=== PATIENT | male | born 1985 | race Caucasian/White ===

== ENCOUNTER 2019-07-01 11:58 | Emergency (ER) | payer BC, MEDICAID, SELFPAY ==
[2019-07-01 12:23] VITALS: BP 135/73; PULSE 95; RESP 18; TEMP 36.9; O2SAT 96
--- NOTE | 2019-07-01 13:17 | ED.SKABFB ---
HPI - Skin/Abscess/Foreign Bdy General Chief complaint: Skin/Abscess/Foreign Body Stated complaint: Open wound on L Arm thats infected Source: patient Mode of arrival: ambulatory Limitations: no limitations History of Present Illness HPI narrative: This 33-year-old male has a long history of IV drug use. He developed drainage from his left forearm a month ago associated with tenderness and redness. The drainage stopped, but recurred 2 weeks ago. He was encouraged to be seen today because it continues to drain. He has pain only when palpated or contused. Ror the last couple of weeks he has also had swelling of his left hand. No history of injecting into hand blood vessels. He has history of recurrent skin abscesses associated his IV drug use. He has been opioid free for the last week or so resulting in familiar shivering and myalgias of withdrawal. He started a methadone treatment today. He denies fever. He has DM- insulin dependent ;his blood sugars have been running between 140 and 160. He checks twice a day; takes insulin 4 times a day Related Data Home Medications Medication Instructions Recorded Confirmed gabapentin 600 mg PO TID 02/13/19 07/01/19 insulin aspart U-100 [Novolog 0 unit SUBCUT TID 02/13/19 07/01/19 Flexpen U-100 Insulin] insulin glargine [Lantus Solostar 30 unit SUBCUT 02/13/19 07/01/19 U-100 Insulin] lamotrigine 100 mg PO TID 02/13/19 07/01/19 trazodone 100 mg PO HS 02/13/19 07/01/19 zolpidem 10 mg PO HS 02/13/19 07/01/19 clonazepam 2 mg PO TID 02/24/19 07/01/19 methadone See Rx Instructions .ROUTE .COMPLEX 07/01/19 Allergies Allergy/AdvReac Type Severity Reaction Status Date / Time No Known Allergies Allergy Unverified 01/05/13 19:19 Review of Systems Constitutional: Constitutional: Reports no additional constitutional complaints ENT: Denies nasal congestion and Denies sore throat Cardiovascular: Cardiovascular: Denies chest pain Respiratory: Respiratory: Denies cough and Denies dyspnea Gastrointestinal: Gastrointestinal: Denies diarrhea, Denies nausea and Denies vomiting PMF Past Medical History Medical History (Updated 07/01/19 @ 20:14 by Adi Babcock MD) Diabetes Drug abuse Opioid use disorder Surgical History Surgical History (Updated 02/24/19 @ 17:30 by Jared Villarreal MD) History of back surgery Family History Family History (Updated 02/24/19 @ 17:30 by Jared Villarreal MD) Father Diabetes mellitus Social History Social History (Updated 02/13/19 @ 16:06 by Adi Woodall MD) Smoking status: Never smoker Substance use: current Substance use type: opiates Exam Const: General: no acute distress Orientation/consciousness: patient oriented x3 Skin: Other: Left forearm is slightly more swollen throughout compared to the right. At the junction of the upper and middle 3rd there is a 2 -3 cm eschar the center of which has a small draining abscess. The discharge is milky white. There is an approximate 7 cm area surrounding this is tender iinduration. There is no bogginess or red streaks going up the arm. The upper 2/3 of the volar forearm skin is thick and indurated. There are no epitrochlear or auxillary lymph nodes. The left hand and fingers are edematous. There is no redness or tenderness. Neuro: General: patient oriented x3 Other: Light touch sensation to the left hand is intact Extrem: Left upper extremity: wrist (full ROM ) normal ROM and hand (full finger extension, full flexion is limited by hand swelling. ) no tenderness Course Vital Signs Vital signs: Vital Signs Temperature 36.9 C 07/01/19 12:23 Pulse Rate 95 07/01/19 12:23 Respiratory Rate 18 07/01/19 12:23 Blood Pressure 135/73 07/01/19 12:23 Pulse Oximetry 96 07/01/19 12:23 Temperature 36.9 C 07/01/19 12:23 Pulse Rate 95 07/01/19 12:23 Respiratory Rate 18 07/01/19 12:23 Blood Pressure 135/73 07/01/19 12:23 Pulse
== END 2019-07-01 13:40 | disposition home or self-care (01) ==
PROVIDERS: Emergency Provider Family Medicine
DX: L03.114 Cellulitis of left upper limb (principal); I89.0 Lymphedema, not elsewhere classified
CPT/HCPCS: 87070; 87077; 87186; 87205; 99283

== ENCOUNTER 2019-09-09 14:13 | Emergency (ER) | payer BC, MEDICAID, SELFPAY ==
--- NOTE | 2019-09-09 14:42 | ED.SKABFB ---
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 Patient states that he has had no fever, shortness of breath, vomiting, or weakness. He states he is recently enrolled in the methadone clinic and had a negative COVID test in the last 3 or 4 days.. States that he was having a sore throat at the time but that has since resolved. MD complaint: abscess/boil Onset (ago): day(s) Location: LUE and RUE Quality: burning and sharp Pain Consistency: constant Exacerbating factors: palpation Context: IVDA Related Data Home Medications Medication Instructions Recorded Confirmed gabapentin 600 mg PO TID 02/13/19 09/09/19 insulin aspart U-100 [Novolog 0 unit SUBCUT TID 02/13/19 09/09/19 Flexpen U-100 Insulin] insulin glargine [Lantus Solostar 30 unit SUBCUT HS 02/13/19 09/09/19 U-100 Insulin] lamotrigine 100 mg PO TID 02/13/19 09/09/19 trazodone 100 mg PO HS 02/13/19 09/09/19 zolpidem 10 mg PO HS 02/13/19 09/09/19 methadone See Rx Instructions .ROUTE .COMPLEX 07/01/19 09/09/19 Allergies Allergy/AdvReac Type Severity Reaction Status Date / Time No Known Allergies Allergy Unverified 09/09/19 14:42 Review of Systems Constitutional: Constitutional: Reports chills and Reports fever(s) ENT: Denies dysphagia, Denies nasal congestion and Denies sore throat Cardiovascular: Cardiovascular: Denies chest pain and Denies radiating jaw, neck or arm pain Respiratory: Respiratory: Denies cough, Denies dyspnea and Denies wheezing Gastrointestinal: Gastrointestinal: Denies abdominal pain, Denies nausea and Denies vomiting Genitourinary: Genitourinary: Denies dysuria and Denies urinary frequency Musculoskeletal: Musculoskeletal: Denies arthralgias and Denies joint swelling Integumentary/Breasts: Skin/Breast: Denies pruritus, Denies erythema and Denies rash Neurologic: Denies vertigo, Denies dizziness and Denies syncope Hematologic/Lymphatic: Hematologic/Lymphatic: Denies easy bleeding and Denies easy bruising Allergic/Immunologic: Allergic/Immunologic: Denies lip swelling and Denies wheezing PMFSH Past Medical History Medical History Diabetes Drug abuse Opioid use disorder Surgical History Surgical History History of back surgery Family History Family History (Updated 02/24/19 @ 17:30 by Jared Villarreal MD) Father Diabetes mellitus Social History Social History Smoking status: Never smoker Substance use: current Substance use type: opiates Gender identity (if verbalized by the patient): Male Exam Const: General: alert Orientation/consciousness: patient oriented x3 Limitations: no limitations Other: Mild acute distress Eyes: Conjunctivae: conjunctivae normal Pupils: Equal, round and reactive pupils present EOM: EOMs intact bilaterally Resp: Effort & Inspection: normal respiratory effort and not labored Auscultation: clear to auscultation bilaterally, no rales, no rhonchi and no wheezes Cardio: Rate: regular rate Rhythm: regular rhythm Heart sounds: no murmurs Skin: General skin exam: normal color, no jaundice and no pallor Rashes: no rashes Other: patient has multiple healing lesions over the forearms left greater than right. There is a erythematous and tender area of swelling near the right lateral epicondyle of the elbow which is nonfluctuant and only mildly indurated. There is some mild warmth without erythema of the lef
[2019-09-09 14:48] VITALS: BP 144/84; PULSE 63; RESP 12; TEMP 37.3; O2SAT 98
== END 2019-09-09 15:12 | disposition home or self-care (01) ==
PROVIDERS: Emergency Provider Emergency Medicine
DX: L02.414 Cutaneous abscess of left upper limb (principal); L02.413 Cutaneous abscess of right upper limb
CPT/HCPCS: 99283

== ENCOUNTER 2020-01-10 13:45 | Emergency (ER) | payer BC, MEDICAID, SELFPAY ==
[2020-01-10 14:10] VITALS: BP 150/68; PULSE 88; RESP 20; TEMP 36.7; O2SAT 95
--- NOTE | 2020-01-10 14:30 | ED.GENADULT ---
HPI - General Adult General Chief complaint: Extremity Injury, Upper Stated complaint: pain in both arms Source: patient Mode of arrival: ambulatory Limitations: no limitations History of Present Illness HPI narrative: Keanu is a 34M with a PMH significant for IV drug use and recurrent cellulitis. Over the last few days he has had increasing swelling, warmth, redness, tenderness and weaping from his injection sites and arm wounds. He has several episodes of cellulitis that have presented this way in the past. He denies any fevers, chills, nausea, vomiting, CP or SOB. Related Data Home Medications Medication Instructions Recorded Confirmed gabapentin 600 mg PO TID 02/13/19 09/09/19 insulin aspart U-100 [Novolog 0 unit SUBCUT TID 02/13/19 09/09/19 Flexpen U-100 Insulin] insulin glargine [Lantus Solostar 30 unit SUBCUT HS 02/13/19 09/09/19 U-100 Insulin] lamotrigine 100 mg PO TID 02/13/19 09/09/19 trazodone 100 mg PO HS 02/13/19 09/09/19 zolpidem 10 mg PO HS 02/13/19 09/09/19 methadone See Rx Instructions .ROUTE .COMPLEX 07/01/19 09/09/19 Allergies Allergy/AdvReac Type Severity Reaction Status Date / Time No Known Allergies Allergy Unverified 09/09/19 14:42 Review of Systems Constitutional: Constitutional: Denies chills, Denies fever(s) and Denies weakness Eyes: Eyes: Reports no additional eye complaints ENT: Reports system reviewed and no additional complaints, except as documented Cardiovascular: Cardiovascular: Reports no additional cardiovascular complaints Respiratory: Respiratory: Reports no additional respiratory complaints Gastrointestinal: Gastrointestinal: Reports no additional gastrointestinal complaints Genitourinary: Genitourinary: Reports no additional male genitourinary complaints Musculoskeletal: Musculoskeletal: Reports no additional musculoskeletal complaints Integumentary/Breasts: Skin/Breast: Reports as per HPI Neurologic: Reports system reviewed and no additional complaints, except as documented Psychiatric: Psychiatric: Reports no additional psychiatric complaints Endocrine: Endocrine: Reports no additional endocrine complaints Hematologic/Lymphatic: Hematologic/Lymphatic: Reports no additional hematologic/lymphatic complaints Allergic/Immunologic: Allergic/Immunologic: Reports no additional allergic/immunologic complaints [facility] Past Medical History Medical History Diabetes Drug abuse Opioid use disorder Surgical History Surgical History History of back surgery Family History Family History Father Diabetes mellitus Social History Social History Smoking status: Never smoker Substance use: current Substance use type: opiates Gender identity (if verbalized by the patient): Male Exam Const: General: no acute distress and alert Orientation/consciousness: patient oriented x3 Limitations: No altered mental status HENMT: Head: normal to inspection Eyes: Pupils: Equal, round and reactive pupils present Neck: Neck: normal visual inspection Resp: Effort & Inspection: normal respiratory effort Auscultation: clear to auscultation bilaterally Cardio: Rate: regular rate Rhythm: regular rhythm Heart sounds: no murmurs GI: Inspection: non-distended GI Palp: Yes Soft to palpation, No Tenderness to palpation present (GI) and No Guarding due to palpation present (GI) Skin: Other: Forearms were covered with many scarred over lesions bilaterally. Several had overlying redness and induration and were TTP and warm. Some had drainage. Peripheral pulses and sensation intact. No splinter hemorrhages or osler nodes. Neuro: General: patient oriented x3 and moves all extremities Extrem: General: normal to inspection Psych: Mental Status: menta
[2020-01-10] MEDS: CEPHALEXIN 500 MG CAPSULE (14:46)
[2020-01-10 14:57] VITALS: PULSE 84; RESP 20; O2SAT 96
== END 2020-01-10 14:58 | disposition home or self-care (01) ==
PROVIDERS: Emergency Provider Family Medicine
DX: L03.90 Cellulitis, unspecified (principal)
CPT/HCPCS: 99283; A9270

== ENCOUNTER 2020-03-04 16:16 | Emergency (ER) | payer BC, MEDICAID, SELFPAY ==
--- NOTE | 2020-03-04 16:39 | ED.WOUNDLAC ---
HPI - Wound/Laceration General Chief Complaint: Wound/Laceration Stated Complaint: wound infections Source: patient Mode of arrival: ambulatory History of Present Illness HPI narrative: this is a 34-year-old gentleman heroin abuser injects in his lower extremities history of diabetes and hypertension presents today with skin lesions currently there is no drainage but is located bilateral lateral aspect of his thighs with some erythema warmth and tenderness the area extends about 3cm in diameter and both lower extremities. The patient otherwise has no fever chills no shortness of breath no abdominal pain no chest pain no nausea vomiting no diarrhea constipation. Onset (ago): day(s) Location: other ( lower extremities) Extremity Location: Right: thigh ( skin wounds) Place: home Patient tetanus UTD: Yes Context: other ( heroin user) Associated symptoms: pain Related Data Home Medications Medication Instructions Recorded Confirmed gabapentin 600 mg PO TID 02/13/19 09/09/19 insulin aspart U-100 [Novolog 0 unit SUBCUT TID 02/13/19 09/09/19 Flexpen U-100 Insulin] insulin glargine [Lantus Solostar 30 unit SUBCUT HS 02/13/19 09/09/19 U-100 Insulin] lamotrigine 100 mg PO TID 02/13/19 09/09/19 trazodone 100 mg PO HS 02/13/19 09/09/19 zolpidem 10 mg PO HS 02/13/19 09/09/19 methadone See Rx Instructions .ROUTE .COMPLEX 07/01/19 09/09/19 Allergies Allergy/AdvReac Type Severity Reaction Status Date / Time No Known Allergies Allergy Unverified 03/04/20 16:46 Review of Systems Review of Systems: All systems reviewed & are unremarkable except as noted in HPI and below [facility] Past Medical History Medical History (Updated 03/04/20 @ 16:45 by Aung Olmos MD) Diabetes Drug abuse Opioid use disorder Surgical History Surgical History History of back surgery Family History Family History Father Diabetes mellitus Social History Social History Smoking status: Never smoker Substance use: current Substance use type: opiates Gender identity (if verbalized by the patient): Male Exam Const: General: no acute distress HENMT: Head: normal to inspection Eyes: Conjunctivae: conjunctivae normal Pupils: Equal, round and reactive pupils present EOM: EOMs intact bilaterally Neck: Neck: normal visual inspection, no lymphadenopathy and no meningeal signs Chest: Chest palpation & inspection: normal inspection of the chest Resp: Effort & Inspection: normal respiratory effort Auscultation: clear to auscultation bilaterally Cardio: Rate: regular rate Rhythm: regular rhythm GI: GI Palp: Yes Soft to palpation Skin: Other: Skin lesions with erythema bilateral lower extremities both lesions about 3cm in diameter warm and tender to touch with no drainage Neuro: General: patient oriented x3, moves all extremities, no meningeal signs and no focal motor deficits Extrem: General: normal to inspection and no pedal edema Psych: Appearance: grossly normal Mental Status: mental status grossly normal Affect: normal affect Course Course Emergency Course: patient given a dose of IM ceftriaxone and advised patient that we will be sending antibiotics and antibacterial ointment to his pharmacy, and to establish with primary care physician. Critical Care Time Critical Care Time Critical Care Time: No Discharge Plan Discharge Clinical Impression: Cellulitis Qualifiers: Site of cellulitis: extremity Site of cellulitis of extremity: lower extremity Laterality: unspecified laterality Qualified Code(s): L03.119 - Cellulitis of unspecified part of limb Patient Disposition: Home, Self-Care Condition: Stable Instructions: Antibiotic Form, Cellulitis (ED) Additional Instructions: take medicine as prescribed and follow-up with primary care physi
[2020-03-04 16:40] VITALS: BP 180/110; PULSE 88; RESP 20; TEMP 36.1; O2SAT 96
[2020-03-04] MEDS: cefTRIAXone 1 GM VIAL IM (17:00)
[2020-03-04] MEDS: LIDOCAINE HCL 1% LOCAL INJ 20 ML VIAL (17:02)
[2020-03-04 17:19] VITALS: BP 132/62; PULSE 84; RESP 20; O2SAT 96
== END 2020-03-04 17:20 | disposition home or self-care (01) ==
PROVIDERS: Emergency Provider Emergency Medicine
DX: L03.119 Cellulitis of unspecified part of limb (principal)
CPT/HCPCS: 96372; 99283; J0696

== ENCOUNTER 2020-03-16 16:13 | Emergency (ER) | payer BC, MEDICAID, SELFPAY ==
[2020-03-16 16:29] VITALS: BP 131/88; PULSE 96; RESP 20; TEMP 36.3; O2SAT 96
--- NOTE | 2020-03-16 16:42 | ED.WOUNDLAC ---
HPI - Wound/Laceration General Chief Complaint: Wound/Laceration Stated Complaint: infections in legs and arms Time Seen by Provider: 03/16/20 16:40 Source: patient Mode of arrival: ambulatory Limitations: no limitations History of Present Illness HPI narrative: Patient comes in having a sore area on his right thigh. He has been shooting heroin in this area. This area has been sore for some weeks. He has not had any fever or chills. The area appears to have some low grade infection, but does not need to be drained. Onset (ago): week(s) Extremity Location: Right: thigh Associated symptoms: other (mild pain) Treatments prior to arrival: NSAIDS Related Data Home Medications Medication Instructions Recorded Confirmed gabapentin 600 mg PO TID 02/13/19 03/04/20 insulin aspart U-100 [Novolog 0 unit SUBCUT TID 02/13/19 03/04/20 Flexpen U-100 Insulin] insulin glargine [Lantus Solostar 60 unit SUBCUT HS 02/13/19 03/04/20 U-100 Insulin] lamotrigine 100 mg PO TID 02/13/19 03/04/20 trazodone 100 mg PO HS 02/13/19 03/04/20 methadone See Rx Instructions .ROUTE .COMPLEX 07/01/19 03/04/20 alprazolam [Xanax] 2 mg PO TID 03/04/20 03/04/20 paroxetine HCl 20 mg PO BID 03/04/20 03/04/20 Allergies Allergy/AdvReac Type Severity Reaction Status Date / Time No Known Allergies Allergy Unverified 03/04/20 16:46 Review of Systems Constitutional: Constitutional: Reports no additional constitutional complaints Eyes: Eyes: Reports no additional eye complaints ENT: Reports system reviewed and no additional complaints, except as documented Cardiovascular: Cardiovascular: Reports no additional cardiovascular complaints Respiratory: Respiratory: Reports no additional respiratory complaints Gastrointestinal: Gastrointestinal: Reports no additional gastrointestinal complaints Genitourinary: Genitourinary: Reports no additional male genitourinary complaints Musculoskeletal: Musculoskeletal: Reports no additional musculoskeletal complaints Integumentary/Breasts: Skin/Breast: Reports system reviewed and no additional complaints, except as docu Neurologic: Reports system reviewed and no additional complaints, except as documented Psychiatric: Psychiatric: Reports no additional psychiatric complaints Endocrine: Endocrine: Reports no additional endocrine complaints Hematologic/Lymphatic: Hematologic/Lymphatic: Reports no additional hematologic/lymphatic complaints Allergic/Immunologic: Allergic/Immunologic: Reports no additional allergic/immunologic complaints [facility] Past Medical History Medical History Diabetes Drug abuse Opioid use disorder Surgical History Surgical History History of back surgery Family History Family History Father Diabetes mellitus Social History Social History Smoking status: Never smoker Substance use: current Substance use type: opiates Gender identity (if verbalized by the patient): Female Exam Const: General: no acute distress and alert Orientation/consciousness: patient oriented x3 HENMT: Head: normal to inspection Ears: external ears normal and TM's normal bilaterally Face and sinus: normal facial exam Mouth: Yes Normal oral and palatal mucosa present and Yes moist mucous membranes Throat: posterior oropharynx normal Eyes: Conjunctivae: conjunctivae normal Pupils: Equal, round and reactive pupils present Neck: Neck: normal visual inspection and no lymphadenopathy Chest: Chest palpation & inspection: normal inspection of the chest Resp: Effort & Inspection: normal respiratory effort Auscultation: clear to auscultation bilaterally Cardio: Rate: regular rate Rhythm: regular rhythm GI: GI Palp: Yes Soft to palpation Auscultation: normal bowel sounds Back/Spine/Pelvis: B
[2020-03-16 16:50] VITALS: PULSE 90; RESP 20; O2SAT 97
== END 2020-03-16 17:00 | disposition home or self-care (01) ==
PROVIDERS: Emergency Provider Emergency Medicine
DX: L03.90 Cellulitis, unspecified (principal); F19.90 Other psychoactive substance use, unspecified, uncomplicated
CPT/HCPCS: 99283

== ENCOUNTER 2020-06-01 16:19 | Emergency (ER) | payer BC, MEDICAID, SELFPAY ==
[2020-06-01 16:39] VITALS: BP 139/70; PULSE 64; RESP 18; TEMP 36.6; O2SAT 99
--- NOTE | 2020-06-01 16:42 | ED.SKABFB ---
HPI - Skin/Abscess/Foreign Bdy General Chief complaint: Wound/Laceration Stated complaint: swelling in arms and legs from IV drug use Time Seen by Provider: 06/01/20 16:21 Source: patient Mode of arrival: ambulatory Limitations: no limitations History of Present Illness HPI narrative: 34-year-old man who has history of IV drug use comes in today complaining of swelling in his arms and legs. States he has multiple abscesses that he has no areas right now that are particularly problematic other than some ulcerations on his left lateral thigh. Has no wound drainage, fever, nausea, vomiting, dysuria, abdominal pain, difficulty breathing or difficulty swallowing. He has been in a methadone program for several months. MD complaint: abscess/boil Onset (ago): week(s) Location: LUE, RUE and LLE Severity: moderate Quality: sharp Pain Consistency: constant Relieving factors: none Exacerbating factors: palpation and movement Associated symptoms: denies other symptoms Related Data Home Medications Medication Instructions Recorded Confirmed gabapentin 600 mg PO TID 02/13/19 06/01/20 insulin aspart U-100 [Novolog 0 unit SUBCUT TID 02/13/19 06/01/20 Flexpen U-100 Insulin] insulin glargine [Lantus Solostar 60 unit SUBCUT HS 02/13/19 06/01/20 U-100 Insulin] trazodone 100 mg PO HS 02/13/19 06/01/20 methadone See Rx Instructions .ROUTE .COMPLEX 07/01/19 06/01/20 alprazolam [Xanax] 2 mg PO TID 03/04/20 06/01/20 paroxetine HCl 20 mg PO BID 03/04/20 06/01/20 Allergies Allergy/AdvReac Type Severity Reaction Status Date / Time No Known Allergies Allergy Unverified 03/04/20 16:46 Review of Systems Review of Systems: All systems reviewed & are unremarkable except as noted in HPI and below Constitutional: Constitutional: Denies chills, Denies fever(s) and Denies weakness Eyes: Eyes: Denies change in vision and Denies photophobia ENT: Reports nasal congestion ( Chronic -uses Sudafed) and Denies sore throat Cardiovascular: Cardiovascular: Denies chest pain and Denies radiating jaw, neck or arm pain Respiratory: Respiratory: Denies cough and Denies dyspnea Gastrointestinal: Gastrointestinal: Denies abdominal pain, Reports constipation, Denies nausea and Denies vomiting Genitourinary: Genitourinary: Denies dysuria and Denies urinary frequency Comments: complains of urinary hesitation Musculoskeletal: Musculoskeletal: Denies arthralgias and Denies joint swelling Integumentary/Breasts: Skin/Breast: Denies pruritus, Denies erythema and Denies rash Neurologic: Denies vertigo, Denies dizziness and Denies syncope Hematologic/Lymphatic: Hematologic/Lymphatic: Denies easy bleeding and Denies easy bruising Allergic/Immunologic: Allergic/Immunologic: Denies lip swelling and Denies throat swelling PMFSH Past Medical History Medical History (Updated 06/01/20 @ 16:54 by Adi Woodall MD) Diabetes Drug abuse Opioid use disorder Surgical History Surgical History History of back surgery Family History Family History Father Diabetes mellitus Social History Social History Smoking status: Never smoker Substance use: current Substance use type: opiates Gender identity (if verbalized by the patient): Female Exam Const: General: no acute distress, alert and ill appearing chronically Nutritional Appearance: obese Orientation/consciousness: patient oriented x3 HENMT: Head: normal to inspection Ears: external ears normal and TM's normal bilaterally General nose exam: Normal nares present Face and sinus: normal facial exam Mouth: Yes moist mucous membranes Throat: posterior oropharynx normal Eyes: Conjunctivae: conjunctivae normal Pupils: Equal, round and reactive pupils present EOM: EOMs intact bilaterally Neck: Neck: normal visual inspection and
== END 2020-06-01 16:58 | disposition home or self-care (01) ==
PROVIDERS: Emergency Provider Emergency Medicine
DX: F19.90 Other psychoactive substance use, unspecified, uncomplicated (principal); T14.8XXA Other injury of unspecified body region, initial encounter
CPT/HCPCS: 99283

== ENCOUNTER 2020-06-09 16:37 | Emergency (ER) | payer BC, MEDICAID, SELFPAY ==
[2020-06-09 16:45] VITALS: BP 133/69; PULSE 60; RESP 16; TEMP 37.3; O2SAT 97
--- NOTE | 2020-06-09 17:09 | ED.GENADULT ---
HPI - General Adult General Chief complaint: Wound/Laceration Stated complaint: abcsess, swollen arms and legs Source: patient Mode of arrival: ambulatory Limitations: no limitations History of Present Illness HPI narrative: Keanu is 34M with a PMH of IV drug use, opioid use disorder, diabetes and recurrent cellulitis that prestned to the ED with worsening pain, swelling, redness around some of his injection sites. He has been treated many time for this in our emergency department. He was treated 8 days ago and was originally getting better but it started to get worse a few days ago. He has been treated with bactrim alone, clindamycin, and Bactrim and keflex at the same time. He believes the combination has worked the best. He denies fevers, chills, N/V, chest pain and trouble breathing. Related Data Home Medications Medication Instructions Recorded Confirmed insulin aspart U-100 [Novolog 1 unit SUBCUT TID 02/13/19 06/09/20 Flexpen U-100 Insulin] insulin glargine [Lantus Solostar 60 unit SUBCUT HS 02/13/19 06/09/20 U-100 Insulin] trazodone 100 mg PO HS 02/13/19 06/09/20 methadone See Rx Instructions .ROUTE .COMPLEX 07/01/19 06/09/20 paroxetine HCl 20 mg PO BID 03/04/20 06/09/20 lamotrigine 100 mg PO DAILY 06/09/20 06/09/20 Allergies Allergy/AdvReac Type Severity Reaction Status Date / Time No Known Allergies Allergy Unverified 03/04/20 16:46 Review of Systems Constitutional: Constitutional: Reports no additional constitutional complaints Eyes: Eyes: Reports no additional eye complaints ENT: Reports system reviewed and no additional complaints, except as documented Cardiovascular: Cardiovascular: Reports no additional cardiovascular complaints Respiratory: Respiratory: Reports no additional respiratory complaints Gastrointestinal: Gastrointestinal: Reports no additional gastrointestinal complaints Genitourinary: Genitourinary: Reports no additional male genitourinary complaints Musculoskeletal: Musculoskeletal: Reports no additional musculoskeletal complaints Integumentary/Breasts: Skin/Breast: Reports as per HPI Neurologic: Reports system reviewed and no additional complaints, except as documented Psychiatric: Psychiatric: Reports no additional psychiatric complaints Endocrine: Endocrine: Reports no additional endocrine complaints Hematologic/Lymphatic: Hematologic/Lymphatic: Reports no additional hematologic/lymphatic complaints Allergic/Immunologic: Allergic/Immunologic: Reports no additional allergic/immunologic complaints [facility] Past Medical History Medical History Diabetes Drug abuse Opioid use disorder Surgical History Surgical History History of back surgery Family History Family History Father Diabetes mellitus Social History Social History Smoking status: Never smoker Substance use: current Substance use type: opiates Gender identity (if verbalized by the patient): Female Exam Const: General: no acute distress and alert Orientation/consciousness: patient oriented x3 Limitations: No altered mental status HENMT: Head: normal to inspection Other: atraumatic Eyes: Conjunctivae: conjunctivae normal Pupils: Equal, round and reactive pupils present Neck: Neck: normal visual inspection Chest: Chest palpation & inspection: normal inspection of the chest and abnormal inspection of the chest Resp: Effort & Inspection: normal respiratory effort, not labored and not tachypneic Cardio: Rate: regular rate Rhythm: regular rhythm Heart sounds: no murmurs GI: Inspection: non-distended GI Palp: Yes Soft to palpation, No Tenderness to palpation present (GI) and No Guarding due to palpation present (GI) Skin: Other: Countless scars on the extremitie
[2020-06-09] MEDS: CEPHALEXIN 500 MG CAPSULE PO (17:18)
[2020-06-09 17:27] VITALS: RESP 17
== END 2020-06-09 17:30 | disposition home or self-care (01) ==
PROVIDERS: Emergency Provider Family Medicine
DX: L03.90 Cellulitis, unspecified (principal); F19.90 Other psychoactive substance use, unspecified, uncomplicated
CPT/HCPCS: 99283; A9270

== ENCOUNTER 2020-06-12 11:45 | Outpatient (CLI) | payer BC, MEDICAID, SELFPAY | END 2020-06-12 11:46 | disposition home or self-care (01) | LOC: CHSCOVIDVC 11:46 | DX: Z23 Encounter for immunization (principal) | CPT/HCPCS: 0011A; 91301 ==

== ENCOUNTER 2020-07-10 11:21 | Outpatient (CLI) | payer BC, MEDICAID, SELFPAY | END 2020-07-10 11:22 | disposition home or self-care (01) | LOC: CHSCOVIDVC 11:21 | DX: Z23 Encounter for immunization (principal) | CPT/HCPCS: 0012A; 91301 ==

== ENCOUNTER 2020-08-27 14:24 | Emergency (ER) | payer BC, MEDICAID, SELFPAY ==
[2020-08-27 15:15] VITALS: BP 127/84; PULSE 77; RESP 14; TEMP 37.1; O2SAT 100
[2020-08-27 15:28] VITALS: BP 127/84; PULSE 77; RESP 14; TEMP 37.1; O2SAT 100
--- NOTE | 2020-08-27 15:38 | ED.SKABFB ---
HPI - Skin/Abscess/Foreign Bdy General Source: patient and family Mode of arrival: ambulatory Limitations: no limitations History of Present Illness HPI narrative: Patient comes in with history of right arm swelling. This has gone on for several days. He states he uses IV drugs and complains of right hand soreness, where he has used IV narcotics. I see no actual phlebitis, cannot feel a cord. He does appear to have a mild cellulitis on his left hand. This has been ongoing with swelling to the arm for about 3 days he says. The cellulitis evidently just developed, as he states this has been present for 3 days. No fever, no chill, he denies other symptoms as well. Warm water used on these sore areas in hand has not decreased the pain or swelling. Discomfort has been moderately severe, ongoing for 3 days, not relieved by ibuprofen at home. MD complaint: discoloration and other (cellulitis on left hand size of silver dollar area. ) Onset (ago): day(s) Tetanus up to date: yes Location: L hand Severity: moderate Quality: aching Pain Consistency: constant Relieving factors: none Exacerbating factors: movement Context: other (recent IV drug use at hand site of inflamation) Associated symptoms: denies other symptoms Treatments prior to arrival: NSAID Related Data Home Medications Medication Instructions Recorded Confirmed insulin aspart U-100 [Novolog 1 unit SUBCUT TID 02/13/19 08/27/20 Flexpen U-100 Insulin] insulin glargine [Lantus Solostar 60 unit SUBCUT HS 02/13/19 08/27/20 U-100 Insulin] trazodone 100 mg PO HS 02/13/19 08/27/20 lamotrigine 100 mg PO DAILY 06/09/20 08/27/20 alprazolam 2 mg PO PRN 08/27/20 08/27/20 Allergies Allergy/AdvReac Type Severity Reaction Status Date / Time No Known Allergies Allergy Unverified 03/04/20 16:46 Review of Systems Constitutional: Constitutional: Reports no additional constitutional complaints Eyes: Eyes: Reports no additional eye complaints ENT: Reports system reviewed and no additional complaints, except as documented Cardiovascular: Cardiovascular: Reports no additional cardiovascular complaints Respiratory: Respiratory: Reports no additional respiratory complaints Gastrointestinal: Gastrointestinal: Reports no additional gastrointestinal complaints Genitourinary: Genitourinary: Reports no additional male genitourinary complaints Musculoskeletal: Comments: complaints of hand swelling on rght hand and forearm Integumentary/Breasts: Skin/Breast: Reports system reviewed and no additional complaints, except as docu Neurologic: Reports system reviewed and no additional complaints, except as documented Psychiatric: Psychiatric: Reports no additional psychiatric complaints Endocrine: Endocrine: Reports no additional endocrine complaints Hematologic/Lymphatic: Hematologic/Lymphatic: Reports no additional hematologic/lymphatic complaints Allergic/Immunologic: Allergic/Immunologic: Reports no additional allergic/immunologic complaints [facility] Past Medical History Medical History Diabetes Drug abuse Opioid use disorder Surgical History Surgical History History of back surgery Family History Family History Father Diabetes mellitus Social History Social History Smoking status: Never smoker Substance use: current Substance use type: opiates Gender identity (if verbalized by the patient): Female Exam Const: General: no acute distress and alert Orientation/consciousness: patient oriented x3 HENMT: Head: normal to inspection Ears: external ears normal and TM's normal bilaterally General nose exam: Normal nares present Mouth: Yes Normal oral and palatal mucosa present Throat: posterior oropharynx normal Eyes: Conjunctivae: conjunctivae no
[2020-08-27] MEDS: cefTRIAXone 1 GM VIAL IM (15:50)
[2020-08-27 15:56] VITALS: RESP 14
== END 2020-08-27 15:58 | disposition home or self-care (01) ==
PROVIDERS: Emergency Provider Emergency Medicine
DX: L03.113 Cellulitis of right upper limb (principal); I82.621 Acute embolism and thrombosis of deep veins of right upper extremity; F19.10 Other psychoactive substance abuse, uncomplicated
CPT/HCPCS: 96372; 99283; J0696

== ENCOUNTER 2020-09-30 19:35 | Emergency (ER) | payer BC, MEDICAID, SELFPAY ==
[2020-09-30 19:51] VITALS: BP 138/97; PULSE 74; RESP 20; TEMP 36.7; O2SAT 99
--- NOTE | 2020-09-30 20:19 | ED.SKABFB ---
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 He states when he gets this way, he usually gets antibiotics and things get better. thats all he wants tonight is a prescription for antibiotics, and refuses to get any other blood work at this time. Please see hospital course for remainder of discussion related MD complaint: other (swelling) Onset (ago): year(s) Location: [facility] [place] [place] [place] Severity: moderate Relieving factors: none Exacerbating factors: none Associated symptoms: denies other symptoms Treatments prior to arrival: none Related Data Home Medications Medication Instructions Recorded Confirmed insulin aspart U-100 [Novolog 1 unit SUBCUT TID 02/13/19 09/30/20 Flexpen U-100 Insulin] insulin glargine [Lantus Solostar 30 unit SUBCUT HS 02/13/19 09/30/20 U-100 Insulin] lamotrigine 100 mg PO DAILY 06/09/20 09/30/20 alprazolam 2 mg PO PRN 08/27/20 09/30/20 fenofibrate 160 mg PO DAILY 09/30/20 09/30/20 zolpidem [Ambien] 10 mg PO HS 09/30/20 09/30/20 Allergies Allergy/AdvReac Type Severity Reaction Status Date / Time No Known Allergies Allergy Unverified 03/04/20 16:46 Review of Systems Constitutional: Constitutional: Reports no additional constitutional complaints and Reports fatigue Comments: i feel like a heroin addict Eyes: Eyes: Reports no additional eye complaints ENT: Reports system reviewed and no additional complaints, except as documented Cardiovascular: Cardiovascular: Reports no additional cardiovascular complaints Respiratory: Respiratory: Reports no additional respiratory complaints Gastrointestinal: Gastrointestinal: Reports no additional gastrointestinal complaints Genitourinary: Genitourinary: Reports no additional male genitourinary complaints Musculoskeletal: Musculoskeletal: Reports joint swelling and Reports muscle cramps Neurologic: Reports system reviewed and no additional complaints, except as documented Psychiatric: Psychiatric: Reports no additional psychiatric complaints Allergic/Immunologic: Allergic/Immunologic: Reports no additional allergic/immunologic complaints [facility] Past Medical History Medical History (Updated 09/30/20 @ 20:30 by Laura Shrestha MD) Diabetes Drug abuse Opioid use disorder Surgical History Surgical History History of back surgery Family History Family History Father Diabetes mellitus Social History Social History Smoking status: Never smoker Substance use: current Substance use type: opiates Gender identity (if verbalized by the patient): Male Exam Const: General: no acute distress, alert and ill appearing Orientation/consciousness: patient oriented x3 Other: very pale, pale lips, generalized ansarca HENMT: Teeth and gingiva: abnormal dentition and abnormal tooth and associated gingiva Eyes: Pupils: Equal, round and reactive pupils present Other: very pale conj Resp: Effort & Inspection: normal respiratory effort Auscultation: clear to auscultation bilaterally Cardio: Rate: regular rate Rhythm: regular rhythm GI: Inspection: non-distended GI Palp: Yes Soft to palpation and No Tenderness to palpation present (GI) Auscultation: normal bowel sounds Skin: Other: wounds all over, chronic appearance, ansarca widespread Neuro: General: moves all extremities Extrem: General: edema (arms and legs) bilateral Psych: Appearance: grossly normal Mental Status: mental status grossly normal Affect: normal affect Other: fully comprehends his decisions
--- NOTE | 2020-09-30 20:36 | PC.NURSE ---
global technical writer with , while reviewing the benefits of having further test, her concern for heart & kidney failure due to infection & drug abuse. Patient did not want test, stated would follow up with primary for test. Opted to leave MD WILFREDO did give follow up information & sent prescription to [facility].
== END 2020-09-30 20:35 | disposition left against medical advice (07) ==
PROVIDERS: Emergency Provider Emergency Medicine
DX: L02.419 Cutaneous abscess of limb, unspecified (principal); F19.90 Other psychoactive substance use, unspecified, uncomplicated
CPT/HCPCS: 99283

== ENCOUNTER 2020-11-01 17:14 | Emergency (ER) | payer BC, MEDICAID, SELFPAY | END 2020-11-01 17:29 | disposition left against medical advice (07) | PROVIDERS: Emergency Provider Emergency Medicine | DX: Z53.8 Procedure and treatment not carried out for other reasons (principal) | CPT/HCPCS: 99199 ==

== ENCOUNTER 2020-11-03 13:28 | Emergency (ER) | payer BC, MEDICAID, SELFPAY ==
[2020-11-03 13:56] VITALS: BP 158/76; PULSE 87; RESP 20; TEMP 36.8; O2SAT 98
--- NOTE | 2020-11-03 14:08 | ED.GENADULT ---
HPI - General Adult General Chief complaint: Skin/Abscess/Foreign Body Stated complaint: Bloated legs and arms from IV drug use Source: patient Mode of arrival: ambulatory Limitations: no limitations History of Present Illness HPI narrative: Keanu is a 35M with a PMH of IV opioid use and recurrent abscess that presented to the ED with worsening abscesses on his left forearm and lateral thigh. He is well known to this ER and has been treated for the same thing many times. He denies fevers, chills, N/V, SOB, and CP. He denied any labs. He states that no one can find his veins so there is no point. Related Data Home Medications Medication Instructions Recorded Confirmed insulin aspart U-100 [Novolog 1 unit SUBCUT TID 02/13/19 11/03/20 Flexpen U-100 Insulin] insulin glargine [Lantus Solostar 30 unit SUBCUT HS 02/13/19 11/03/20 U-100 Insulin] lamotrigine 100 mg PO DAILY 06/09/20 11/03/20 alprazolam 2 mg PO PRN 08/27/20 11/03/20 fenofibrate 160 mg PO DAILY 09/30/20 11/03/20 zolpidem [Ambien] 10 mg PO HS 09/30/20 11/03/20 paroxetine HCl 20 mg PO DAILY 11/03/20 11/03/20 Allergies Allergy/AdvReac Type Severity Reaction Status Date / Time No Known Allergies Allergy Unverified 11/03/20 14:01 Review of Systems Constitutional: Constitutional: Reports no additional constitutional complaints Eyes: Eyes: Reports no additional eye complaints ENT: Reports system reviewed and no additional complaints, except as documented Cardiovascular: Cardiovascular: Reports no additional cardiovascular complaints Respiratory: Respiratory: Reports no additional respiratory complaints Gastrointestinal: Gastrointestinal: Reports no additional gastrointestinal complaints Genitourinary: Genitourinary: Reports no additional male genitourinary complaints Musculoskeletal: Musculoskeletal: Reports no additional musculoskeletal complaints Integumentary/Breasts: Skin/Breast: Reports as per HPI Neurologic: Reports system reviewed and no additional complaints, except as documented Psychiatric: Psychiatric: Reports anxiety and Reports depression Endocrine: Endocrine: Reports no additional endocrine complaints Hematologic/Lymphatic: Hematologic/Lymphatic: Reports no additional hematologic/lymphatic complaints Allergic/Immunologic: Allergic/Immunologic: Reports no additional allergic/immunologic complaints [facility] Past Medical History Medical History Diabetes Drug abuse Opioid use disorder Surgical History Surgical History History of back surgery Family History Family History Father Diabetes mellitus Social History Social History Smoking status: Never smoker Substance use: current Substance use type: opiates Gender identity (if verbalized by the patient): Male Exam Const: General: no acute distress and alert Orientation/consciousness: patient oriented x3 Limitations: No altered mental status HENMT: Head: normal to inspection Mouth: Yes Normal oral and palatal mucosa present Eyes: Conjunctivae: conjunctivae normal Pupils: Equal, round and reactive pupils present Neck: Neck: normal visual inspection Chest: Chest palpation & inspection: normal inspection of the chest Resp: Effort & Inspection: normal respiratory effort, not labored, not tachypneic and no use of accessory muscles Auscultation: clear to auscultation bilaterally Cardio: Rate: regular rate Rhythm: regular rhythm Heart sounds: no murmurs GI: Auscultation: normal bowel sounds Skin: Other: There were several non-healing wounds from dime to quarter sized on the posterior side of his forearm with eschar, surrounding erythema and purulent drainage. There were also several similar wounds on the outside of his left thigh Neuro:
[2020-11-03] MEDS: CEPHALEXIN 500 MG CAPSULE PO (14:10)
== END 2020-11-03 14:36 | disposition left against medical advice (07) ==
PROVIDERS: Emergency Provider Family Medicine; PCP Physician Assistant
DX: L02.91 Cutaneous abscess, unspecified (principal)
CPT/HCPCS: 99283; A9270

== ENCOUNTER 2021-07-11 11:43 | Emergency (ER) | payer BC, MEDICAID, SELFPAY ==
--- NOTE | ~2021-07-11 | CT_ITS ---
EXAMINATION: CT brain wo con DATE: 07/11/2021 13:56 INDICATION: Lethargy, weakness. Blurred vision, sensitivity to light, dizziness for 2 weeks TECHNIQUE: Computed tomography (CT) of the head was performed without intravenous contrast. The mA wa s adjusted according to patient size. Iterative reconstruction technique was employed. Exam dose: 60 5.33 mGy-cm total exam DLP. COMPARISON: 12/25/2010 CT head FINDINGS: There is greater than expected cerebral cortical atrophy for age, particularly in the front al regions. No intracranial mass lesion or hemorrhage or cerebrovascular accident is evident. No midline shift or mass effect. No subdural or epidural hematoma. No fracture or bone destruction of the cranial vault. The mastoid air cells and included paranasal si nuses appear normal. IMPRESSION: Greater than expected cerebral volume loss for age No acute intracranial finding Reviewed, dictated and finalized at [facility] Reviewed, dictated and finalized at [facility].
[2021-07-11 11:55] VITALS: BP 151/101; PULSE 103; RESP 18; TEMP 36.6; O2SAT 99
--- NOTE | 2021-07-11 12:11 | ED.GENADULT ---
HPI - General Adult General Chief complaint: Weakness Stated complaint: confused, back and abd pain, weak, no appetite History of Present Illness HPI narrative: Keanu is a 35M with a PMH of opoid use disorder, diabetes, mood disorder, and hypertension that presented to the ED with concerns of not feeling well. He started detoxing from opioids and alprazolam cold turkey a couple weeks ago. Since then he has had chills, sweats, felt confused ached and had diffuse pain despite no injuries/falls. He has also not been taking his meds for his diabetes. He denies CP, SOB, syncope, and diarrhea. Related Data Home Medications Medication Instructions Recorded Confirmed insulin aspart U-100 100 unit/mL 1 unit subcut TID 02/13/19 07/11/21 (3 mL) subcutaneous pen (Novolog Flexpen U-100 Insulin aspart) insulin glargine 100 unit/mL (3 30 unit subcut HS 02/13/19 07/11/21 mL) subcutaneous pen (Lantus Solostar U-100 Insulin) alprazolam 2 mg tablet 2 mg PO PRN 08/27/20 07/11/21 Allergies Allergy/AdvReac Type Severity Reaction Status Date / Time No Known Allergies Allergy Verified 07/11/21 12:09 Review of Systems Constitutional: Constitutional: Reports chills, Reports fatigue and Reports weakness Eyes: Eyes: Reports no additional eye complaints ENT: Reports system reviewed and no additional complaints, except as documented Cardiovascular: Cardiovascular: Reports no additional cardiovascular complaints Respiratory: Respiratory: Reports no additional respiratory complaints Gastrointestinal: Gastrointestinal: Reports no additional gastrointestinal complaints Genitourinary: Genitourinary: Reports no additional male genitourinary complaints Musculoskeletal: Musculoskeletal: Reports no additional musculoskeletal complaints Integumentary/Breasts: Skin/Breast: Reports system reviewed and no additional complaints, except as docu Neurologic: Reports as per HPI and Reports confusion Psychiatric: Psychiatric: Reports anxiety Hematologic/Lymphatic: Hematologic/Lymphatic: Reports no additional hematologic/lymphatic complaints Allergic/Immunologic: Allergic/Immunologic: Reports no additional allergic/immunologic complaints [facility] Past Medical History Medical History (Updated 07/11/21 @ 14:44 by Guido Alvarado DO) Diabetes Drug abuse Opioid use disorder Surgical History Surgical History History of back surgery Family History Family History Father Diabetes mellitus Social History Social History Smoking status: Never smoker Substance use: current Substance use type: opiates Gender identity (if verbalized by the patient): Male Exam Const: General: healthy appearing Other: Mild distress HENMT: Other: normocephalic, atrauamtic Eyes: Conjunctivae: conjunctivae normal Pupils: Equal, round and reactive pupils present EOM: EOMs intact bilaterally Neck: Other: normal to inspection Chest: Chest palpation & inspection: normal inspection of the chest Resp: Effort & Inspection: normal respiratory effort Auscultation: clear to auscultation bilaterally Cardio: Rate: regular rate Rhythm: regular rhythm Heart sounds: no murmurs GI: Other: normal inspection, no TTP : Other: No CVA tenderness Skin: General skin exam: normal color Rashes: no rashes Neuro: General: patient oriented x3, moves all extremities and no meningeal signs Speech: normal speech Other: No confusion apparent on exam Extrem: Other: No deformity Psych: Other: Very anxious Course Course Emergency Course: Ordered labs and a dose of alprazolam as well as fluids. Labs were largely unremarkable. EXAMINATION: CT brain wo con DATE: 07/11/2021 13:56 INDICATION: Lethargy, weakness. Blurred vision, sensitivity to light, dizziness
[2021-07-11 12:17] LABS: Glucose Point of Care 156 mg/dl (65-105)
[2021-07-11 12:40] VITALS: BP 156/89; PULSE 94; RESP 16; O2SAT 98
[2021-07-11] MEDS: ALPRAZolam (*CRX) 0.5 MG TABLET PO (12:40)
[2021-07-11 12:51] LABS: Base Excess ABG -1.8 mmol/L (0-2); HCO3 ABG 21.9 mmol/L (23-29); Oxygen Content ABG 20.1 %vol (16.0-22.0); Oxygen Saturation ABG 92.8 % (95-97); Oxyhemoglobin 90.7 % (94-100); PCO2 ABG 34.8 mmHg (35-45); PO2 ABG 64.3 mmHg (80-90); Total Hemoglobin 15.8 g/dL (12.0-18.0); pH ABG 7.42 (7.35-7.45)
[2021-07-11 12:52] LABS: Device ROOM AIR; Modified Allen's Test Pass; Site Drawn LEFT RADIAL
[2021-07-11 12:53] LABS: Basophils Absolute Auto 0.01 K/mm3 (0.00-0.10); Basophils Percent Auto 0.1 % (0.0-1.0); Eosinophils Absolute Auto 0.01 K/mm3 (0.02-0.50); Eosinophils Percent Auto 0.1 % (1.0-6.0); Hemoglobin 14.6 g/dL (14.0-18.0); Immature Granulocyte Absolute 0.05 K/mm3 (0.00-0.00); Immature Granulocyte Percent A 0.5 % (0.0-0.0); Immature Platelet Fraction Pct 1.5 % (1.0-7.0); Lymphocytes Percent Auto 17.3 % (18.0-42.0); Mean Corpuscular HGB Conc 33.2 g/dL (32.0-36.0); Mean Corpuscular Hemoglobin 27.4 pg (27.0-31.0); Mean Corpuscular Volume 82.7 fL (78.0-102.0); Monocytes Absolute Auto 0.44 K/mm3 (0.10-0.90); Monocytes Percent Auto 4.2 % (2.0-11.0); Neutrophils Absolute Auto 8.1 K/mm3 (1.7-7.2); Neutrophils Percent Auto 77.8 % (50.0-70.0); Platelet Count Result 259 K/mm3 (150-420); Red Blood Count 5.32 M/mm3 (4.70-6.10); Red Cell Distribution Width 13.3 % (11.6-14.4); White Blood Count 10.4 K/mm3 (4.8-10.8)
[2021-07-11 13:10] VITALS: BP 159/90; PULSE 90; RESP 16; O2SAT 99
[2021-07-11 13:15] LABS: Alanine Aminotransferase 18 U/L (16-63); Albumin Level 4.5 g/dL (3.4-5.0); Alkaline Phosphatase 143 U/L (46-116); Ammonia 32 umol/L (11-32); Anion Gap 17 mmol/L (8-16); Aspartate Amino Transferase 15 U/L (15-37); Bilirubin,Total 0.6 mg/dL (0.00-1.00); Blood Urea Nitrogen 17 mg/dL (7-18); Calcium 9.4 mg/dL (8.5-10.1); Carbon Dioxide 22 mmol/L (21-32); Chloride 95 mmol/L (98-108); Estimated CRCL calculation 239 ml/min; Estimated Glomerular Filt Rate > 60; Glucose 153 mg/dL (70-99); Lipase 32 U/L (73-393); Magnesium 2.2 mg/dL (1.8-2.4); NT Pro B Type Natriuretic Pept 35 pg/mL (0-125); Osmolality Calculated 282 mOsm/kg (285-295); Phosphorus 2.8 mg/dL (2.6-4.7); Potassium 3.7 mmol/L (3.5-5.1); Sodium 134 mmol/L (136-145); Total Protein 8.7 g/dL (6.4-8.2)
[2021-07-11 13:19] LABS: Ethanol < 3 mg/dL (0-6)
[2021-07-11 13:20] LABS: Thyroid Stimulating Hormone 0.61 uIU/mL (0.36-3.74); Troponin I 5.3 ng/L (0.00-60.4)
[2021-07-11 14:45] VITALS: BP 140/84; PULSE 81; RESP 16; TEMP 36.2; O2SAT 100
== END 2021-07-11 14:50 | disposition home or self-care (01) ==
PROVIDERS: Emergency Provider Family Medicine
DX: F11.23 Opioid dependence with withdrawal (principal); E11.9 Type 2 diabetes mellitus without complications
CPT/HCPCS: 36415; 36600; 70450; 80053; 80307; 82140; 82805; 82948; 83605; 83690; 83735; 83880; 84100; 84443; 84484; 85025; 85055; 99284; A9270

== ENCOUNTER 2021-07-14 20:08 | Emergency (ER) | payer OTHER, MEDICAID, SELFPAY ==
[2021-07-14 20:20] VITALS: PULSE 84; RESP 20; TEMP 36.8; O2SAT 97
[2021-07-14 21:19] LABS: Glucose Point of Care 229 mg/dl (65-105)
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
[2021-07-14 21:42] VITALS: BP 140/100; PULSE 94; RESP 20; TEMP 36.2; O2SAT 98
== END 2021-07-14 21:49 | disposition home or self-care (01) ==
PROVIDERS: Emergency Provider Emergency Medicine
DX: F11.90 Opioid use, unspecified, uncomplicated (principal); E11.9 Type 2 diabetes mellitus without complications
CPT/HCPCS: 82948; 99282

== ENCOUNTER 2021-08-13 17:05 | Emergency (ER) | payer BC, MEDICAID, SELFPAY ==
[2021-08-13 17:20] VITALS: BP 134/79; PULSE 68; RESP 20; TEMP 36.4; O2SAT 96
--- NOTE | 2021-08-13 17:42 | ED.SKABFB ---
HPI - Skin/Abscess/Foreign Bdy General Chief complaint: Skin/Abscess/Foreign Body Stated complaint: feet/leg swelling Time Seen by Provider: 08/13/21 17:19 Source: patient Mode of arrival: ambulatory Limitations: no limitations History of Present Illness HPI narrative: this is a 36-year-old gentleman diabetic currently on insulin and is a drug user and is having lesions on his right lower extremity and arms that there is some mild weeping he has some peripheral edema with no fever chills no shortness of breath there is some warmth and tenderness to the skin lesions with palpation. complaint: abscess/boil Onset (ago): day(s) Tetanus up to date: yes Location: [facility] Severity: moderate Related Data Home Medications Medication Instructions Recorded Confirmed insulin aspart U-100 100 unit/mL 1 unit subcut TID 02/13/19 08/13/21 (3 mL) subcutaneous pen (Novolog Flexpen U-100 Insulin aspart) insulin glargine 100 unit/mL (3 30 unit subcut HS 02/13/19 08/13/21 mL) subcutaneous pen (Lantus Solostar U-100 Insulin) alprazolam 2 mg tablet 2 mg PO PRN 08/27/20 08/13/21 lamotrigine 100 mg tablet 1 tablet PO DAILY 07/14/21 08/13/21 (Lamictal) paroxetine HCl 20 mg tablet 20 tablet PO DAILY 07/14/21 08/13/21 Allergies Allergy/AdvReac Type Severity Reaction Status Date / Time No Known Allergies Allergy Verified 07/11/21 12:09 Review of Systems Review of Systems: All systems reviewed & are unremarkable except as noted in HPI and below PMFSH Past Medical History Medical History (Updated 08/13/21 @ 17:46 by Aung Olmos MD) Diabetes Drug abuse Opioid use disorder Surgical History Surgical History History of back surgery Family History Family History Father Diabetes mellitus Social History Social History Smoking status: Never smoker Substance use: current Substance use type: opiates Gender identity (if verbalized by the patient): Male Exam Const: General: healthy appearing, no acute distress and alert Nutritional Appearance: well nourished Limitations: no limitations HENMT: Head: normal to inspection Face and sinus: normal facial exam Mouth: Yes Normal oral and palatal mucosa present Eyes: Conjunctivae: conjunctivae normal Pupils: Equal, round and reactive pupils present EOM: EOMs intact bilaterally Neck: Neck: normal visual inspection and no meningeal signs Chest: Chest palpation & inspection: normal inspection of the chest Resp: Effort & Inspection: normal respiratory effort Auscultation: clear to auscultation bilaterally Cardio: Rate: regular rate Rhythm: regular rhythm GI: GI Palp: Yes Soft to palpation Auscultation: normal bowel sounds Skin: Other: Has skin lesions right lower extremity some weeping secondary to swelling with warmth and tenderness. Neuro: General: patient oriented x3, moves all extremities, no meningeal signs and no focal motor deficits Extrem: General: normal to inspection, no clubbing, cyanosis or edema and edema Course Course Emergency Course: Patient afebrile has skin lesions secondary to IV drug use and will give a dose of ceftriaxone NSAID medication to his pharmacy. Critical Care Time Critical Care Time Critical Care Time: No Discharge Plan Discharge Clinical Impression: Cellulitis Qualifiers: Site of cellulitis: extremity Site of cellulitis of extremity: lower extremity Laterality: unspecified laterality Qualified Code(s): L03.119 - Cellulitis of unspecified part of limb Abscess of skin or subcutaneous tissue Qualifiers: Site of cutaneous abscess: extremity Site of cutaneous abscess of extremity: lower extremity Laterality: unspecified laterality Qualified Code(s): L02.419 - Cutaneous abscess of limb, unspecified Patient Disposition: Home, Self-Care Co
[2021-08-13] MEDS: cefTRIAXone 1 GM, LIDOCAINE HCL 1% LOCAL INJ 2.1 ML IM (17:50)
--- NOTE | 2021-08-13 18:05 | PC.NURSE ---
PT STATES GOING HOME TO TAKE A SHOWER. SENT HOME DRESSING SUPPLIES TO FOR WEEPING AREAS.
[2021-08-13 18:08] VITALS: BP 134/79; PULSE 68; RESP 20; TEMP 37.1; O2SAT 97
== END 2021-08-13 18:10 | disposition home or self-care (01) ==
PROVIDERS: Emergency Provider Emergency Medicine
DX: L03.115 Cellulitis of right lower limb (principal); L02.415 Cutaneous abscess of right lower limb
CPT/HCPCS: 96372; 99283; J0696

== ENCOUNTER 2021-09-18 13:17 | Emergency (ER) | payer OTHER, SELFPAY ==
[2021-09-18 13:25] VITALS: BP 146/99; PULSE 89; RESP 16; TEMP 36.6; O2SAT 96
[2021-09-18 14:05] LABS: Glucose Point of Care 139 mg/dl (65-105)
--- NOTE | 2021-09-18 14:05 | ED.GENADULT ---
HPI - General Adult General Chief complaint: Extremity Injury, Lower Stated complaint: swelling and pain in both legs History of Present Illness HPI narrative: The patient is a 36-year-old male with a history of intravenous drug abuse for the last several years, uses heroin mixed with fentanyl. He tries to find a vein, and has been advanced. He reports 2 intramuscular injections in the thighs. He has no recent history of injections in the lower extremities below the knees but has had a broken needle in his foot previous to that required removal. He has no broken needles in the legs. Last use was 2 days ago, 09/16/2021, and prior to that was 4 days ago 09/14/2021. He now presents with a 10 day history of swelling in the lower extremities associated with worsening cellulitis. He does have several wounds of the lower extremities but denies shooting up in those areas recently. He had previously been on diuretics, Lasix, but has been out of that medication for some time. His IV access is quite poor. Past medical history is notable for insulin-dependent diabetes, bipolar affective disorder, depression, and back pain. He has hepatitis-C. Intravenous drug abuse. Related Data Home Medications Medication Instructions Recorded Confirmed insulin aspart U-100 100 unit/mL 1 unit subcut TID 02/13/19 09/18/21 (3 mL) subcutaneous pen (Novolog Flexpen U-100 Insulin aspart) insulin glargine 100 unit/mL (3 30 unit subcut HS 02/13/19 09/18/21 mL) subcutaneous pen (Lantus Solostar U-100 Insulin) lamotrigine 100 mg tablet 1 tablet PO DAILY 07/14/21 09/18/21 (Lamictal) paroxetine HCl 20 mg tablet 20 tablet PO DAILY 07/14/21 09/18/21 Allergies Allergy/AdvReac Type Severity Reaction Status Date / Time No Known Allergies Allergy Verified 09/18/21 13:40 Review of Systems Review of Systems: All systems reviewed & are unremarkable except as noted in HPI and below Constitutional: Constitutional: Reports no additional constitutional complaints, Denies anorexia, Denies body ache(s), Denies chills, Denies excessive sweating, Denies fatigue, Denies fever(s), Denies frequent falls, Denies headache(s), Denies malaise and Denies poor appetite Eyes: Eyes: Reports no additional eye complaints, Denies blurry vision, Denies change in vision, Denies irritation, Denies itchy eyes and Denies photophobia ENT: Reports system reviewed and no additional complaints, except as documented, Reports Normal hearing present, Denies change in voice, Denies dysphagia, Denies vertigo, Denies dizziness, Denies ear discharge, Denies headache(s), Denies hearing loss, Denies hoarseness, Denies nasal congestion, Denies neck pain, Denies sinus pressure, Denies sore throat and Denies throat swelling Cardiovascular: Cardiovascular: Reports no additional cardiovascular complaints, Denies chest pain, Denies syncope, Denies rapid heart rate, Denies irregular heart rhythm, Reports leg edema (equal and symmetric bilaterally), Denies dyspnea and Denies slow heart rate Respiratory: Respiratory: Reports no additional respiratory complaints, Denies cough, Denies dyspnea, Denies stridor and Denies wheezing Gastrointestinal: Gastrointestinal: Reports no additional gastrointestinal complaints, Denies abdominal pain, Denies melena, Denies hematochezia, Denies dysphagia, Denies diarrhea, Denies nausea and Denies vomiting Genitourinary: Genitourinary: Denies hematuria, Denies oliguria, Denies dysuria, Denies flank pain, Denies urinary frequency and Denies urinary urgency Musculoskeletal: Musculoskeletal: Reports no additional musculoskeletal complaints, Denies abnormal gait, Denies back pain, Denies myalgias, Denies arthralgias, Denies joint swelling, Denies limited range of motion, Denies muscle cramps, Denies muscle weakness, Denies neck pain and Denies numbness Integumentary/Breasts: Skin/Breast: Reports system reviewed and no additional complaints, except as docu, Denies breast pain,
[2021-09-18] MEDS: SULFAMETHOXAZOLE/TRIMETHOPRIM 800/160 MG DS TABLET 1 TAB PO (14:15)
[2021-09-18] MEDS: FUROSEMIDE 40 MG TABLET 80 MG (14:15)
[2021-09-18] MEDS: ceFAZolin SODIUM 1 GM VIAL 2 GM IM (14:25)
[2021-09-18 15:06] VITALS: BP 135/82; PULSE 79; RESP 18; TEMP 36.4; O2SAT 96
== END 2021-09-18 15:09 | disposition home or self-care (01) ==
PROVIDERS: Emergency Provider Emergency Medicine; PCP Family Medicine
DX: L03.116 Cellulitis of left lower limb (principal); L03.115 Cellulitis of right lower limb; R60.9 Edema, unspecified
CPT/HCPCS: 82948; 96372; 99283; A9270; J0690

== ENCOUNTER 2021-10-05 20:26 | Emergency (ER) | payer OTHER, SELFPAY ==
[2021-10-05] VITALS (18 sets, daily range): BP systolic 133–166; BP diastolic 69–109; PULSE 57–82; RESP 14–32; TEMP 36.7; O2SAT 95–100
--- NOTE | ~2021-10-05 | XR_ITS ---
EXAMINATION: XR chest 1V portable Exam Date/Time: 10/05/2021 20:50 CDT HISTORY: weakness, light-headedness Comparison: 08/17/2017. RESULT: Lines, tubes, and devices: Stimulator leads terminate over the midthoracic spine. Lungs and pleura: Clear. Cardiomediastinal silhouette: Stable. Other: No acute osseous or upper abdominal finding. IMPRESSION: No acute cardiopulmonary process. Reviewed, dictated and finalized at location K.
--- NOTE | 2021-10-05 21:03 | ECG_ITS ---
Measurements Intervals [place] Rate: 67 P: 46 ME: 158 QRS: 17 QRSD: 100 T: 35 QT: 371 QTc: 394 Interpretive Statements SINUS RHYTHM WITH SINUS ARRHYTHMIA BASELINE ARTIFACT ST DEVIATION AND MODERATE T-WAVE ABNORMALITY, CONSIDER LATERAL ISCHEMIA ABNORMAL ECG NO PREVIOUS ECG AVAILABLE FOR COMPARISON Electronically Signed On 10-06-2021 14:58:33 CDT by Joon Lopez M.D.
[2021-10-05 21:08] LABS: Basophils Absolute Auto 0.01 K/mm3 (0.00-0.10); Basophils Percent Auto 0.1 % (0.0-1.0); Hematocrit 44.4 % (40.0-54.0); Hemoglobin 14.6 g/dL (14.0-18.0); Immature Granulocyte Absolute 0.04 K/mm3 (0.00-0.00); Immature Granulocyte Percent A 0.3 % (0.0-0.0); Lymphocytes Absolute Auto 2.48 K/mm3 (1.10-4.50); Lymphocytes Percent Auto 19.7 % (18.0-42.0); Mean Corpuscular HGB Conc 32.9 g/dL (32.0-36.0); Mean Corpuscular Hemoglobin 27.2 pg (27.0-31.0); Mean Corpuscular Volume 82.8 fL (78.0-102.0); Mean Platelet Volume 8.7 fl (8.7-11.0); Monocytes Absolute Auto 0.83 K/mm3 (0.10-0.90); Monocytes Percent Auto 6.6 % (2.0-11.0); Neutrophils Absolute Auto 9.2 K/mm3 (1.7-7.2); Neutrophils Percent Auto 73.3 % (50.0-70.0); Platelet Count Result 386 K/mm3 (150-420); Red Blood Count 5.36 M/mm3 (4.70-6.10); Red Cell Distribution Width 15.2 % (11.6-14.4); White Blood Count 12.6 K/mm3 (4.8-10.8)
--- NOTE | 2021-10-05 21:32 | PC.NURSE ---
Told pts mother that giving psych update about misuse, mother was vehemently against it. stated they didn't want him to know
[2021-10-05 21:35] LABS: Alanine Aminotransferase 14 U/L (16-63); Albumin Level 4.5 g/dL (3.4-5.0); Alkaline Phosphatase 146 U/L (46-116); Anion Gap 12 mmol/L (8-16); Aspartate Amino Transferase 11 U/L (15-37); Bilirubin,Total 0.6 mg/dL (0.00-1.00); Blood Urea Nitrogen 17 mg/dL (7-18); Calcium 9.6 mg/dL (8.5-10.1); Carbon Dioxide 22 mmol/L (21-32); Chloride 99 mmol/L (98-108); Estimated Glomerular Filt Rate > 60; Glucose 203 mg/dL (70-99); Osmolality Calculated 283 mOsm/kg (285-295); Potassium 3.2 mmol/L (3.5-5.1); Sodium 133 mmol/L (136-145); Total Protein 8.9 g/dL (6.4-8.2); Troponin I 6.4 ng/L (0.00-60.4)
[2021-10-05 21:38] LABS: Acetaminophen < 2 ug/mL (10-30); Ethanol < 3 mg/dL (0-6); Thyroid Stimulating Hormone 1.09 uIU/mL (0.36-3.74)
--- NOTE | 2021-10-05 21:51 | PC.NURSE ---
unable to get iv access due to pts scaring. ERP advises push PO fluid
[2021-10-05 21:52] LABS: Lactic Acid Reflex 1.9 mmol/L (0.4-2.0)
--- NOTE | 2021-10-05 22:16 | ED.GENADULT ---
HPI - General Adult General Chief complaint: Unspecified Stated complaint: wh Time Seen by Provider: 10/05/21 20:30 Source: patient, family and RN notes reviewed Mode of arrival: wheelchair Limitations: no limitations History of Present Illness complaint: pt out of Xanax, experiencing withdrawal sxs. Onset (ago): day(s) (1) Severity: moderate Severity scale (1-10): 3 Quality: other (pain-free) Relieving factors: none Exacerbating factors: none Associated symptoms: diaphoresis, nausea/vomiting and weakness Treatments prior to arrival: none Related Data Home Medications Medication Instructions Recorded Confirmed lamotrigine 100 mg tablet 1 tablet PO DAILY 07/14/21 10/05/21 (Lamictal) alprazolam 2 mg tablet 2 mg PO TID PRN anxiety 09/20/21 10/05/21 insulin glargine 100 unit/mL (3 30 unit subcut QHS 09/20/21 10/05/21 mL) subcutaneous pen (Basaglar KwikPen U-100 Insulin) insulin lispro 100 unit/mL 1 sliding scale dose subcut 09/20/21 10/05/21 subcutaneous pen USEASDIRECTD paroxetine HCl 40 mg tablet (Paxil) 40 mg PO DAILY 09/20/21 10/05/21 Allergies Allergy/AdvReac Type Severity Reaction Status Date / Time No Known Allergies Allergy Verified 10/05/21 20:46 Review of Systems Review of Systems: All systems reviewed & are unremarkable except as noted in HPI and below Constitutional: Constitutional: Reports no additional constitutional complaints, Reports chills, Reports excessive sweating, Reports lethargy and Reports poor appetite Eyes: Eyes: Reports no additional eye complaints ENT: Reports system reviewed and no additional complaints, except as documented Cardiovascular: Cardiovascular: Reports no additional cardiovascular complaints Respiratory: Respiratory: Reports no additional respiratory complaints Gastrointestinal: Gastrointestinal: Reports no additional gastrointestinal complaints Musculoskeletal: Musculoskeletal: Reports no additional musculoskeletal complaints Integumentary/Breasts: Skin/Breast: Reports system reviewed and no additional complaints, except as docu Neurologic: Reports system reviewed and no additional complaints, except as documented Psychiatric: Psychiatric: Reports no additional psychiatric complaints Endocrine: Endocrine: Reports no additional endocrine complaints Hematologic/Lymphatic: Hematologic/Lymphatic: Reports no additional hematologic/lymphatic complaints Allergic/Immunologic: Allergic/Immunologic: Reports no additional allergic/immunologic complaints PMFSH Past Medical History Medical History Diabetes Drug abuse Opioid use disorder Surgical History Surgical History History of back surgery Family History Family History Father Diabetes mellitus Social History Social History Smoking status: Current every day smoker Substance use: current Substance use type: opiates Gender identity (if verbalized by the patient): Male Exam Const: General: healthy appearing, no acute distress, diaphoretic, intoxicated appearing and poor hygiene Nutritional Appearance: well nourished Orientation/consciousness: patient oriented x3 Limitations: no limitations HENMT: Head: normal to inspection Ears: external ears normal, TM's normal bilaterally and EAC's normal General nose exam: Normal external nose present and Normal nares present Face and sinus: normal facial exam and sinuses nontender Mouth: Yes Normal oral and palatal mucosa present and Yes moist mucous membranes Teeth and gingiva: dentition normal Throat: posterior oropharynx normal Eyes: Conjunctivae: conjunctivae normal Pupils: Equal, round and reactive pupils present EOM: EOMs intact bilaterally Neck: Neck: normal visual inspection, no lymphadenopathy and no meningeal si
[2021-10-05] MEDS: LORazepam (*CRX) 1 MG TABLET PO (22:23)
[2021-10-05] MEDS: cefTRIAXone 1 GM, LIDOCAINE HCL 1% LOCAL INJ 2.1 ML IM (22:23)
[2021-10-05] MEDS: POTASSIUM CHLORIDE 20 MEQ TABLET 40 MEQ PO (22:23)
== END 2021-10-05 22:49 | disposition home or self-care (01) ==
PROVIDERS: Emergency Provider Emergency Medicine; PCP Family Medicine
DX: F13.20 Sedative, hypnotic or anxiolytic dependence, uncomplicated (principal); E87.6 Hypokalemia; L98.499 Non-pressure chronic ulcer of skin of other sites with unspecified severity
CPT/HCPCS: 36415; 71045; 80053; 80307; 83605; 84443; 84484; 85025; 93005; 96372; 99284; A9270; J0696

== ENCOUNTER 2021-11-13 17:07 | Emergency (ER) | payer OTHER, SELFPAY ==
[2021-11-13 17:21] LABS: Glucose Point of Care 116 mg/dl (65-105)
[2021-11-13 17:28] VITALS: BP 113/86; PULSE 103; RESP 22; O2SAT 100
--- NOTE | 2021-11-13 17:49 | ED.GENADULT ---
HPI - General Adult General Chief complaint: Overdose Stated complaint: withdrawals Source: patient Mode of arrival: ambulatory Limitations: no limitations History of Present Illness HPI narrative: Patient is a 36-year-old opiate addict currently using fentanyl. Was in the clinic 2 days ago and got Suboxone. last tookfentanyl 24 hours ago and then took his Suboxone about 3 or 4 hours ago. Then he went into withdrawal with pain all over and shakiness and nausea. He stated he did not wait long enough after taking the fentanyl to take the Suboxone. Patient is requesting methadone. And Ativan. Related Data Home Medications Medication Instructions Recorded Confirmed lamotrigine 100 mg tablet 1 tablet PO DAILY 07/14/21 10/05/21 (Lamictal) alprazolam 2 mg tablet 2 mg PO TID PRN anxiety 09/20/21 10/05/21 insulin glargine 100 unit/mL (3 30 unit subcut QHS 09/20/21 10/05/21 mL) subcutaneous pen (Basaglar KwikPen U-100 Insulin) insulin lispro 100 unit/mL 1 sliding scale dose subcut 09/20/21 10/05/21 subcutaneous pen USEASDIRECTD paroxetine HCl 40 mg tablet (Paxil) 40 mg PO DAILY 09/20/21 10/05/21 Allergies Allergy/AdvReac Type Severity Reaction Status Date / Time No Known Allergies Allergy Verified 10/24/21 15:26 Review of Systems Review of Systems: ROS unobtainable: Yes unobtainable due to endotracheal tube Constitutional: Constitutional: Reports no additional constitutional complaints Eyes: Eyes: Reports no additional eye complaints ENT: Reports system reviewed and no additional complaints, except as documented Cardiovascular: Cardiovascular: Reports no additional cardiovascular complaints Respiratory: Respiratory: Reports no additional respiratory complaints Gastrointestinal: Gastrointestinal: Reports no additional gastrointestinal complaints Genitourinary: Genitourinary: Reports no additional male genitourinary complaints Musculoskeletal: Musculoskeletal: Reports no additional musculoskeletal complaints Integumentary/Breasts: Skin/Breast: Reports system reviewed and no additional complaints, except as docu Neurologic: Reports system reviewed and no additional complaints, except as documented Psychiatric: Psychiatric: Reports anxiety PMFSH Past Medical History Medical History (Updated 11/13/21 @ 18:34 by Samuel De Los Santos MD) Diabetes Drug abuse Opioid use disorder Surgical History Surgical History History of back surgery Family History Family History Father Diabetes mellitus Social History Social History Smoking status: Current every day smoker Substance use: current Substance use type: opiates Gender identity (if verbalized by the patient): Male Exam Const: Other: White male well-nourished Course Vital Signs Vital signs: Vital Signs Pulse Rate 103 H 11/13/21 17:28 Respiratory Rate 22 H 11/13/21 17:28 Blood Pressure 113/86 11/13/21 17:28 Pulse Oximetry 100 11/13/21 17:28 Oxygen Delivery Room Air 11/13/21 17:28 Pulse Rate 103 H 11/13/21 17:28 Respiratory Rate 22 H 11/13/21 17:28 Blood Pressure 113/86 11/13/21 17:28 Pulse Oximetry 100 11/13/21 17:28 Oxygen Delivery Room Air 11/13/21 17:28 Medical Decision Making Vital Signs Vital Signs: Vital Signs Pulse Rate 103 H 11/13/21 17:28 Respiratory Rate 22 H 11/13/21 17:28 Blood Pressure 113/86 11/13/21 17:28 Pulse Oximetry 100 11/13/21 17:28 Oxygen Delivery Room Air 11/13/21 17:28 Pulse Rate 103 H 11/13/21 17:28 Respiratory Rate 22 H 11/13/21 17:28 Blood Pressure 113/86 11/13/21 17:28 Pulse Oximetry 100 11/13/21 17:28 Oxygen Delivery Room Air 11/13/21 17:28 Lab Data Labs: Lab Results 11/13/21 Range/Units 17:18 POC Capillary Glucose 116 H (65-105)
[2021-11-13] MEDS: cloNIDine HCL 0.1 MG TABLET PO (18:31)
[2021-11-13] MEDS: LORazepam (*CRX) 1 MG TABLET PO (18:31)
[2021-11-13 18:45] VITALS: BP 157/100; PULSE 95; RESP 20; TEMP 36.7; O2SAT 99
== END 2021-11-13 18:48 | disposition home or self-care (01) ==
PROVIDERS: Emergency Provider Emergency Medicine; PCP Family Medicine
DX: F11.23 Opioid dependence with withdrawal (principal)
CPT/HCPCS: 82948; 99283; A9270

== ENCOUNTER 2023-09-17 13:51 | Outpatient (RCR) | payer OTHER, SELFPAY ==
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
--- NOTE | 2023-09-17 14:49 | OPREHPOC ---
Outpatient Therapy Plan of Care This is a Multidisciplinary Plan of Care that may contain components documented by all disciplines (PT, OT, and ST.) PT Problem 1 PT Problem #1 Knowledge Deficit PT Goal 1 Goal Pt. will be independent with a HEP addressing strength and mobility. PT Problem 2 PT Problem #2 Pain PT Goal 1 Goal Pt. will report pain levels at 5/10 at worst with prolonged standing activities. Target Visit 12 PT Problem 3 PT Problem #3 Impaired Strength PT Goal 1 Goal Pt. will present with 4+/5 gross left l.e. strength Pt. will present with good upper and lower abdominal strength in order to improve postural awareness and stability in standing. Target Visit 12 PT Problem 4 PT Problem #4 Impaired Gait PT Goal 1 Goal Pt. will be able to ambulate with equal right and left stance time with 100% accuracy for 6 minute duration over a distance of 800' or greater. Target Visit 12 PT Problem 5 PT Problem #5 Impaired Functional Mobil PT Goal 1 Goal Pt. will be able to stand for duration of 30 minutes without rest due to pain in order to attain improved ability to complete at home tasks. Target Visit 12
--- NOTE | 2023-09-19 07:12 | PCPTNOTE ---
Cancelled session today. Cannot make it. Scheduled for Sunday.
--- NOTE | 2023-11-02 08:37 | PCPTNOTE ---
Patient cancelled session. Waiting to reschedule until he talks to his doctor.
== END 2023-12-16 23:59 | disposition home or self-care (01) ==
LOC: CHSPT 13:51
DX: M54.50 Low back pain, unspecified (principal)
CPT/HCPCS: 97110; 97161

== ENCOUNTER 2024-01-09 12:22 | Outpatient (CLI) | payer OTHER, SELFPAY ==
--- NOTE | ~2024-01-09 | XR_ITS ---
EXAMINATION: XR shoulder RT min 2V DATE: 01/09/2024 12:37 INDICATION: Right shoulder pain and limited range of motion TECHNIQUE: AP internally and externally rotated, AP oblique externally rotated and transscapular Y vi ews of the right shoulder were obtained. COMPARISON: None FINDINGS: Normal alignment. No fracture. Glenohumeral joint is normal. Acromioclavicular joint is normal. Smal l sclerotic bone island at the apex of the humeral head. Soft tissues are unremarkable. Visualized po rtion of the right lung are clear. Spinal stimulator lead with distal tip projecting over the central canal at the level of T6-T7. IMPRESSION: Negative right shoulder radiographs. Reviewed, dictated and finalized at location A. GN/ANIMATION INSTRUCTOR
== END 2024-01-09 12:23 | disposition home or self-care (01) ==
LOC: CHSIMG 12:25
PROVIDERS: PCP Nurse Practitioner Family; Visit Provider Nurse Practitioner Family
DX: M25.511 Pain in right shoulder (principal)
CPT/HCPCS: 73030

== ENCOUNTER 2024-02-03 19:15 | Emergency (ER) | payer OTHER, SELFPAY ==
[2024-02-03 19:18] VITALS: BP 132/85; PULSE 103; RESP 20; TEMP 36.9; O2SAT 97
--- NOTE | 2024-02-03 19:19 | PC.NURSE ---
Bs of 81 upon arrival
--- NOTE | 2024-02-03 19:27 | PC.NURSE ---
Pt ambulated to bathroom with standby assist
--- NOTE | 2024-02-03 19:32 | ED_ITS ---
HPI - Recheck/Abnormal Lab/Rx General Chief Complaint: Recheck/Abnormal Lab/Rx Stated Complaint: low blood sugar Time Seen by Provider: 02/03/24 19:31 Source: patient Mode of arrival: ambulatory Limitations: no limitations History of Present Illness HPI narrative: Patient is a 38-year-old male with significant past medical history presents today with hypoglycemia. Patient had low blood sugars he checks blood sugar Homar went down to 20. He felt really out of it and confused and the family was worried and brought to the emergency department. They gave him some candy bars and subsequently sugar home and by the time he got to the emergency department his sugars 81. Went to the emergency department we also gave him some juice and some more food to kidney new bring up the sugar and will do a recheck of that lab go home. complaint: other ( Hypoglycemia) Initial visit (ago): hour(s) Initial visit for: other ( hypoglycemia) Symptoms since prior visit: no new symptoms Context: called for abnormal lab result Associated symptoms: malaise Treatments prior to arrival: other ( candy bar and juice) Related Data Home Medications ?Medication ?Instructions ?Recorded ?Confirmed ?Last Taken ?Type lamotrigine 100 mg tablet 1 tablet PO DAILY 07/14/21 10/05/21 Unknown History (Lamictal) alprazolam 2 mg tablet 2 mg PO TID PRN anxiety 09/20/21 10/05/21 Unknown History insulin glargine 100 unit/mL (3 30 unit subcut QHS 09/20/21 10/05/21 Unknown History mL) subcutaneous pen (Basaglar KwikPen U-100 Insulin) insulin lispro 100 unit/mL 1 sliding scale dose subcut 09/20/21 10/05/21 Unknown History subcutaneous pen USEASDIRECTD paroxetine HCl 40 mg tablet (Paxil) 40 mg PO DAILY 09/20/21 10/05/21 Unknown History Allergies Allergy/AdvReac Type Severity Reaction Status Date / Time No Known Allergies Allergy Verified 10/24/21 15:26 Review of Systems Review of Systems: All systems reviewed & are unremarkable except as noted in HPI and below Constitutional: Constitutional: Reports as per HPI Eyes: Eyes: Reports no additional eye complaints ENT: Reports system reviewed and no additional complaints, except as documented Cardiovascular: Cardiovascular: Reports no additional cardiovascular complaints Respiratory: Respiratory: Reports no additional respiratory complaints Gastrointestinal: Gastrointestinal: Reports no additional gastrointestinal complaints Genitourinary: Genitourinary: Reports no additional male genitourinary complaints Musculoskeletal: Musculoskeletal: Reports no additional musculoskeletal complaints Integumentary/Breasts: Skin/Breast: Reports system reviewed and no additional complaints, except as docu Neurologic: Reports as per HPI, Reports confusion and Reports dizziness Psychiatric: Psychiatric: Reports no additional psychiatric complaints Endocrine: Endocrine: Reports no additional endocrine complaints Hematologic/Lymphatic: Hematologic/Lymphatic: Reports no additional hematologic/lymphatic complaints Allergic/Immunologic: Allergic/Immunologic: Reports no additional allergic/immunologic complaints [facility] Past Medical History Medical History (Updated 02/03/24 @ 20:02 by Rich Samuel MD) Opioid use disorder Drug abuse Diabetes Surgical History Surgical History History of back surgery Family History Family History Father Diabetes mellitus Social History Social History Smoking status: Current every day smoker Substance use: current Substance use type: opiates Gender identity (if verbalized by the patient): Male Exam Const: General: healthy appearing Nutritional Appearance: well nourished Orientation/consciousness: patient oriented x3 HENMT: Head: normal to inspection Ears: external ears normal Face/Nose/Sinus: Normal external nose present Face and sinus: normal facial exam Mouth: Yes Normal oral and palatal mucosa present Teeth and gingiva: dentition normal Eyes: Conjunctivae: conjunctivae normal Pupils: Equal, round and reactive pupils present EOM: EOMs intact bilaterally Neck: Neck: normal visual inspection Chest: Chest palpation & inspection: normal inspection of the chest Resp: Effort & Inspection: normal respiratory effort Auscultation: clear to auscultation bilaterally Cardio: Rate: regular rate Rhythm: regular rhythm GI: GI Palp: Yes Soft to palpation Auscultation: normal bowel sounds Back/Spine/Pelvis: Back: no CVA tenderness Skin: General skin exam: normal color Rashes: no rashes Wounds: no wounds Neuro: General: patient oriented x3 Cranial nerves: Yes Nystagmus not present Speech: normal speech Extrem: General: normal to inspection Psych: Mental Status: mental status grossly normal Affect: normal affect Attitude: cooperative Course Vital Signs Vital signs: Vital Signs Temperature 98.4 F 02/03/24 19:18 Pulse Rate 103 H 02/03/24 19:18 Respiratory Rate 20 02/03/24 19:18 Blood Pressure 132/85 02/03/24 19:18 Pulse Oximetry 97 02/03/24 19:18 Oxygen Delivery Room Air 02/03/24 19:18 Temperature 98.4 F 02/03/24 19:18 Pulse Rate 103 H 02/03/24 19:18 Respiratory Rate 20 02/03/24 19:18 Blood Pressure 132/85 02/03/24 19:18 Pulse Oximetry 97 02/03/24 19:18 Oxygen Delivery Room Air 02/03/24 19:18 MDM - Recheck/Abnormal Lab/Rx MDM Narrative Medical decision making narrative: patient hyperglycemia because he took too much of his lispro and then in that being a smaller meal waiting to be a larger male night. This would in him into a hypoglycemic state. His sugars dropped times 20. He was already given a bunch of candy bars and juices the way here and was feeling better on the way here and recheck was 80 when he got here. Will still give him some more fluid and some juice and some food to bring this up a little bit higher stays in a good spot and do a recheck after the rechecking go home. Differential Diagnosis Differential diagnosis: Likely other ( Hyperglycemia) Medical Records Attestation: I reviewed the patient's medical records. Lab Data Attestation: I reviewed the patient's lab results. Discharge Plan Discharge Clinical Impression: Hypoglycemia Patient Disposition: Home, Self-Care Condition: Stable Instructions: Hypoglycemia in Adolescents with Diabetes (ED) Patient Language: Luxembourger Prescriptions: No Action alprazolam 1 mg tablet 1 mg PO BID Qty: 6 0RF clonidine HCl 0.1 mg tablet 0.1 mg PO Q12H PRN (Reason: withdrawal symptoms) Qty: 14 0RF lamotrigine [Lamictal] 100 mg tablet 1 tablet PO DAILY paroxetine HCl [Paxil] 40 mg tablet 40 mg PO DAILY alprazolam 2 mg tablet 2 mg PO TID PRN (Reason: anxiety) insulin lispro 100 unit/mL insulin pen 1 sliding scale dose subcut USEASDIRECTD insulin glargine [Basaglar KwikPen U-100 Insulin] 100 unit/mL (3 mL) insulin pen 30 unit subcut QHS furosemide [Lasix] 40 mg tablet 40 mg PO BID 30 Days Qty: 60 0RF doxycycline monohydrate 100 mg capsule 100 mg PO BID Qty: 20 0RF Follow-up/Referrals: UNKNOWN,DOCTOR [Primary Care Provider] - Time of Disposition: 19:38
[2024-02-03 20:03] LABS: Glucose Point of Care 107 mg/dl (65-105)
[2024-02-03 20:07] VITALS: BP 124/84; PULSE 81; RESP 18; O2SAT 99
== END 2024-02-03 20:07 | disposition home or self-care (01) ==
PROVIDERS: Emergency Provider Family Medicine
DX: E11.649 Type 2 diabetes mellitus with hypoglycemia without coma (principal); Z79.4 Long term (current) use of insulin; F17.200 Nicotine dependence, unspecified, uncomplicated
CPT/HCPCS: 82948; 99282

== ENCOUNTER 2024-03-20 12:30 | Emergency (ER) | payer OTHER, SELFPAY ==
--- NOTE | ~2024-03-20 | XR_ITS ---
XR ankle LT min 3V 03/20/2024 12:55 INDICATION: Left ankle pain PROCEDURE: 4 views left ankle COMPARISON: 03/20/2024 FINDINGS: Fracture, dislocation or subluxation is not identified. Ankle mortise intact. The soft tiss ues appear within normal limits. No foreign bodies are identified. IMPRESSION: 1: NO ACUTE BONE OR JOINT ABNORMALITY IDENTIFIED. Reviewed, dictated and finalized at location B. TRUCTION STONEMASON
--- NOTE | ~2024-03-20 | XR_ITS ---
EXAMINATION: XR foot LT min 3V DATE: 03/20/2024 12:55 INDICATION: Left foot and ankle injury. TECHNIQUE: 4 views of left foot were obtained. COMPARISON: None. FINDINGS: Alignment is normal. No fracture. There is mild osteoarthritis of first metatarsophalangeal joint. There is an enthesophyte of posterior aspect of calcaneal tuberosity. IMPRESSION: 1. No fracture. Reviewed, dictated and finalized at location A. GEMENT SUPERVISOR IMPRESSION: 1. No fracture.
[2024-03-20 12:30] VITALS: BP 148/85; PULSE 110; RESP 17; TEMP 36.9; O2SAT 98
--- OUTSIDE RECORDS SUMMARY | 2024-03-20 12:33 | XMS_ITS | Encounter Summary ---
Author Organization [facility] Address [address] [place] [address] Care Team Providers Care Manager Land Name Role Phone Austin Bae NP Primary Care Provider + Yulisa Estrada RN Unavailable Margie vailable Trina Aguirre RN Unavailable Unavailab Trina Veras RN Unavailable Unavailab le Aretha, Physician Primary Care Provider [phone] Austin Bea PLATEN PRESS OPERATOR APPRENTICE Primary Care Provider + No, Physician Primary Care Provider [phone] Josseline Giraldo Unavailable Unavailable Larry Headley MD Primary Care Provider [phone] Tere Conklin Primary Care Provider [phone] Parish Mcfarland MD Unavailable Encounter Details Date Type Department Care Team (Late st Contact Info) Description 08/19/2018 Telephone [facility] [address] [place] [address] Trina Aguirre RN Social History Tobacco Use Types Packs/Day Years Used Date Smoking Tobacco: Every Day Cigarettes Smokeless Tobacco: Never Alcohol Use Standard Drinks/Week Comments No 0 (1 standard drink = 0.6 oz pur e alcohol) Sex and Gender Information Value Date Recorded Sex Assigned at Not on file Legal 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[employer] Gender Identity Not on file Sexual Orientation Not on file documented as of this encounter Plan of Treatment Not on file documented as of this encounter Visit Diagnoses Not on filedocumented in this encounter Additional Health Concerns Infection Onset Date Last Indicated Resolved Time COVID: Suspected 04/08/2023 04/08/2023 04/08/2023 8:23 PM SOFTWARE [employer] Influenza, adult 04/08/2023 04/08/2023 04/15/2023 3:05 AM SOFTWARE [employer] documented as of this encounter Care Teams Manager Land Relationship Specialty Start Date End Date Austin Bae NP [address] [place] [address] [address] [place] [address] PCP - General 06/06/17 10/14/18 No, Physician PCP - General 10/15/18 10/15/18 Austin Bae NP [address] [place] [address] [address] [place] [address] PCP - General 10/16/18 10/16/18 No, Physician PCP - General 10/17/18 06/13/21 Larry Headley MD [address] [place] [address] [address] [place] [address] PCP - General Endocrinology 06/14/21 12/07/21 Tere Conklin PA [address] [place] [id number] PCP - General Emergency Medicine 12/08/21 Yulisa Estrada, SANAZ Registered Nurse 12/10/17 Trina Aguirre, RN Registered Nurse 07/01/18 Trina Aguirre, RN Registered Nurse 09/17/18 Josseline Giraldo Casting Associate Addiction Medicine 02/03/20 Parish Mcfarland MD [address] [place] [address] [address] [place] [address] Consulting Physician Pulmonary Disease 04/11/23 documented as of this encounter
--- OUTSIDE RECORDS SUMMARY | 2024-03-20 12:33 | XMS_ITS | Clinical Summary ---
Author Organization [facility] Address [address] [place] [address] Phone Care Team Providers Care Sales Engineer Account Manager Name Role Phone Unavailable Unavailable Unavailable Reason for Visit and Chief Complaint PAIN MANAGEMENT NEW CONSULT Plan of Treatment No Plan of Treatment Recorded Assessments Includes: Assessments from this encounter No Assessments Recorded Medical Equipment - Implanted Devices Includes: Current Devices No Medical Equipment Recorded Medications Includes: Medications discussed during this encounter and other current Medications Current Medications (continue as prescribed) lamoTRIgine 100 MG Oral Tablet 04/24/2019 Provider: Diagnosis: Last Documented On 0 3:17PM By Louise SANDOVAL ; [facility] clonazePAM 2 MG Oral Tablet 04/24/2019 Provider: Diagnosis: Last Documented On 0 3:17PM By Louise SANDOVAL ; [facility] traZODone HCl 100 MG Oral Tablet 04/24/2019 Provider : Diagnosis: Last Documented On 0 3:17PM By Louise SANDOVAL ; [facility] Gabapentin 600 MG Oral Tablet 04/24/2019 Provider: Diagnosis: Last Documented On 0 3:54PM By Louise SANDOVAL ; [facility] Narcan 4 MG/0.1ML Nasal Liquid 04/24/2019 Provider: TIANNA SMITH Diagnosis: as directed Last Documented On 0 4:26PM By TIANNA SMITH ; [facility] Gabapentin 100 MG Oral Capsule 04/24/2019 Provider: TIANNA SMITH Diagnosis: Spinal stenosis, lumbar region with neurogenic claudication 2 po TIDto be taken with cur rent dose Last Documented On 0 4:26PM By TIANNA SMITH ; [facility] Medications Administered Includes: Administered Medications from this encounter No Administered Medications Recorded Results Includes: Results discussed during this encounter No Results Recorded For Specified Dates History of Present Illness Includes: History of Present Illness from this encounter No History of Present Illness Recorded Social History No Social History Recorded - Smoking Status Unknown Medical History Includes: Medical History addressed during this encounter No Medical History Recorded Family History Includes: Family History addressed during this encounter No Family History Recorded Review of Systems Includes: Review of Systems from this encounter No Review of Systems Recorded Mental Status Includes: Mental Status from this encounter No Mental Status Recorded Functional Status Includes: Functional Status from this encounter No Functional Status Recorded Physical Exam Includes: Physical Exam from this encounter No Physical Exam Recorded Allergies Includes: Active Allergies No Known Allergies Insurance Includes: Active Insurance Policies Plan Name Member ID Group # Subscriber Relationship Effect aviva Dates 1 - [place] [employer] [facility] [id number] HIEN Chavez 2 - MEDICAID [facility] [id number] HIEN Chavez Clinical Notes Includes: Clinical Notes from this encounter No Clinical Notes Recorded
--- OUTSIDE RECORDS SUMMARY | 2024-03-20 12:33 | XMS_ITS | Data Portability ---
Author Organization [facility] Address [address] [place] [address] Assessment Encounter Date Assessment Date Assessment LastModified by Organization Details LastModified Time 12/20/2023 12/20/2023 Mr. Castillo is 38-year-old male presents to [facility]. 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 Diagnosed with drug-induced schizophrenia. Complains of chronic constipation, bilateral shoulder pain (worse on the right, radiating down the arm), and memory issues. 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 States his diabetes is managed, with a recent A1c of 7. Additionally, he reports erectile dysfunction (ED) for 3 years, sleep disturbances, and requests referrals to neurology, gastroenterolo gy, urology, and pulmonology. Not available 01/12/2024 16:51:40 Plan of Treatment Reminders Order Date Submit Date Provider Last Modified By Organization Details Last Modified Time Details Appointments None recorded. Lab CMP, serum or plasma 2017 018 [facility], [address] [facility], [facility] [address], [address], 8 16:32:23 CBC 2017 018 [facility], [address] [facility], [facility] 2, [place], [address], 8 16:32:24 lipid panel, serum 2017 018 [facility], [address] [facility], [place], [address], 8 16:32:24 TSH, ultra-sen sitive, serum 2017 018 [facility], [address] [facility], [facility] 2, [place], [address], 8 16:32:23 HbA1c (hemoglob in A1c), blood 2017 018 [facility], [address] [place] [address], [facility] 2, [place], [address], 8 16:32:23 lipid panel, serum 2023 024 [facility], [address] [place] [address], [facility] 2, [place], [address], 4 07:16:24 CBC w/ auto diff 2023 024 [facility], [address] [place] [address], [facility] 2, [place], [address], 4 07:16:27 CMP, serum or plasma 2023 024 [facility], [address] [place] [address] 2, [place], [address], 4 07:16:26 Referral pain managemen t referral - L5-S1 mild to moderate disc protrusio n. Patient has been seen by multiple pain managemen t doctors would like to see about pain pump. 2017 018 [email or web address] Mert Garcia, [address], [address], [place], [address], 9 16:13:27 physical therapist referral 2017 018 [facility] Not available 8 14:20:[address] referral 2023 024 matthew Jerome MD, [address], [place], [address], 5 10:41:46 urologist referral 2023 024 matthew [facility], 2 [facility], [address], [place], [address], 5 11:35:09 pulmonolo gist referral - sleep study 2023 024 matthew Huffman MD, 1 [facility], Third Floor, [place], [address], 5 11:37:12 Procedures None recorded. Surgeries None recorded. Imaging MRI, lumbar spine, w/o contrast - Chronic low back pain, for several years. 2017 018 [facility], [address] [place] [address], [place], [address], 8 19:07:40 XR, shoulder, 2 or more view 2023 024 [facility]), [address] [place], [address], 5 14:16:51 Medication Orders ranitidin e 300 mg tablet 2017 018 [facility], [address] [place] [address], [address], 4 14:15:38 lisinopri l 10 mg tablet 2017 018 [facility] [address] [place] [address], [address], 4 14:14:26 losartan 50 mg tablet 2023 024 [facility], [address], [place], [id number], 4 12:31:53 famotidin e 20 mg tablet 2023 024 [facility] [address], [id number], 4 11:20:37 Patient TargetsNo targets recorded. Patient Instructions Encounter Date Encounter Id Patient Instructions Last Modified By Organization Details Last Modified Time 04/27/[id number] pulmonary function test* [facility] Not available 04/27/2017 16:57:49 Apply heat for 20-30 minutes several times a day. NSAIDs reduce pain and inflammation and promote healing. You should take these with food to avoid upset stomach. Avoid sitting if possible, unless it feels better than standing. Alternate lying down with short walks. Increase your walking distance as you are able to without making your symptoms worse. Do not do anything that makes your symptoms worse. Call your doctor now or seek immediate medical care if: You have new or worse symptoms in your legs or buttocks. Symptoms may include: Numbness or tingling. Weakness. Pain. You lose bladder or bowel control. Avoid laying flat until 2 hours after meals. Elevate head of bed, including entire chest. Reduce size of meals and amount of fat, acid, spices, caffeine and sweets. Avoid tobacco and alcohol use. Lose weight if indicated. Avoid stooping, bending after meals and tight fitting clothing. Maintain a healthy weight. Avoid smoking. Participate in regular aerobic exercise (at least 30 minutes 4 days a week) Take medications as prescribed. Follow the DASH diet. Restrict sodium (less than 2000mg per day) Try to manage stress. Restrict alcohol consumption Not available 04/27/2017 16:31:13 Complete MRI, PF T when possible. Sign records release so we can get EKG report. f/u 1 month. Not available 04/27/2017 16:31:50 10/03/2017 [id number] When You Want to Lose Weight: Care Instructions Not available 10/03/2017 14:14:56 herniated disc: care instructions Not available 10/03/2017 12:11:48 learning about polypharmacy Not available 10/03/2017 14:14:56 Apply heat for 20-30 minutes several times a day. NSAIDs reduce pain and inflammation and promote healing. You should take these with food to avoid upset stomach. Avoid sitting if possible, unless it feels better than standing. Alternate lying down with short walks. Increase your walking distance as you are able to without making your symptoms worse. Do not do anything that makes your symptoms worse. Call your doctor now or seek immediate medical care if: You have new or worse symptoms in your legs or buttocks. Symptoms may include: Numbness or tingling. Weakness. Pain. You lose bladder or bowel control. Not available 10/03/2017 14:14:34 We discussed at length the heavy medications that patient is on. He understands he is at a high risk for overdose/overseda tion and potentially . This is one of the reasons he is looking to receive a pain pump and to get off of some of his narcotics. We discussed at length that his weight is going to contribute to his low back pain. Patient would like to start exercising, we discussed water aerobics and other low impact exercise may be best to prevent worsening of his back pain. Also, diet is a major component in losing some weight. Not available 10/03/2017 14:14:10 10/09/2017 [id number] Maintain a healthy weight. Avoid smoking. Participate in regular aerobic exercise (at least 30 minutes 4 days a week) Take medications as prescribed. Follow the DASH diet. Restrict sodium (less than 2000mg per day) Try to manage stress. Restrict alcohol consumption Follow a well balanced diet using the USDA food guide pyramid. Start an exercise regimen that includes aerobic exercise for at least 30 minutes, 4 times a week. Do not severly restrict your diet. Healthy weight loss is 1-2 pounds per week. Not available 10/09/2017 15:48:15 f/u 2 months. Not available 15:48:23 12/20/2023 [id number] Quitting Tobacco : Care Instructions Not available 12/20/2023 14:54:02 A healthy lifestyle: care instructions Not available 12/20/2023 14:54:02 - limit/avoid consumption of processed foods. choose a diet rich in fruits, and vegetables, low fat, low carbs. - Eat less salt (sodium) - exercise for at least 30 minutes a day on most days of the week - Limit the amount of caffeine and alcohol you drink - work on obtaining and maintaining a healthy weight Not available 01/12/2024 16:41:17 - Always present to ER or Urgent Care with any progression of/alarming symptoms, significant changes in symptoms or any concerning or urgent matters Not available 12/20/2023 14:28:38 Reason for Referral Pain Management Referral for Displacement of lumbar intervertebral disc without myelopathy L5-S1 mild to moderate disc protrusion. Patient has been seen by multiple pain management doctors would like to see about pain pump. Referring Physician: Austin Bae [facility], Encounter Date: 10/03/2017 Physical Therapist Referral for Displacement of lumbar intervertebral disc without myelopathy Referring Physician: Austin Bae [facility], Encounter Date: 10/03/2017 Fan Balancer Referral for S leep pattern disturbance sleep study Referring Physician: Brigida Alexandre [facility], Encounter Date: 12/20/2023 Neurologist Referral for Mem ory impairment Referring Physician: Brigida Alexandre [facility], Encounter Date: 12/20/2023 Urologist Referral for Erect ile dysfunction Referring Physician: Brigida Alexandre [facility], Encounter Date: 12/20/2023 Results Created Date Observation Date Name Description Value Unit Range Abnormal Flag Note LastModifiedBy Organization Detail LastModifiedTime 01/17/2001/18/2024 LIPID PANEL cholesterol, total 220 mg/dL 100-19 9 above high normal Not Available [facility] ([facility]) [address] [place], [address], 01/18/2024 07:16:24 01/17/2001/18/2024 LIPID PANEL triglyceride s 336 mg/dL 0-149 above high normal Not Available [facility] ([facility]) [address] [facility], [place], [address], 01/18/2024 07:16:24 12/05/20 24 01/18/2024 LIPID PANEL HDL cholesterol 41 mg/dL >39 Not Available [facility] ([facility]) [address] [facility] [place], [address], 01/18/2024 07:16:24 01/17/20 24 01/18/2024 LIPID PANEL VLDL cholesterol zully 59 mg/dL 5-40 above high normal Not Available [facility] ([facility]) [address] [place], [address], 01/18/2024 07:16:24 01/17/20 24 01/18/2024 LIPID PANEL LDL chol calc ([facility]) 120 mg/dL 0-99 above high normal Not Available [facility] ([facility]) [address] [place], [address], 01/18/2024 07:16:24 01/17/20 24 01/18/2024 COMP. METAB OLIC PANEL (14) glucose 47 mg/dL 70-99 below low normal Not Available [facility] ([facility]) [address] [place], [address], 01/18/2024 07:16:25 01/17/20 24 01/18/2024 COMP. METAB OLIC PANEL (14) BUN 13 mg/dL 6-20 Not Available [facility] ([facility]) [address] [place], [address], 01/18/2024 07:16:25 01/17/20 24 01/18/2024 COMP. METAB OLIC PANEL (14) creatinine 0.81 mg/dL 0.76-1 .27 Not Available [facility] ([facility]) [address] [place], [address], 01/18/2024 07:16:25 01/17/20 24 01/18/2024 COMP. METAB OLIC PANEL (14) eGFR 116 mL/mi n/1.7 3 >59 Not Available [facility] ([facility]) [address] [place], [address], 01/18/2024 07:16:25 01/17/20 24 01/18/2024 COMP. METAB OLIC PANEL (14) BUN/creatini ne ratio 16 9-20 Not Available [facility] ([facility]) [address] [facility], [place], [address], 01/18/2024 07:16:25 01/17/20 24 01/18/2024 COMP. METAB OLIC PANEL (14) sodium 140 mmol/ L 134-14 4 Not Available [facility] ([facility]) [address] [place], [address], 01/18/2024 07:16:25 01/17/20 24 01/18/2024 COMP. METAB OLIC PANEL (14) potassium 4.3 mmol/ L 3.5-5. 2 Not Available [facility] ([facility]) [address] [place], [address], 01/18/2024 07:16:25 01/17/20 24 01/18/2024 COMP. METAB OLIC PANEL (14) chloride 103 mmol/ L 96-106 Not Available [facility] ([facility]) [address] [place], [address], 01/18/2024 07:16:25 01/17/20 24 01/18/2024 COMP. METAB OLIC PANEL (14) carbon dioxide, total 22 mmol/ L 20-29 Not Available [facility] ([facility]) [address] [place], [address], 01/18/2024 07:16:25 01/17/20 24 01/18/2024 COMP. METAB OLIC PANEL (14) calcium 9.6 mg/dL 8.7-10 .2 Not Available [facility] ([facility]) [address] [place], [address], 01/18/2024 07:16:25 01/17/20 24 01/18/2024 COMP. METAB OLIC PANEL (14) protein, total 7.9 g/dL 6.0-8. 5 Not Available [facility] ([facility]) [address] [facility] [place], [address], 01/18/2024 07:16:25 01/17/20 24 01/18/2024 COMP. METAB OLIC PANEL (14) albumin 4.7 g/dL 4.1-5. 1 Not Available [facility] ([facility]) [address] [facility] [place], [address], 01/18/2024 07:16:25 01/17/20 24 01/18/2024 COMP. METAB OLIC PANEL (14) globulin, total 3.2 g/dL 1.5-4. 5 Not Available [facility] ([facility]) [address] [facility] [place], [address], 01/18/2024 07:16:25 01/17/20 24 01/18/2024 COMP. METAB OLIC PANEL (14) bilirubin, total 0.3 mg/dL 0.0-1. 2 Not Available [facility] ([facility]) [address] [facility] [place], [address], 01/18/2024 07:16:25 01/17/20 24 01/18/2024 COMP. METAB OLIC PANEL (14) alkaline phosphatase 187 IU/L 44-121 above high normal Not Available [facility] ([facility]) [address] [facility] [place], [address], 01/18/2024 07:16:25 01/17/20 24 01/18/2024 COMP. METAB OLIC PANEL (14) AST (SGOT) 24 IU/L 0-40 Not Available [facility] ([facility]) [address] [facility], [address], 01/18/2024 07:16:25 01/17/20 24 01/18/2024 COMP. METAB OLIC PANEL (14) ALT (SGPT) 31 IU/L 0-44 Not Available [facility] ([facility]) [address] [facility], [place], [address], 01/18/2024 07:16:25 01/17/20 24 01/18/2024 CBC WITH DIFFE RENTI AL/PL ATELE T WBC 7.2 x10e3 /uL 3.4-10 .8 Not Available [facility] ([facility]) [address] [facility], [place], [address], 01/18/2024 07:16:27 01/17/20 24 01/18/2024 CBC WITH DIFFE RENTI AL/PL ATELE T RBC 5.29 x10e6 /uL 4.14-5 .80 Not Available [facility] ([facility]) [address] [facility], [place], [address], 01/18/2024 07:16:27 01/17/20 24 01/18/2024 CBC WITH DIFFE RENTI AL/PL ATELE T hemoglobin 14.9 g/dL 13.0-1 7.7 Not Available [facility] ([facility]) [address] [place], [address], 01/18/2024 07:16:27 01/17/20 24 01/18/2024 CBC WITH DIFFE RENTI AL/PL ATELE T hematocrit 46.5 % 37.5-5 1.0 Not Available [facility] ([facility]) [address] [place], [address], 01/18/2024 07:16:27 01/17/20 24 01/18/2024 CBC WITH DIFFE RENTI AL/PL ATELE T MCV 88 fL 79-97 Not Available [facility] ([facility]) [address] [place], [address], 01/18/2024 07:16:27 01/17/20 24 01/18/2024 CBC WITH DIFFE RENTI AL/PL ATELE T MCH 28.2 pg 26.6-3 3.0 Not Available [facility] ([facility]) [address] [facility], [place], [address], 01/18/2024 07:16:27 01/17/20 24 01/18/2024 CBC WITH DIFFE RENTI AL/PL ATELE T MCHC 32.0 g/dL 31.5-3 5.7 Not Available [facility] ([facility]) [address] [facility], [place], [address], 01/18/2024 07:16:27 01/17/20 24 01/18/2024 CBC WITH DIFFE RENTI AL/PL ATELE T RDW 13.8 % 11.6-1 5.4 Not Available [facility] ([facility]) [address] [facility], [place], [address], 01/18/2024 07:16:27 01/17/20 24 01/18/2024 CBC WITH DIFFE RENTI AL/PL ATELE T platelets 258 x10e3 /uL 150-45 0 Not Available [facility] ([facility]) [address] [facility], [place], [address], 01/18/2024 07:16:27 01/17/20 24 01/18/2024 CBC WITH DIFFE RENTI AL/PL ATELE T neutrophils 69 % notest ab. Not Available [facility] ([facility]) [address] [facility], [place], [address], 01/18/2024 07:16:27 01/17/20 24 01/18/2024 CBC WITH DIFFE RENTI AL/PL ATELE T lymphs 25 % notest ab. Not Available [facility] ([facility]) [address] [place], [address], 01/18/2024 07:16:27 01/17/20 24 01/18/2024 CBC WITH DIFFE RENTI AL/PL ATELE T monocytes 5 % notest ab. Not Available [facility] ([facility]) [address] [facility], [place], [address], 01/18/2024 07:16:27 01/17/20 24 01/18/2024 CBC WITH DIFFE RENTI AL/PL ATELE T eos 1 % notest ab. Not Available [facility] ([facility]) [address] [facility], [place], [address], 01/18/2024 07:16:27 01/17/20 24 01/18/2024 CBC WITH DIFFE RENTI AL/PL ATELE T basos 0 % notest ab. Not Available [facility] ([facility]) [address] [facility], [place], [address], 01/18/2024 07:16:27 01/17/20 24 01/18/2024 CBC WITH DIFFE RENTI AL/PL ATELE T neutrophils (absolute) 4.9 x10e3 /uL 1.4-7. 0 Not Available [facility] ([facility]) [address] [facility], [place], [address], 01/18/2024 07:16:27 01/17/20 24 01/18/2024 CBC WITH DIFFE RENTI AL/PL ATELE T lymphs (absolute) 1.8 x10e3 /uL 0.7-3. 1 Not Available [facility] ([facility]) [address] [facility], [place], [address], 01/18/2024 07:16:27 01/17/20 24 01/18/2024 CBC WITH DIFFE RENTI AL/PL ATELE T monocytes(ab solute) 0.4 x10e3 /uL 0.1-0. 9 Not Available [facility] ([facility]) [address] [facility], [place], [address], 01/18/2024 07:16:27 01/17/20 24 01/18/2024 CBC WITH DIFFE RENTI AL/PL ATELE T eos (absolute) 0.1 x10e3 /uL 0.0-0. 4 Not Available [facility] ([facility]) [address] [facility], [place], [address], 01/18/2024 07:16:27 01/17/20 24 01/18/2024 CBC WITH DIFFE RENTI AL/PL ATELE T baso (absolute) 0.0 x10e3 /uL 0.0-0. 2 Not Available [facility] ([facility]) [address] [facility], [place], [address], 01/18/2024 07:16:27 01/17/20 24 01/18/2024 CBC WITH DIFFE RENTI AL/PL ATELE T immature granulocytes 0 % notest ab. Not Available [facility] ([facility]) [address] [facility], [place], [address], 01/18/2024 07:16:27 01/17/20 24 01/18/2024 CBC WITH DIFFE RENTI AL/PL ATELE T immature grans (abs) 0.0 x10e3 /uL 0.0-0. 1 Not Available [facility] ([facility]) [address] [facility], [place], [address], 01/18/2024 07:16:27 06/16/19 18 06/15/2017 MRI, lumba r spine , w/o contr ast No observ ation record ed. [facility] [address] [facility] , [place], [address], 06/21/2017 13:57:00 Result Notes None recorded. Problems Name Problem SNOMED Code Status Onset Date Resolution Date Notes Provider Name and Address Organization Details Recorded Time Acid reflux 334444419 Active 2017 BRIGIDA ALEXANDRE NP Attn: Live joel,[address] [facility], [place], [address] [place] [address] SI 4 14:26:14 Depressive disorder 06170984 Active 2017 BRIGIDA ALEXANDRE NP Attn: Live joel,[address] [facility], [place], [address], [place] - [facility] 4 14:26:11 Headache 03544927 Active 2017 Shaneka Tariq [place] null, [place] - [facility] 8 16:00:41 Bipolar disorder 80899822 Active 2017 BRIGIDA ALEXANDRE NP Attn: Live joel,[address] [facility], [place], [address], [place] [facility] 4 14:26:06 At increased risk of polypharmac y 550025248 Active 2017 AUSTIN BAE NP Attn: Live g,[address] [facility], [place], [address], [place] [facility] 8 14:12:50 Essential hypertensio n 68214727 Active 2017 BRIGIDA ALEXANDRE NP Attn: Mahadeleuterio joel,[address] [facility], [place], [address], [place] [facility] 4 14:26:04 Obesity 655052277 Active 2023 BRIGIDA ALEXANDRE NP Attn: Live marycruz,[address] [facility], [place], [address], [place] [facility] 4 16:39:57 Pain of right shoulder joint 8302984971287 9100 Active 2023 BRIGIDA ALEXANDRE NP Attn: Live g,[address] [facility], [place], [address], [place] [facility] 4 16:39:36 Type 2 diabetes mellitus 94721076 Active 2023 BRIGIDA ALEXANDRE NP Attn: Live g,[address] [facility], [place], [address], [place] [facility] 4 14:35:13 Smoker 44055856 Active 2023 BRIGIDA ALEXANDRE NP Attn: Live g,[address] [facility], [place], [address], [place] [facility] 4 14:35:15 Chronic low back pain 791726862 Active 2023 BRIGIDA ALEXANDRE NP Attn: Live marycruz,[address] [facility], [place], [place], [address] [place] [address] 2, [place] - [facility] 4 16:39:36 Uncontrolle d type 2 diabetes mellitus 882106863 Active 2023 BRIGIDA ALEXANDRE NP Attn: Mahadeleuterio joel,[address] [facility], [place], [address], [place] - [facility] 4 16:39:50 Sleep pattern disturbance 29232803 Active 2023 BRIGIDA ALEXANDRE NP Attn: Mahadeleuterio joel,[address] [place], [place], [address] [place] [address] 2, [place] - [facility] 4 16:39:36 Gastroesoph ageal reflux disease without esophagitis 825880658 Active 2023 BRIGIDA ALEXANDRE NP Attn: Live marycruz,[address] [facility], [place], [address], [place] - [facility] 4 16:39:36 Intravenous drug user 298264422 Active 2023 BRIGIDA ALEXANDRE NP Attn: Mahadeleuterio joel,[address] [facility], [place], [address], [place] - [facility] 4 16:44:45 Memory impairment 591357498 Active 2023 BRIGIDA ALEXANDRE NP Attn: Live marycruz,[address] [facility], [place], [address], [place] - [facility] 4 16:48:03 Erectile dysfunction 566557310 Active 2023 BRIGIDA ALEXANDRE NP Attn: Live marycruz,[address] [facility], [place], [address], [place] - [facility] 4 16:49:30 Problem Notes None recorded. Procedures Surgical History Date Name Laterality Status Provider Name and Address Organization Details Recorded Time Back Surgery completed Shaneka Tariq MA [facility] 04/27/2017 15:58:09 Foot single axis ankle/foot completed Liegh Quezada LPN [place] - [facility] 12/20/2023 14:20:46 Imaging Results Imaging Date Name Status LastModified by Organiz ation Details LastModified Time 06/15/2017 MRI, lumbar spine, w/o contrast [address] [place], [address], 06/21/2017 13:57:00 Procedure Notes None recorded. Medical Equipment None Reported. Allergies No known drug allergies Medications Name Sig Start Date Stop Date Status Note LastModified by Organization Details LastModified Time losartan 50 mg tablet TAKE ONE TABLET BY MOUTH DAILY NEEDS TO RESCEDUL E [facility]POINT[facility] 2024 active Not Available Not Available Not Avai lable cyclobenza karrie 10 mg tablet 12/19 completed Not Available Not Available Not Available atorvastat in 40 mg tablet active Not Available Not Available Not Available gabapentin 600 mg tablet 1 PO TID 12/19 completed Not Available Not Available Not Available clindamyci n HCl 300 mg capsule 12/19 completed Not Available Not Available Not Available trazodone 50 mg tablet 1-2 PO QHS 12/19 completed Not Available Not Available Not Available azithromyc in 250 mg tablet 04/27 completed Not Available Not Available Not Available Lidocaine Viscous 2 % mucosal solution 04/27 completed Not Available Not Available Not Available tizanidine 4 mg tablet active Not Available Not Available Not Available ranitidine 300 mg tablet Take 1 tablet every day by oral route. 12/19 completed 1 PO Qd Not Available Not Available Not Available ondansetro n HCl 8 mg tablet take 1 tablet by oral route every 8 hours for 2 days active Not Available Not Available No t Available meloxicam 15 mg tablet 12/19 completed states dos not help Not Available Not Available Not Available sucralfate 1 gram tablet 04/27 completed Not Available Not Available Not Available metronidaz ole 250 mg tablet 12/19 completed Not Available Not Available Not Available clonazepam 1 mg tablet 12/19 completed Not Available Not Available Not Available clindamyci n HCl 150 mg capsule 3 q 6 hrs active Not Available Not Available No t Available acetaminop hen 300 mg-codeine 30 mg tablet 12/19 completed Not Available Not Available Not Available sulfametho xazole 800 mg-trimeth oprim 160 mg tablet 12/19 completed Not Available Not Available Not Available hydrocodon e 10 mg-acetami nophen 325 mg tablet 1 PO TID 12/19 completed Not Available Not Available Not Available baclofen 20 mg tablet 12/19 completed Not Available Not Available Not Available famotidine 20 mg tablet Take 1 tablet twice a day by oral route for 30 days. 2023 active Not Available Not Available Not Avai lable gabapentin 800 mg tablet Take 1 tablet 3 times a day by oral route for 30 days. active Not Available Not Available No t Available hydrocodon e 7.5 mg-acetami nophen 325 mg tablet 12/19 completed Not Available Not Available Not Available cephalexin 500 mg capsule 12/19 completed Not Available Not Available Not Available paroxetine 30 mg tablet active Not Available Not Available Not Available paroxetine 20 mg tablet take 1 tablet by oral route every day active Not Available Not Available No t Available oseltamivi r 75 mg capsule 12/19 completed Not Available Not Available Not Available lisinopril 10 mg tablet Take 1 tablet every day by oral route. 12/19 completed Not Available Not Available Not Available losartan 25 mg tablet 12/19 completed Not Available Not Available Not Available docusate sodium 100 mg capsule active Not Available Not Available N ot Available gabapentin 300 mg capsule TAKE ONE CAPSULE BY MOUTH EVERY MORNING AND EVERY AFTERNOO N AND TAKE THREE CAPSULES AT BEDTIME 12/19 completed Not Available Not Available Not Available folic acid 1 mg tablet 1 PO QD 12/[address] Escamilla Not Available Not Available Not Available alprazolam 2 mg tablet take 1 tablet by oral route 3 times every day active Not Available Not Available No t Available ergocalcif dann (vitamin D2) 1,250 mcg (50,000 unit) capsule 1 PO once a WK 12/19 completed Not Available Not Available Not Available diazepam 10 mg tablet 1 PO TID as needed 12/19 completed Not Available Not Available Not Available levofloxac in 500 mg tablet 12/19 completed Not Available Not Available Not Available oxycodone- acetaminop hen 7.5 mg-325 mg tablet 12/19 completed Not Available Not Available Not Available levofloxac in 750 mg tablet 12/19 completed Not Available Not Available Not Available zolpidem 10 mg tablet take 1 tablet by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
--- OUTSIDE RECORDS SUMMARY | 2024-03-20 12:33 | XMS_ITS | Encounter Summary ---
Author Organization [facility] Healthcare Address [address] [place] [address] Care Team Providers Care Med Surg Rn Name Role Phone Austin Bae NP Primary Care Provider + Yulisa Estrada RN Unavailable Margie vailable Trina Aguirre RN Unavailable Unavailab Trina Veras RN Unavailable Unavailab le Aretha, Physician Primary Care Provider [phone] Austin Bae PUBLIC SCHOOL TEACHER Primary Care Provider + No, Physician Primary Care Provider [phone] Josseline Giraldo Unavailable Unavailable Larry Headley MD Primary Care Provider [phone] Tere Conklin Primary Care Provider [phone] Parish Mcfarland MD Unavailable Encounter Details Date Type Department Care Team (Late st Contact Info) Description 08/19/2018 Telephone [facility] [address] [place] [address] Trina Aguirre RN Social History Tobacco Use Types Packs/Day Years Used Date Smoking Tobacco: Every Day Cigarettes Smokeless Tobacco: Never Alcohol Use Standard Drinks/Week Comments No 0 (1 standard drink = 0.6 oz pur e alcohol) Sex and Gender Information Value Date Recorded Sex Assigned at Not on file 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 Gender Identity Not on file Sexual Orientation Not on file documented as of this encounter Plan of Treatment Not on file documented as of this encounter Visit Diagnoses Not on filedocumented in this encounter Additional Health Concerns Infection Onset Date Last Indicated Resolved Time COVID: Suspected 04/08/2023 04/08/2023 04/08/2023 8:23 PM 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 OPERATOR Influenza, adult 04/08/2023 04/08/2023 04/15/2023 3:05 AM 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 OPERATOR documented as of this encounter Care Teams Med Surg Rn Relationship Specialty Start Date End Date Austin Bae NP [address] [place] [address] [address] [place] [address] PCP - General 06/06/17 10/14/18 No, Physician PCP - General 10/15/18 10/15/18 Austin Bae NP [address] [place] [address] [address] [place] [address] PCP - General 10/16/18 10/16/18 No, Physician PCP - General 10/17/18 06/13/21 Larry Headley MD [address] [place] [address] [address] [place] [address] PCP - General Endocrinology 06/14/21 12/07/21 Tere Conklin PA [address] [place] [address] PCP - General Emergency Medicine 12/08/21 Yulisa Estrada, SANAZ Registered Nurse 12/10/17 Trina Aguirre, RN Registered Nurse 07/01/18 Trina Aguirre, RN Registered Nurse 09/17/18 Josseline Giraldo Logging Shovel Operator Addiction Medicine 02/03/20 Parish Mcfarland MD [address] [place] [address] [address] [place] [address] Consulting Physician Pulmonary Disease 04/11/23 documented as of this encounter
--- OUTSIDE RECORDS SUMMARY | 2024-03-20 12:33 | XMS_ITS | Continuity of Care Document ---
Author Organization [facility] Address [address] [place] [address] Phone Care Team Providers Care Salvage Supervisor Name Role Phone Adi Pierson MD Unavailable Unavailable Allergies, Adverse Reactions, Alerts Substance Reaction Status Criticality No Known Allergies Active No Inform ation Medications Medication Instructions Dosage Effective Dates (start - stop) Status Comments Dilaudid 4 mg tablet take 1 tablet by or al route every 4 - 6 hours as needed 4 MG - Active omeprazole 20 mg capsule,delayed release take 1 capsule by oral route every day 30 minutes to 1 hour before a meal 20 MG - Active Advance Directives Directive Yes / No Effective Date File Name No Information Encounters Encounter Description Practice Location Reason(s) For Visit Diagnoses Date Provider Providers Copied on Encounter [facility], [address], [place], [place], [id number] , tel: [phone] [facility] No Information 6 Dangelo Joshi. [address] [place] [address], [facility] [address] , [place], [place], [id number] , . tel: [phone] Referring Provider: Adi Pierson, [address] [place] [address] [address] , [place], [address] . tel:[phone] [employer] [facility] [employer] [facility], [address], [place], [place], [id number] , tel: [phone] [facility] Nausea and vomitingHepatitis C 5 Matthew Sanchez. [address], [facility] [address], [place], [address], . tel: [phone] Referring Provider: Daniel Castro, [address], [place], [address]. tel:[phone] Family History Family Member Type Diagnosis Age At Onset No Information Payers Payer name Insurance type Covered constitution party ID Authoriza titabitha(s) BCBS INACTIVE OUT OF STATE [id number] [place] [facility] [id number] Social History Type Description Quantity Date Captured Comments Sex Male Smoking Status No Information Chief Complaint And Reason For Visit No Information Reason For Referral Reason For Referral No Information History Of Present Illness Encounter Date Complaint History Of Prese nt Illness No Information Functional Status Date Functional Assessmen t No Information Instructions Date Instruction Additional Infor mation No Information Assessments Type Assessment Date No Information Patient Care Teams Name Effective Dates (start - stop) Status Members No Information
--- OUTSIDE RECORDS SUMMARY | 2024-03-20 12:33 | XMS_ITS | Clinical Summary ---
Author Organization [facility] Address [address] [place] [address] Phone Care Team Providers Care Form Setter Metal Road Forms Name Role Phone Unavailable Unavailable Unavailable Reason for Visit and Chief Complaint PAIN MANAGEMENT FOLLOW UP Plan of Treatment No Plan of Treatment Recorded Assessments Includes: Assessments from this encounter No Assessments Recorded Medical Equipment - Implanted Devices Includes: Current Devices No Medical Equipment Recorded Medications Includes: Medications discussed during this encounter and other current Medications Current Medications (continue as prescribed) lamoTRIgine 100 MG Oral Tablet 04/24/2019 Provider: Diagnosis: Last Documented On 0 3:17PM By Louise SANDOVAL ; [facility] clonazePAM 2 MG Oral Tablet 04/24/2019 Provider: Diagnosis: Last Documented On 0 3:17PM By Louise SANDOVAL ; [facility] traZODone HCl 100 MG Oral Tablet 04/24/2019 Provider : Diagnosis: Last Documented On 0 3:17PM By Louise SANDOVAL ; [facility] Gabapentin 600 MG Oral Tablet 04/24/2019 Provider: Diagnosis: Last Documented On 0 3:54PM By Louise SANDOVAL ; [facility] Narcan 4 MG/0.1ML Nasal Liquid 04/24/2019 Provider: TIANNA SMITH Diagnosis: as directed Last Documented On 0 4:26PM By TIANNA SMITH ; [facility] Gabapentin 100 MG Oral Capsule 04/24/2019 Provider: TIANNA SMITH Diagnosis: Spinal stenosis, lumbar region with neurogenic claudication 2 po TIDto be taken with cur rent dose Last Documented On 0 4:26PM By TIANNA SMITH ; [facility] Medications Administered Includes: Administered Medications [...] Subscriber Relationship Effect aviva Dates 1 - [employer] [facility] [id number] HIEN Chavez 2 - MEDICAID [facility] [id number] HIEN Chavez Clinical Notes Includes: Clinical Notes from this encounter No Clinical Notes Recorded
--- OUTSIDE RECORDS SUMMARY | 2024-03-20 12:33 | XMS_ITS | Continuity of Care Document ---
Author Organization [facility] Address [address] [place] [address] Phone Care Team Providers Care Electric Golf Cart Repairer Name Role Phone Gerardo Allred MD Unavailable Unavailable Allergies, Adverse Reactions, Alerts Substance Reaction Status Criticality No Known Allergies Active No Inform ation Medications Medication Instructions Dosage Effective Dates (start - stop) Status Comments lisinopril-hydroc hlorothiazide 20 mg-25 mg tablet take 1 tablet by oral route every day 1.00 tablet - Active Percocet 10 mg-325 mg tablet take 1 tablet by oral route 3 times every day as needed 1 tablet - Active avoid drivin g or operate machines Procedures Procedure Date OFFICE/OUTPATIENT VISIT, EST Advance Directives Directive Yes / No Effective Date File Name No Information Encounters Encounter Description Practice Location Reason(s) For Visit Diagnoses Date Provider Providers Copied on Encounter OFFICE/OUTPA TIENT VISIT, EST [facility], [address] [place], [place], [id number], tel:[phone] [facility] back pain (chief complaint) foot pain (chief complaint) Dietary surveillance and counselingHypertens ion, UnspecifiedLumbagoP ain in joint involving lower leg 2 Chalino Carrillo. [address] [place], [place], [address] , [place]. tel:[phone] Referring Provider: Gerardo Allred [address] [place], [place], [id number]. tel:[phone] Family History Family Member Type Diagnosis Age At Onset Father Problem (finding) Diabetes mellitus Mother Problem (finding) Alive and well Payers Payer name Insurance type Covered libertarian ID Farheen [place](s) No Information Social History Type Description Quantity Date Captured Comments Alcohol Use Details No Caffeine Use Details Unknown Tobacco Use Status No Information Smoking Status Current every day smoker Non-Smoking Tobacco Use Details Smokeless: No Details Available Smokeless: No Details Available Sex Male Vital Signs Date / Time: Height Weight BMI Pulse Rate Blood Pressure Temperature Respiratory Rate Body Surface Area Head Circumference BMI percentile Pulse Ox Inhaled Ox 3:02 PM 75.00 in 203.50 lbs 25.4 3 kg/m eter (2) 88 /min 150/100 mm[Hg] 98.6 F 16 /min Chief Complaint And Reason For Visit From encounter dated 11/30/2011 13:30'. back pain (chief complaint) foot pain (chief complaint) Plan Of Treatment Date Type Action Status Goal Tobacco cessation counseling completed Referral Ordered: FOOT XRAY, TWO VIEW Left foot ordered History Of Present Illness Encounter Date Complaint History Of Prese nt Illness No Information Instructions Date Instruction Additional Infor mation Dietary counseling Related to Di etary surveillance counseling Decrease caloric intake Related to Dietary surveillance counseling Assessments Type Assessment Date No Information Mental Status Date Cognitive Assessment Orientation - [place] ed to time, place, person, situation.
--- OUTSIDE RECORDS SUMMARY | 2024-03-20 12:34 | XMS_ITS | Encounter Summary ---
Author Organization [facility] Healthcare Address [address] [place] [address] Care Team Providers Care Glaze Supervisor Name Role Phone Yulisa Estrada RN Unavailable Margie vailaTrina Mcclain RN Unavailable Unavailab Trina Veras RN Unavailable Unavailab le No, Physician Primary Care Provider [phone] Josseline Giraldo Unavailable Unavailable Larry Headley MD Primary Care Provider [phone] Tere Conklin Primary Care Provider [phone] Parish Mcfarland MD Unavailable Encounter Details Date Type Department Care Team (Late st Contact Info) Description 03/03/2019 Telephone [facility] [address] [place] [address] Trina Aguirre RN Social History Tobacco Use Types Packs/Day Years Used Date Smoking Tobacco: Every Day Cigarettes Smokeless Tobacco: Never Comments:5-6 cig per day Alcohol Use Standard Drinks/Week Comments No 0 (1 standard drink = 0.6 oz pur e alcohol) PHQ-2 Answer Date Recorded PHQ-2 Score 0 10/02/2018 Sex and Gender Information Value Date Recorded Sex Assigned at Not on file Legal Sex Male 1:12 PM SOUND SYSTEM INSTALLER Gender Identity Not on file Sexual Orientation Not on file documented as of this encounter Plan of Treatment Not on file documented as of this encounter Visit Diagnoses Not on filedocumented in this encounter Additional Health Concerns Infection Onset Date Last Indicated Resolved Time COVID: Suspected 04/08/2023 04/08/2023 04/08/2023 8:23 PM SOUND SYSTEM INSTALLER Influenza, adult 04/08/2023 04/08/2023 04/15/2023 3:05 AM SOUND SYSTEM INSTALLER documented as of this encounter Care Teams Glaze Supervisor Relationship Specialty Start Date End Date No, Physician PCP - General 10/17/18 06/13/21 Larry Headley MD [address] [place] [address] [address] [place] [address] PCP - General Endocrinology 06/14/21 12/07/21 Tere Conklin PA [address] [place] [address] PCP - General Emergency Medicine 12/08/21 Yulisa Estrada RN Registered Nurse 12/10/17 Trina Aguirre, RN Registered Nurse 07/01/18 Trina Aguirre, RN Registered Nurse 09/17/18 Josseline Giraldo Soccer Commentator Addiction Medicine 02/03/20 Parish Mcfarland MD [address] [place] [address] [address] [place] [address] Consulting Physician Pulmonary Disease 04/11/23 documented as of this encounter
--- OUTSIDE RECORDS SUMMARY | 2024-03-20 12:34 | XMS_ITS | Clinical Summary ---
Author Organization [facility] Address [address] [place] [address] Phone Care Team Providers Care Car Hop Name Role Phone Brigida Morton APRN, MARIA Primary Care Provider Rich Gaston APRN, CNP Unavailable Allergies No known active allergies Medications ALPRAZolam 2 MG Tablet 07/04/19 20 Active atorvastatin (LIPITOR) 20 MG Tablet Take 20 mg by mouth. 08/07/19 21 Active docusate sodium (COLACE) 100 MG Capsule 12/25/19 24 Active famotidine (PEPCID) 20 MG Tablet 12/24/19 24 Active gabapentin (NEURONTIN) 800 MG Tablet 01/11/20 24 Active Insulin Lispro, 1 Unit Dial, 100 UNIT/ML Solution Pen-injector 11/27/19 24 Active Jardiance 25 MG Tablet 12/20/19 24 Active losartan (COZAAR) 50 MG Tablet 12/24/19 24 Active methadone (DOLOPHINE) 10 MG/ML Concentrate Take by mouth. Active ondansetron (ZOFRAN) 8 MG Tablet 01/07/20 24 Active PARoxetine (PAXIL) 20 MG Tablet 07/04/19 20 Active tiZANidine (ZANAFLEX) 4 MG Tablet 12/24/19 24 Active Trulicity 3 MG/0.5ML Solution Auto-injector INJECT 3 MG SUBCUTANEOUS WEEKLY 12/17/19 24 Active zolpidem (AMBIEN) 10 MG Tablet 11/24/19 21 Active insulin glargine (LANTUS) 100 UNIT/ML Solution 30 Units by Subcutaneous route nightly. Active Tadalafil 5 MG TabletIndications :Erectile dysfunction due to arterial insufficiency Take 1 Tablet by mouth daily as needed for Erectile Dysfunction (Take 5 mg daily. May take 1-3 (5-15 mg) tablets as needed for ED. Do not exceed more than 20 mg in 24 hours). 90 Tablet 02/25/19 25 Active Active Problems Problem Noted Date Diagnosed Date Somatic symptom disorder, pe rsistent, severe, with predominant pain 12/24/2017 Bipolar disorder 12/24/2017 Chronic pain syndrome 12/24/2017 Encounters Date Type Department Care Team Description 02/26/2024 3:15 PM NITRATE OPERATOR Office Visit [facility] [address] [place] [address] Rich Gaston, ANDREA, PERSONALIZED LIVING ASSISTANT Erectile dysfunction due to arterial insufficiency (Primary Dx) Discharge Disposition: Discharged to home or Selfcare 02/26/2024 Travel from Last 3 Months Social History Tobacco Use Types Packs/Day Years Used Date Smoking Tobacco: Every Day Cigarettes Smokeless Tobacco: Never Tobacco Cessation:Ready to Q uit: Not Asked; Counseling Given: Not Answered Alcohol Use Standard Drinks/Week Comments Not Currently 0 (1 standard drink = 0.6 oz pur e alcohol) Sex and Gender Information Value Date Recorded Sex Assigned at Not on file Legal Sex Male 1:30 PM CDT Gender Identity Not on file Sexual Orientation Not on file Last Filed Vital Signs Vital Sign Reading Time Taken Comments Blood Pressure 112/74 02/26/2024 3:15 PM NITRATE OPERATOR Pulse 77 02/26/2024 3:15 PM NITRATE OPERATOR Temperature - - Respiratory Rate 20 02/26/2024 3:15 PM NITRATE OPERATOR Oxygen Saturation 96% 02/26/2024 3:15 PM NITRATE OPERATOR Inhaled Oxygen Concentration - - Weight 129.4 kg (285 lb 3.2 oz) 02/26/2024 3:15 PM NITRATE OPERATOR Height 190.5 cm (6' 3 ) 02/26/2024 3:15 PM NITRATE OPERATOR Body Mass Index 35.65 02/26/2024 3:15 PM NITRATE OPERATOR Plan of Treatment Upcoming Encounters Date Type Department Care Team (Late st Contact Info) Description 04/07/2024 1:30 PM NITRATE OPERATOR Office Visit [facility] - Pulmonology & [facility] Medicine [facility] [address] [place] [address] Jacky Huffman MD [address] [facility] [place] [address] 04/28/2024 11:15 AM CDT Office Visit [facility] [address] [place] [address] Rich Gaston, TRIM CARPENTER, PERSONALIZED LIVING ASSISTANT [address] [place] [address] 05/15/2024 2:00 PM CDT Office Visit [facility] - Neurology [facility] [address] [place] [address] Miguel Jerome MD [address] [place] [address] Health Maintenance Due Date Last Done Comments TdaP Immunization 1986 Pneumococcal Immunization Combined (2 of 2 - PCV) 11/21/2014 11/21/2013 Influenza Immunization (#1) 2023 02/23/2015, 1 SARS-COV-2 Immunization (3 - season) 2023 07/10/2020, 06/12/2020 Respiratory Syncytial Virus (RSV) Immunization (Adult) (1 - 1-dose 75+ series) 2061 Hepatitis B Immunization Completed 997, 06/16/1996, 05/19/1996 DTaP/Tdap/Td Immunization Discontinued 2001, 06/17/1991, 02/17/1988, Additional history exists Hepatitis C Virus (HCV) Screening Completed 08/21/2022, 10/26/2015 Meningococcal Immunization (ACWY) Aged Out No longer eligible based on patient's age to complete this topic Rotavirus Immunization Aged Out No lo nger eligible based on patient's age to complete this topic Procedures Procedure Name Priority Date/Time Associated Diagnosis Comments HEPATITIS PANEL ACUTE (AHP) Routine 08/21/2022 10:21 AM CDT Opioid type dependence, continuous (HCC) from Last 3 Months or Most Recently Relevant to Health Maintenance Results * (ABNORMAL) HEPATITIS PANEL ACUTE (AHP) (08/21/2022 10:21 AM CDT) HEPATITIS A IGM ANTIBODY NON DETECTED NON DETECTED [facility] [id number] B 08/22/2022 1:46 AM CDT [facility] Comment: IGM Antibodies to HAV not detected. Does not exclude early acute or recovered HAV infection. HEP B CORE AB (IGM) NON DETECTED NON DETECTED [facility] [id number] B 08/22/2022 1:46 AM CDT [facility] Comment:IGM anti-HBC not det ected. Does not exclude the possibility of exposure to or infection with HBV. HEPATITIS B SURFACE ANTIGEN NON DETECTED NON DETECTED [facility] [id number] B 08/22/2022 1:46 AM CDT [facility] Comment:A nonreactive test r esult does not exclude the possibility of exposure to or infection with Hepatitis B virus. A nonreactive test result in individuals with prior exposure to hepatitis B may be due to antigen levels below the detection limit of this assay or lack of antigen reactivity to the antibodies in this assay. hepatitis C antibody 6.76(H) <1 S/CO [facility] [id number] B 08/22/2022 1:46 AM CDT [facility] Comment: Signal/Cutoff ratio < 0.79 is Nondetected Signal/Cutoff ratio 0.80-0.99 is Grayzone Signal/Cutoff ratio > 0.99 is Detected Supplemental assays are recommended if signal/cutoff ratio is >/=1.00. Signal/cutoff ratio result >/= 5.00 is 97% predictive of positivity for recombinant immunoblot assay (RIBA) and will be reported to the [place] Department of Public Health as required. Result faxed to the [facility] Blood Venipuncture / Unknown 08/21/2022 10:21 AM CDT 08/21/2022 11:23 AM CDT us Valdez Echols MD HEMATOLOGY ORDERABLES Final Res ult [facility] [address] [place] [address], [place] from Last 3 Months or Most Recently Relevant to Health Maintenance Insurance MEDICAID [facility] Care Teams Car Hop Relationship Specialty Start Date End Date Brigida Morton APRN, PERSONALIZED LIVING ASSISTANT [address] [place] [address] PCP - General Advanced Practice Nurse 01/17/24 Rich Gaston APRN, MARIA [address] [place] [address] Nurse Practitioner Advanced Practice Nurse 02/20/24
--- OUTSIDE RECORDS SUMMARY | 2024-03-20 12:34 | XMS_ITS | Encounter Summary ---
Author Organization [facility] Address [address] [place] [address] Care Team Providers Care Senior Application Programmer Name Role Phone None, Provider Primary Care Provider Unavaila ble Encounter Details Date Type Department Care Team (Late st Contact Info) Description 07/20/2018 Abstract [facility] CONVERSION [address] [place] [address] , Generic Conversion, Social History Tobacco Use Types Packs/Day Years Used Date Smoking Tobacco: Never Assessed Sex and Gender Information Value Date Recorded Sex Assigned at Not on file Legal Sex Male 9:04 PM CDT Gender Identity Not on file Sexual Orientation Not on file documented as of this encounter Plan of Treatment Not on file documented as of this encounter Visit Diagnoses Not on filedocumented in this encounter Care Teams Senior Application Programmer Relationship Specialty Start Date End Date None, ProviderMD PCP - General 06/24/20 documented as of this encounter
--- OUTSIDE RECORDS SUMMARY | 2024-03-20 12:34 | XMS_ITS | Clinical Summary ---
Author Organization [facility] Address [address] [place] [address] Care Team Providers Care Hydrologic Engineer Name Role Phone None, Provider MD Primary Care Provider Unavaila ble Allergies No known active allergies Medications insulin aspart 100 UNIT/ML injection (VIAL) Inject into the skin 3 (three) times daily before meals. Active insulin glargine 100 UNIT/ML injection (VIAL) Inject 30 Units into the skin nightly at bedtime. Active ALPRAZolam 2 MG tablet Take 2 mg by mouth 3 (three) times daily as needed. Active traZODone 100 MG tablet Take 100 mg by mouth nightly at bedtime. Active PARoxetine 40 MG tablet Take 40 mg by mouth every morning. Active lamoTRIgine ER 100 MG TABLET SR 24 HR 24 hr tablet Take 25 mg by mouth daily. Active methadone 10 MG/ML Conc CONCENTRATED solution Take by mouth daily. 100mg solution per patient Active Social History Tobacco Use Types Packs/Day Years Used Date Smoking Tobacco: Every Day Cigarettes 0.5 10 Smokeless Tobacco: Never Alcohol Use Standard Drinks/Week Comments Not Currently 0 (1 standard drink = 0.6 oz pur e alcohol) Sex and Gender Information Value Date Recorded Sex Assigned at Not on file Legal Sex Male 9:04 PM CDT Gender Identity Not on file Sexual Orientation Not on file Last Filed Vital Signs Vital Sign Reading Time Taken Comments Blood Pressure 114/60 06/24/2020 1:15 PM CDT Pulse 60 06/24/2020 1:15 PM CDT Temperature 37.2 C (98.9 F) 06/24/2020 11:02 AM CDT Respiratory Rate 18 06/24/2020 11:02 AM CDT Oxygen Saturation 97% 06/24/2020 1:15 PM CDT Inhaled Oxygen Concentration - - Weight 124.7 kg (275 lb) 06/24/2020 11:02 AM CDT Height 190.5 cm (6' 3 ) 06/24/2020 11:02 AM CDT Body Mass Index 34.37 06/24/2020 11:02 AM CDT Plan of Treatment Health Maintenance Due Date Last Done Comments Annual Physical 1989 Pneumococcal Vaccine: Pediatrics (0 to 5 Years) and At-Risk Patients (6 to 64 Years) (1 of 2 - PCV) 1992 Hepatitis C 2004 DTaP, Tdap and Td Vaccines (1 - Tdap) 2005 06/17/1991, 02/17/1988, 02/28/1987, Additional history exists Hepatitis B Vaccines (1 of 3 - 19+ 3-dose series) 2005 COVID-19 Vaccine ( season) 2023 06/12/2020 Influenza Adult (#1) 2023 02/23/2015 HPV Vaccines Aged Out No longer eligi ble based on patient's age to complete this topic Meningococcal B Vaccine Aged Out No l onger eligible based on patient's age to complete this topic Meningococcal Vaccine Aged Out No diallo samira eligible based on patient's age to complete this topic RSV Immunizations Under 20 Months Aged Out No longer eligible based on patient's age to complete this topic Insurance [place] [address] [place] [address] Care Teams Hydrologic Engineer Relationship Specialty Start Date End Date None, Provider, PCP - General 06/24/20
--- OUTSIDE RECORDS SUMMARY | 2024-03-20 12:34 | XMS_ITS | Clinical Summary ---
Author Organization [facility] Address [address] [place] [address] Care Team Providers Care Residential Collections Name Role Phone Yulisa Estrada RN Unavailable Margie Trina Hernandez RN Unavailable Unavailab Trina Veras RN Unavailable Unavailab Josseline Espino Unavailable Unavailable Tere Conklin Primary Care Provider [phone] Parish Mcfarland MD Unavailable Allergies No known active allergies Medications ALPRAZolam (XANAX) 2 mg tablet Take 1 tablet (2 mg total) by mouth 3 (three) times a day as needed 07/04/19 20 Active PARoxetine (PAXIL) 20 mg tablet Take 1.5 tablets (30 mg total) by mouth every morning 07/04/19 20 Active zolpidem (AMBIEN) 10 mg tablet 11/24/19 21 Active blood-glucose meter kit Use to test blood glucose 4 x each day DX E10.65 1 kit 07/16/19 22 Active lancets misc Use to test blood glucose 4 x each day DX E10.65 400 each 3 07/16/19 22 Active naloxone (NARCAN) 4 mg/actuation spray,non-aeroso l 11/10/19 22 Active pen needle, diabetic 31 gauge x 1/4 needle Use to inject insulins 4 times daily, use a new needle for each injection. DX E10.65 300 each 3 12/20/19 23 Active gabapentin (NEURONTIN) 300 mg capsule Take 800 mg by mouth 3 (three) times a day One in morning, one in the afertnoon three at bedtime. Active methadone HCl (METHADONE ORAL) Take 160 mg by mouth daily Verified by the [facility] Active insulin glargine (LANTUS) 100 unit/mL (3 mL) pen for injection INJECT 30 UNITS SUBCUTANEOUSLY DAILY AFTER DINNER 30 mL 3 04/12/19 24 Active atorvastatin (LIPITOR) 40 mg tablet Take 1 tablet (40 mg total) by mouth daily 90 tablet 4 08/10/19 24 025 Active losartan (COZAAR) 25 mg tablet Take 1 tablet (25 mg total) by mouth daily 90 tablet 4 08/10/19 24 025 Active fenofibrate (TRIGLIDE) 160 mg tablet Take 1 tablet (160 mg total) by mouth daily 90 tablet 4 08/10/19 24 025 Active empagliflozin (JARDIANCE) 25 mg tabletIndication s:type 2 diabetes mellitus Take 1 tablet (25 mg total) by mouth daily E11.65 90 tablet 4 11/20/19 24 Active dulaglutide (TRULICITY) 1.5 mg/0.5 mL pen injectorIndicati ons:type 2 diabetes mellitus Inject 0.5 mL (1.5 mg total) under the skin every 7 days E11.65 6 mL 4 01/14/20 24 Active Additional Information Patient not taking.Reported on 02/21/2024 docusate sodium (COLACE) 100 mg capsule 12/25/19 24 Active tiZANidine (ZANAFLEX) 4 mg tablet 12/24/19 24 Active famotidine (PEPCID) 20 mg tablet 12/24/19 24 Active metoclopramide (REGLAN) 10 mg tablet 02/01/20 24 Active FreeStyle Christal 3 Plus Sensor deviceIndication s:Type 2 diabetes mellitus with hypoglycemia without coma, with long-term current use of insulin ([facility]) 1 Device continuously E11.65 6 each 02/20/19 25 025 Active flash glucose scanning reader miscIndications: Type 2 diabetes mellitus with hypoglycemia without coma, with long-term current use of insulin ([facility]) 1 Device continuously To read freestyle christal 3 sensor. E11.65 1 each 02/20/19 25 Active insulin lispro (HumaLOG, ADMELOG) 100 unit/mL pen for injectionIndicat ions:type 2 diabetes mellitus Inject 12 units plus sliding scale TID before meals Total daily dose 50 units. E11.65 45 mL 4 02/20/19 25 Active glucagon (Gvoke HypoPen 2-Pack) 1 mg/0.2 mL auto-injectorInd ications:patient with diabetes mellitus at risk of hypoglycemia Inject 1 mg under the skin as needed (for severe hypoglycemia requiring the assistance of another. will raise Blood sugar 177 points.) E11.65 0.4 mL 11 02/20/19 25 Active blood glucose diagnostic (glucose blood) strip Use to test blood glucose 4 x each day DX E10.65 400 each 3 02/24/19 25 Active blood glucose diagnostic (glucose blood) strip Use to test blood glucose 4 x each day DX E10.65 400 each 3 07/16/19 025 Discontin ued(Reord er) insulin aspart (NovoLOG) 100 unit/mL (3 mL) pen for injection USE DIRECTED ACCORDING TO SLIDING SCALE BEFORE MEALS - MAX OF 78 UNITS PER DAY 75 mL 3 09/01/19 22 025 Discontin ued(Thera py completed ) ARIPiprazole (ABILIFY) 5 mg tablet Take 1 tablet (5 mg total) by mouth daily 05/18/19 24 025 Discontin ued(Thera py completed ) cyclobenzaprine (FLEXERIL) 10 mg tablet Take 1 tablet (10 mg total) by mouth 2 (two) times a day as needed 04/17/19 24 025 Discontin ued(Thera py completed ) ondansetron (ZOFRAN) 8 mg tablet 11/09/19 24 025 Discontin ued(Thera py completed ) insulin lispro (HumaLOG, ADMELOG) 100 unit/mL pen for injection Inject 24-28 units plus sliding scale TID before meals Total daily dose 84 units 75 mL 4 11/27/19 24 025 Discontin ued(Reord er) Active Problems Problem Noted Date Diagnosed Date Class 1 obesity due to exces s calories with serious comorbidity and body mass index (BMI) of 33.0 to 33.9 in adult 08/07/2023 Assessment & Plan (02/21/2024 12:44 PM ENDOCRINOLOGY PHYSICIAN): This is a chronic condition which continues to improve. Hold trulicity for now. 22 lbs. Weight loss since last office visit Encouraged healthy eating which includes a low carb diet. Avoiding processed foods, sweets and fried foods. Encouraged 30 minutes of walking at least 5 days per week Discussed that exercise can be broken down into small sessions- for example 2- 15 minutes sessions or 3- 10 minutes sessions. Assessment & Plan (11/20/2023 3:07 PM CDT): This is a chronic condition which is worsening 11 lbs. Weight gain since last office visit Increase Trulicity to 3 mg weekly Encouraged healthy eating which includes a low carb diet. Avoiding processed foods, sweets and fried foods. Encouraged 30 minutes of walking at least 5 days per week Discussed that exercise can be broken down into small sessions- for example 2- 15 minutes sessions or 3- 10 minutes sessions. Assessment & Plan (08/07/2023 3:49 PM CDT): This is a chronic condition which continues 28 lbs. Weight gain since last office visit in 01/04. Encouraged healthy eating which includes a low carb diet. Avoiding processed foods, sweets and fried foods. Encouraged 30 minutes of walking at least 5 days per week Discussed that exercise can be broken down into small sessions- for example 2- 15 minutes sessions or 3- 10 minutes sessions. Mixed diabetic hyperlipidemi a associated with type 2 diabetes mellitus 07/10/2019 Assessment & Plan (02/21/2024 12:43 PM ENDOCRINOLOGY PHYSICIAN): This is a chronic condition which is not at goal . Goal is LDL less than 70 Continue atorvastatin, fenofibrate Encouraged to eat healthy, include fresh fruits and vegetables daily and avoid eating fried foods more than once per week. Assessment & Plan (11/20/2023 3:07 PM CDT): This is a chronic condition which is not at goal . Goal is LDL less than 70 Continue atorvastatin fenofibrate Encouraged to eat healthy, include fresh fruits and vegetables daily and avoid eating fried foods more than once per week. Assessment & Plan (08/07/2023 3:47 PM CDT): This is a chronic condition which is not at goal . Goal is LDL less than 70 Continue fenofibrate, atorvastatin Encouraged to eat healthy, include fresh fruits and vegetables daily and avoid eating fried foods more than once per week. Encouraged to take medications as prescribed. Assessment & Plan (12/08/2021 11:43 AM CDT): Patient is not using his medications - he will try to do the labs in the next few month Assessment & Plan (06/07/2021 4:07 PM CDT): High LDL and triglycerides > 1000 On lipitor and started Fenofibrate Plan: Dietary management explained to patient Continue medication Fasting labs this week Assessment & Plan (12/07/2020 12:07 PM CDT): High LDL and triglycerides > 1000 On lipitor and started Fenofibrate Plan: The abnormal lab explained to patient Dietary management explained to patient Continue medication Fasting labs before next visit. Assessment & Plan (08/06/2020 3:46 PM CDT): Patient did not use the Rx for Lipitor Cholesterol is 268 on 08/06/20 Plan: The abnormal lab explained to patient Dietary management explained to patient Start Lipitor 20 mg /day I also asked patient to start with PCP, and recommended the [facility] medical group Assessment & Plan (04/08/2020 4:07 PM ENDOCRINOLOGY PHYSICIAN): History of hyperlipidemia Patient was not able to have labs done - they can't draw his blood Bad veins - start Lipitor once /day Assessment & Plan (11/10/2019 3:27 PM CDT): High Cholesterol when was in the hospital in 2019 Not on statins He did not do labs ordered last time. - check labs this week Assessment & Plan (07/10/2019 4:33 PM CDT): High Cholesterol when was in the hospital in 2019 Not on statins - check labs this week Type 2 diabetes mellitus wit h hypoglycemia, with long-term current use of insulin 10/25/2018 Assessment & Plan (02/21/2024 12:51 PM ENDOCRINOLOGY PHYSICIAN): This is a chronic condition which is at goal with 2 episodes of severe hypoglycemia requiring the assistance of EMS. Goal is less than 7%. Personally reviewed most recent A1c - Lab Results Component Value Date HGBA1C 5.6 02/21/2024 Personally reviewed POC blood sugar- at goal of 80-180 Lab Results Component Value Date POCGLU 114 02/21/2024 Medication- continue lantus insulin 30 units Qhs. Decrease humalog insulin 12 units plus sliding scale before meals. , Continue Jardiance 25 mg daily Gvoke 1mg as needed for severe hypoglycemia. Monitor blood sugar continuously with Outboxstyle christal cgm. Encouraged annual eye exam. Monofilament foot exam completed. Protective senses - intact Continue - Gabapentin eGFR- >90 Kidney function-normal Urine microalbumin/creatinine ratio - at goal. Goal is <30 Continue losartan. hold Trulicity for now due to his history of severe hypoglycemia and 22 lb weight loss. He will notify us if he starts to gain weight again. Assessment & Plan (11/20/2023 3:07 PM CDT): This is a chronic condition which is Improving, but not at goal . Goal is less than 7%. Personally reviewed most recent A1c - Lab Results Component Value Date HGBA1C 8.6 11/20/2023 Personally reviewed POC blood sugar- at goal of 80-180 Lab Results Component Value Date POCGLU 143 11/20/2023 Medication- continue lantus insulin 30 units Qhs and Novolog insulin tid , 24-28 units plus sliding scale before meals. , increase Trulicity to 3 mg weekly, add Jardiance 25 mg daily Monitor blood sugar 3 times a day. Encouraged annual eye exam. Monofilament foot exam completed. Protective senses - intact Continue Gabapentin eGFR- greater than 90 Kidney function-at goal Urine microalbumin/creatinine ratio - at goal. Goal is <30 Continue losartan Assessment & Plan (08/07/2023 3:47 PM CDT): This is a chronic condition which is worsening not at goal due to eating candy . Goal is less than 7%. Requesting GLP-1. States he thought he had type 2 diabetes. Will confirm type 1/type 2 and proceed. Will add Glp-1 if type 2 diabetes, will add insulin pump if type 1 status- depending on lab results Personally reviewed most recent A1c - Lab Results Component Value Date HGBA1C 11.5 08/07/2023 Personally reviewed POC blood sugar- not at goal of 80-180 Lab Results Component Value Date POCGLU 290 08/07/2023 Medication- continue lantus insulin 30 units Qhs and Novolog insulin tid , 8 units plus sliding scale before meals. Average 8-12 units per meal Monitor blood sugar 3 times a day. Continuously with cgm. Encouraged annual eye exam. Personally reviewed CMP eGFR- 136 Kidney function-normal Urine microalbumin/creatinine ratio - at goal from 04/04. Will repeat. Goal is <30. not treated with VIVIANA/ARB B/P today- at goal . Goal is <140/90. Personally reviewed lipid panel. Not at goal. Goal is less than 70. Continue atorvastatin, fenofibrate Assessment & Plan (01/02/2023 11:37 AM ENDOCRINOLOGY PHYSICIAN): Diagnosed in September 2018 With blood sugars > 1000 and A1c 14.1% on 10/02/18 He again had a DKA with foot infection in October/2018 Control : not controlled A1c 9.7% on 01/02/23 A1c 9.3% on 07/04/22 A1c 6.6% on 12/08/21 A1c 7.0% on 06/07/21 A1c 6.1% on 09/28/20 A1c 6.7% on 08/06/20 A1c 6.2% on 04/08/20 Kidneys : GFR >60 on 08/21/22 Plan: Patient to continue diet plan. Make sure to take Novolog insulin with each meal Continue Lantus insulin 30 U Qhs. Continue Novolog insulin before meals tid plus sliding scale 4 U > 100. 6 U > 150. 8 u > 200. 10 U > 250 14 U > 300, and 18 U > 350. Monitor sugars 4 x per day Hypoglycemia symptoms and treatment reviewed with patient. Call if having low sugars. Ophthalmology exam on regular basis. Assessment & Plan (07/04/2022 3:11 PM CDT): Diagnosed in September 2018 With blood sugars > 1000 and A1c 14.1% on 10/02/18 He again had a DKA with foot infection in October/2018 Control : not controlled A1c 9.3% on 07/04/22 A1c 6.6% on 12/08/21 A1c 7.0% on 06/07/21 A1c 6.1% on 09/28/20 A1c 6.7% on 08/06/20 A1c 6.2% on 04/08/20 Kidneys : GFR 127 on 09/28/20 Plan: Patient to stop drinking Gatorade. Make sure to take insulin with each meal Continue Lantus insulin 30 U Qhs. Continue Novolog insulin before meals tid plus sliding scale 4 U > 100. 6 U > 150. 8 u > 200. 10 U > 250 14 U > 300, and 18 U > 350. Monitor sugars 4 x per day Hypoglycemia symptoms and treatment reviewed with patient. Call if having low sugars. Ophthalmology exam on regular basis. Assessment & Plan (12/08/2021 11:42 AM CDT): Diagnosed in September 2018 With blood sugars > 1000 and A1c 14.1% on 10/02/18 He again had a DKA with foot infection in October/2018 Control : in reasonable control- no hypoglycemia A1c 6.6% on 12/08/21 A1c 7.0% on 06/07/21 A1c 6.1% on 09/28/20 A1c 6.7% on 08/06/20 A1c 6.2% on 04/08/20 Kidneys : GFR 127 on 09/28/20 Plan: Continue diet plan. Continue Lantus insulin 30 U Qhs. Continue Novolog insulin before meals tid plus sliding scale 4 U > 100. 6 U > 150. 8 u > 200. 10 U > 250 14 U > 300, and 18 U > 350. Monitor sugars 4 x per day Hypoglycemia symptoms and treatment reviewed with patient. Call if having low sugars. Ophthalmology exam on regular basis. Assessment & Plan (06/07/2021 3:33 PM CDT): Diagnosed in September 2018 With blood sugars > 1000 and A1c 14.1% on 10/02/18 He again had a DKA with foot infection in October/2018 Control : in reasonable control- no hypoglycemia A1c 7.0% on 06/07/21 A1c 6.1% on 09/28/20 A1c 6.7% on 08/06/20 A1c 6.2% on 04/08/20 Kidneys : GFR 127 on 09/28/20 Plan: Continue diet plan- cut down on calories. Continue Lantus insulin 30 U Qhs. Continue Novolog insulin before meals tid plus sliding scale 4 U > 100. 6 U > 150. 8 u > 200. 10 U > 250 14 U > 300, and 18 U > 350. Monitor sugars 4 x per day Hypoglycemia symptoms and treatment reviewed with patient. Call if having low sugars. Ophthalmology exam on regular basis. Assessment & Plan (12/07/2020 12:05 PM CDT): Diagnosed in September 2018 With blood sugars > 1000 and A1c 14.1% on 10/02/18 He again had a DKA with foot infection in October/2018 Control : in reasonable control- no hypoglycemia A1c 6.1% on 09/28/20 A1c 6.7% on 08/06/20 A1c 6.2% on 04/08/20 A1c 5.9% on 11/10/2019 A1c 6.4% on 07/10/19 A1c 7.7% on 12/26/18. Kidneys : GFR 127 on 09/28/20 Plan: Continue diet plan- cut down on calories. Continue Lantus insulin 30 U Qhs. Continue Novolog insulin before meals tid plus sliding scale 4 U > 100. 6 U > 150. 8 u > 200. 10 U > 250 14 U > 300, and 18 U > 350. Monitor sugars 4 x per day Hypoglycemia symptoms and treatment reviewed with patient. Call if having low sugars. Ophthalmology exam on regular basis. Assessment & Plan (08/06/2020 3:44 PM CDT): Diagnosed in September 2018 With blood sugars > 1000 and A1c 14.1% on 10/02/18 He again had a DKA with foot infection in October/2018 Control : in reasonable control A1c 6.7% on 08/06/20 A1c 6.2% on 04/08/20 A1c 5.9% on 11/10/2019 A1c 6.4% on 07/10/19 A1c 7.7% on 12/26/18. Plan: Continue diet plan- cut down on calories. Continue Lantus insulin 30 U Qhs. Continue Novolog insulin before meals tid plus sliding scale 4 U > 100. 6 U > 150. 8 u > 200. 10 U > 250 14 U > 300, and 18 U > 350. Monitor sugars 4 x per day Hypoglycemia symptoms and treatment reviewed with patient. Call if having low sugars. Ophthalmology exam on regular basis. Assessment & Plan (04/08/2020 4:06 PM ENDOCRINOLOGY PHYSICIAN): Diagnosed in September 2018 With blood sugars > 1000 and A1c 14.1% on 10/02/18 He again had a DKA with foot infection in October/2018 Control : improved control without hypoglycemia A1c 6.2% on 04/08/20 A1c 5.9% on 11/10/2019 A1c 6.4% on 07/10/19 A1c 7.7% on 12/26/18. Plan: Continue diet plan- cut down on calories. Continue Lantus insulin 30 U Qhs. Continue Novolog insulin before meals tid plus sliding scale 4 U > 100. 6 U > 150. 8 u > 200. 10 U > 250 14 U > 300, and 18 U > 350. Monitor sugars 4 x per day Hypoglycemia symptoms and treatment reviewed with patient. Call if having low sugars. Ophthalmology exam on regular basis. Assessment & Plan (11/10/2019 3:26 PM CDT): Diagnosed in September 2018 With blood sugars > 1000 and A1c 14.1% on 10/02/18 He again had a DKA with foot infection in October/2018 Control : improved control A1c 5.9% on 11/10/2019 A1c 6.4% on 07/10/19 A1c 7.7% on 12/26/18. Eye : needs exam Plan: Refer patient to aircraft systems technician. Patient asked to start seeing PCP Continue Lantus insulin 30 U Qhs. Continue Novolog insulin before meals tid plus sliding scale 4 U > 100. 6 U > 150. 8 u > 200. 10 U > 250 14 U > 300, and 18 U > 350. Monitor sugars 4 x per day Hypoglycemia symptoms and treatment reviewed with patient. Call if having low sugars. Ophthalmology exam on regular basis. Assessment & Plan (07/10/2019 4:38 PM CDT): Diagnosed in September 2018 With blood sugars > 1000 and A1c 14.1% on 10/02/18 He again had a DKA with foot infection in October/2018 Control : improved control A1c 7.7% on 12/26/18. Eye : needs exam Plan: Refer patient to aircraft systems technician. Patient asked to start seeing PCP Continue Lantus insulin 30 U Qhs. Continue Novolog insulin before meals tid plus sliding scale 4 U > 100. 6 U > 150. 8 u > 200. 10 U > 250 14 U > 300, and 18 U > 350. Monitor sugars 4 x per day Hypoglycemia symptoms and treatment reviewed with patient. Call if having low sugars. Ophthalmology exam on regular basis. Cellulitis of extremity 10/15/2018 Paroxysmal SVT (supraventricular tachycardia) Chronic pain syndrome 12/24/2017 Bipolar disorder 12/24/2017 Long-term current use of opiate analgesic 2017 Lumbosacral spondylosis without myelopathy 12/10 Radiculopathy, lumbosacral region 12/10/2017 Spinal stenosis of lumbar re gion without neurogenic claudication 12/10/2017 Postlaminectomy syndrome, lumbar 12/10/2017 Opiate withdrawal Resolved Problems Problem Noted Date Diagnosed Date Resolved Date Influenza A 04/11/2023 08/07/2023 Diabetic ketoacidosis with c eliecer associated with type 1 diabetes mellitus ([facility]) 04/08/2023 08/07/2023 Hyponatremia 10/15/2018 08/07/2023 Diabetic ketoacidosis withou t coma associated with diabetes mellitus due to underlying condition ([facility]) 10/15/2018 08/07/2023 Type 2 diabetes mellitus wit h hyperglycemia, without long-term current use of insulin 10/08/2018 07/10/2019 Encounters Date Type Department Care Team Description 02/28/2024 Telephone [facility] Diabetes Endocrine Care at [address] [phone] Nasra Rendon NP 02/21/2024 11:00 AM ENDOCRINOLOGY PHYSICIAN Office Visit [facility] Diabetes Endocrine Care at [address] [place] [address] Nasra Rendon NP Type 2 diabetes mellitus with hypoglycemia without coma, with long-term current use of insulin (HCC) (Primary Dx); Mixed diabetic hyperlipidemia associated with type 2 diabetes mellitus (HCC); Class 1 obesity due to excess calories with serious comorbidity and body mass index (BMI) of 33.0 to 33.9 in adult 02/21/2024 Telephone [facility] Diabetes Endocrine Care at [address] [place] [id number] Nasra Rendon NP 01/09/2024 Telephone [facility] Diabetes Endocrine Care at [address] [place] [phone] Nasra Rendon NP from Last 3 Months Immunizations Name Administration Dates Next Due DTP 06/17/1991, 9,02/28/1987,11/27,1986 Flucelvax Influenza Quad MDI 11/21/2013 Hep B, Adolescent or Pediatric 11/17/1996,1996,05/19/1996 HiB 12/08/1988 Influenza, Quadrivalent, Spl it, Preservative Free, Intramuscular 02/23/2015 Influenza, Trivalent, Cell Culture-based MDCK, Preservative Free, Antibiotic Free, Intramuscular 11/21/2013 MMR 06/17/1991,10/28/1987 OPV 06/17/1991, 9,02/28/1987,11/27,1986 Pneumococcal Polysaccharide PPV23 11/21/2013 Td, adsorbed 05/17/2001 Surgical History Surgery Date Site/Laterality Comments BACK SURGERY 02/12/2010 - 02/11/2011 Lumbar WISDOM TOOTH EXTRACTION Medical History Medical History Date Comments Hypertension Diabetes mellitus (HCC) Opiate abuse, continuous (HCC) SVT (supraventricular tachycardia) (HCC) Hepatitis C treated Type 2 diabetes mellitus (HCC) History of seizure Bipolar disorder (HCC) Arthritis Diabetic ketoacidosis withou t coma associated with diabetes mellitus due to underlying condition (CMS/HCC) (HCC) 10/15/2018 Diabetic ketoacidosis with c eliecer associated with type 1 diabetes mellitus (CMS/HCC) (HCC) 04/08/2023 Influenza A 04/11/2023 Hyponatremia 10/15/2018 Family History Medical History Relation Name Comments Diabetes Father Hyperlipidemia Father Hypertension Father Hypertension Mother Relation Name Status Comments Father Mother Social History Tobacco Use Types Packs/Day Years Used Date Smoking Tobacco: Every Day Cigarettes 0.5 23.1 Started: 2001 Smokeless Tobacco: Never Tobacco Cessation:Ready to Q uit: Not Asked; Counseling Given: Not Answered Comments:5-6 cig per day Alcohol Use Standard Drinks/Week Comments No 0 (1 standard drink = 0.6 oz pur e alcohol) [facility] Utilities Answer Date Recorded In the past 12 months has th e cooala - your brands, gas, oil, or water [employer] threatened to shut off services in your home? No 04/10/2023 Social Connection and Isolat ion Panel [NHANES] Answer Date Recorded In a typical week, how many times do you talk on the phone with family, friends, or neighbors? Three times a week 04/10/2023 How often do you get togethe r with friends or relatives? More than three times a week 04/10/2023 Attends Buddhism Services Not on file 04/10 Active Member of Clubs or Organizations Not on f ile 04/10/2023 Attends Club or Organization Meetings Not on james e 04/10/2023 Are you , , di vorced, , never , or living with a partner? 04/10/2023 Overall Financial Resource Strain (CARDIA) Answe r Date Recorded How hard is it for you to pa y for the very basics like food, housing, medical care, and heating? Not very hard 04/10/2023 PHQ-2 Answer Date Recorded PHQ-2 Score 0 10/02/2018 Hunger Vital Sign Answer Date Recorded Within the past 12 months, y ou worried that your food would run out before you got the money to buy more. Never true 04/10/19 24 Within the past 12 months, t he food you bought just didn't last and you didn't have money to get more. Never true 04/10/2023 PRAPARE - Transportation Answer Date Re corded In the past 12 months, has l ack of transportation kept you from medical appointments or from getting medications? No 03/16 In the past 12 months, has l ack of transportation kept you from meetings, work, or from getting things needed for daily living? No 04/10/2023 Housing Stability Vital Sign Answer Nathan e Recorded In the last 12 months, was t here a time when you were not able to pay the mortgage or rent on time? No 04/10/2023 In the last 12 months, how many places have you lived? 1 04/10/2023 In the last 12 months, was t here a time when you did not have a steady place to sleep or slept in a usp (including now)? No 04/10/2023 Personal Safety Answer Date Recorded Have you ever been in or are you currently in a harmful physical or emotional relationship or is someone making you feel afraid or unsafe? Denies 08/13/2023 Sex and Gender Information Value Date Recorded Sex Assigned at Not on file Legal Sex Male 1:12 PM ENDOCRINOLOGY PHYSICIAN Gender Identity Not on file Sexual Orientation Not on file Obstetrics History Last Filed Vital Signs Vital Sign Reading Time Taken Comments Blood Pressure 128/76 02/21/2024 11:12 AM ENDOCRINOLOGY PHYSICIAN Pulse 72 08/13/2023 11:00 AM CDT Temperature 36.3 C (97.4 F) 08/13/2023 8:51 AM CDT Respiratory Rate 16 08/13/2023 8:51 AM CDT Oxygen Saturation 94% 08/13/2023 11:00 AM CDT Inhaled Oxygen Concentration - - Weight 121 kg (266 lb 11.2 oz) 02/21/2024 11:12 AM ENDOCRINOLOGY PHYSICIAN Height 190.5 cm (6' 3 ) 02/21/2024 11:12 AM ENDOCRINOLOGY PHYSICIAN Body Mass Index 33.34 02/21/2024 11:12 AM ENDOCRINOLOGY PHYSICIAN Plan of Treatment Health Maintenance Due Date Last Done Comments Varicella Vaccines (1 of 2 - 13+ 2-dose series) 07/14/1999 DTaP/Tdap/Td Vaccine (6 - Tdap) 05/18/2001 05/17/2001, 06/17/1991, 02/17/1988, Additional history exists Regular Well Visit/Exam 18-64 2004 Depression Screening 10/03/2019 10/02/2018 Covid-19 Vaccine ( season) 2023 07/10/2020, 06/12/2020 TSH Level 04/09/2024 04/09/2023, 08/12, 10/03/2018, Additional history exists Albumin Creatinine Ratio, Urine 08/08/2024 08/09/2023, 03/25/2020 Lipid Panel 08/08/2024 08/09/2023, 08/12, 09/28/2020, Additional history exists Influenza Vaccine (#1) 2024 6, 11/21/2013, 11/21/2013 Postponed from 10/14/2023 (Patient declined, but will receive in the future) eGFR 08/12/2024 08/13/2023, 03/16, 04/10/2023, Additional history exists Hemoglobin A1C 08/20/2024 02/21/2024, 100 09/2023, 08/07/2023, Additional history exists Dilated Eye Exam 11/19/2024 11/20/2023 Pneumococcal vaccine <65 (2 of 2 - PCV) 02/17/2025 11/21/2013 Postponed from 11/21/2014 (Patient declined, but will receive in the future) Foot Exam 02/20/2025 02/21/2024, 09/2023, 08/07/2023, Additional history exists Hepatitis C Screening Completed 10/15/2018 HPV Vaccines Aged Out No longer eligi ble based on patient's age to complete this topic Medical Devices Implanted Type Area Combine Mechanic Device Identifier Shelf Expiration Date Model / Serial / Lot [employer] 1192 Patel-Lock [place] Lead - [id number] Implanted:Qty: 2 on 12/26/2018 by Mert Garcia MD at [facility] [employer] 05/22/2020 1192 / / [id number] [employer] [id number] Octrode 60cm 8 Electrode Lead Percutaneous Kit Neurostimulator - [id number] - [id number] Implanted:Qty: 1 on 12/26/2018 by Mert Garcia MD at [facility] [employer] 05/01/2020 [id number] / [id number] / [employer] [id number] Octrode 60cm 8 Electrode Lead Percutaneous Kit Neurostimulator - [id number] - [id number] Implanted:Qty: 1 on 12/26/2018 by Mert Garcia MD at [facility] 04/28/2020 [id number] / [id number] / [facility] 3660 Contrlsys Proclaim Elite 4.95cmx5.55cm 5 Implantable Pulse Tonic - [id number] - [id number] Implanted:Qty: 1 on 12/26/2018 by Mert Garcia MD at [facility] 11/14/2020 3660 CONTRLSYS / [id number] / Description:[email or web address] Procedures Procedure Name Priority Date/Time Associated Diagnosis Comments POCT HEMOGLOBIN A1C Routine 02/21/2024 1 1:15 AM ENDOCRINOLOGY PHYSICIAN Type 2 diabetes mellitus with hypoglycemia without coma, with long-term current use of insulin (HCC) POCT GLUCOSE Routine 02/21/2024 11:15 AM ENDOCRINOLOGY PHYSICIAN Type 2 diabetes mellitus with hypoglycemia without coma, with long-term current use of insulin (HCC) RETINAVUE SCANNER - OU - BOTH EYES Routine 11/20/2023 Type 1 diabetes mellitus with hyperglycemia (HCC) EGFR STAT 08/13/2023 9:07 AM CDT LIPID PANEL Routine 08/09/2023 9:00 AM CDT Type 1 diabetes mellitus with hyperglycemia (HCC) ALBUMIN CREATININE RATIO, URINE Routine 08/09/2023 9:00 AM CDT Type 1 diabetes mellitus with hyperglycemia (HCC) THYROID FUNCTION CASCADE Routine 04/09/2023 3:43 PM ENDOCRINOLOGY PHYSICIAN HEPATITIS PANEL, ACUTE Routine 10/15/2018 9:55 AM CDT from Last 3 Months or Most Recently Relevant to Health Maintenance Results * POCT hemoglobin A1c (02/21/2024 11:15 AM ENDOCRINOLOGY PHYSICIAN) Hemoglobin A1C, POC 5.6 4.0 - 5.6 % Blood 02/21/2024 11:1 5 AM ENDOCRINOLOGY PHYSICIAN us Nasra Rendon NP POINT OF CARE TEST ORDERABLES F inal Result * POCT glucose (02/21/2024 11:15 AM ENDOCRINOLOGY PHYSICIAN) Glucose Blood, POC 114 mg/dL Blood 02/21/2024 11:1 5 AM ENDOCRINOLOGY PHYSICIAN us Nasra Rendon NP POINT OF CARE TEST ORDERABLES F inal Result * RetinaVue Scanner - OU - Both Eyes (11/20/2023) Anatomical Region Laterality Modality Head Fundus Photograp hy 11/20/2023 us Nasra Rendon NP OPHTH PHOTOGRAPHY Final Result * eGFR (08/13/2023 9:07 AM CDT) eGFR >90 >=60 mL/min/1. 73 m2 Comment: Interpretive Data Reference Interval Normal >/= 90 mL/min/1.73m2 Mildly decreased* 60 - 89 mL/min/1.73m2 Mildly to moderately decreased 45 - 59 mL/min/1.73m2 Moderately to severely decreased 30 - 44 mL/min/1.73m2 Severely decreased 15 - 29 mL/min/1.73m2 Kidney Failure < 15 mL/min/1.73m2 *Relative to young adult level Estimated glomerular filtration rate is determined by the 2020 CKD-EPI equation recommended by the National Kidney Foundation (A Unifying Approach to GFR Estimation: Recommendations of the NKF-ASK Task Force on Reassessing the Inclusion of Race in Diagnosing Kidney Disease, JASN 2020). The CKD-EPI equation should not be used for patients with unstable renal function and has not been validated in children and those over 70. Current interpretive data was last reviewed 2020. Blood 08/13/2023 9:07 AM CDT 08/13/2023 9:11 AM CDT us Serena Torres MD LAB BLOOD ORDERABLES Johana l Result SHERRI MARIE ([place]) [address] [facility] Department [place] [address] * (ABNORMAL) Albumin Creatinine Ratio, Urine (08/09/2023 9:00 AM CDT) Albumin Ur 28.9 mg/L Comment: Interpretive Data No reference range established. Current interpretive data was last revised 2018. Creatinine Ur 42.3 mg/dL SHERRI MITTAL Comment: Interpretive Data No reference range established. Current interpretive data was last revised 2018. Albumin Creatinine Ratio, Ur 68(H) 1 - 29 mg/g SHERRI MITTAL Urine 08/09/2023 9:00 AM CDT 08/09/2023 2:35 PM CDT Nasra Rendon NP LAB URINE ORDERABLES Final Resu lt SHERRI [id number] Department [place] [address] * (ABNORMAL) Lipid panel (08/09/2023 9:00 AM CDT) Cholesterol 270(H) 30 - 199 mg/dL Comment: Interpretive Data Ages < or = 19 years Acceptable: <170 mg/dL Borderline high: 170-199 mg/dL High: >or= 200 mg/dL Ages > or = 20 years Desirable: <200 mg/dL Borderline high: 200-239 mg/dL High: >or= 240 mg/dL Literature References: 1. Expert Panel on Integrated Guidelines for Cardiovascular Health and Risk Reduction in Children and Adolescents. Pediatrics 2011;128:S213 2. NCEP Expert Panel. Circulation 2004;110:227 Current Interpretive Data was last revised on 2017. Triglycerides 693(H) <=149 mg/dL SHERRI MITTAL Comment: Interpretive Data Ages < or = 9 years Acceptable: <75 mg/dL Borderline high: 75-99 mg/dL High: >or= 100 mg/dL Ages 10 to 20 years Acceptable: <90 mg/dL Borderline high: 90-129 mg/dL High: >or= 130 mg/dL Ages > or = 20 years Desirable: <150 mg/dL Borderline high: 150-199 mg/dL High: 200-499 mg/dL Very high: >or= 499 mg/dL Literature References: 1. Expert Panel on Integrated Guidelines for Cardiovascular Health and Risk Reduction in Children and Adolescents. Pediatrics 2011;128:S213 2. NCEP Expert Panel. Circulation 2004;110:227 Current Interpretive Data was last revised on 2017. HDL 37(L) >=40 mg/dL SHERRI MITTAL Comment: Interpretive Data Ages < or = 19 years Acceptable: >45 mg/dL Borderline low: 40-45 mg/dL Low: <40 mg/dL Ages > or = 20 years Desirable: >or= 60 mg/dL Low: <40 mg/dL Literature References: 1. Expert Panel on Integrated Guidelines for Cardiovascular Health and Risk Reduction in Children and Adolescents. Pediatrics 2011;128:S213 2. NCEP Expert Panel. Circulation 2004;110:227 Current Interpretive Data was last revised on 2017. LDL, calculated See Comment <=129 mg/dL SHERRI MITTAL Comment: Unable to calculate due to elevated Triglycerides. Interpretive Data Ages < or = 19 years Acceptable: <110 mg/dL Borderline high: 110-129 mg/dL High: >or= 130 mg/dL Ages > or = 20 years Optimal: <100 mg/dL Near optimal: 100-129 mg/dL Borderline high: 130-159 mg/dL High: >160 mg/dL Literature References: 1. Expert Panel on Integrated Guidelines for Cardiovascular Health and Risk Reduction in Children and Adolescents. Pediatrics 2011;128:S213 2. NCEP Expert Panel. Circulation 2004;110:227 Current Interpretive Data was last revised on 2017. Non-HDL Cholesterol 233 mg/dL SHERRI MITTAL Comment: Interpretive Data Ages < or = 19 years Acceptable: <120 mg/dL Borderline high: 120-144 mg/dL High: >145 mg/dL Ages > or = 20 years When triglycerides are >200 mg/dL, Non-HDL cholesterol is a secondary target of therapy with treatment goals that are 30 mg/dL greater than the LDL cholesterol target. Literature References: 1. Expert Panel on Integrated Guidelines for Cardiovascular Health and Risk Reduction in Children and Adolescents. Pediatrics 2011;128:S213 2. NCEP Expert Panel. Circulation 2004;110:227 Current Interpretive Data was last revised on 2017. Chol/HDL ratio 7 CERNER CH Blood 08/09/2023 9:00 AM CDT 08/09/2023 2:35 PM CDT [facility]ative [facility] 08/09/[facility]23 3:22 PM CDT These lab test should be done fasting. This means do not eat or drink for at least 12 hours prior to getting your blood drawn. Has the patient been fasting for 8 hours or more?->Yes us Nasra Rendon CLINICAL CONSULTANT LAB BLOOD ORDERABLES Final Resu lt Performing Organization Address [facility]/ZIP Co de Phone Number [facility] [id number] [place] [address] Department [place] [address] * Thyroid Function [place] (04/09/2023 3:43 PM ENDOCRINOLOGY PHYSICIAN) TSH 0.45 0.30 - 4.20 mcIUnit/mL SHERRI MARIE ([place]) Blood 04/09/2023 3:43 PM ENDOCRINOLOGY PHYSICIAN 04/09/2023 4:33 PM ENDOCRINOLOGY PHYSICIAN us Ronnie Barney MD LAB BLOOD ORDERABLES Final Resu lt Performing Organization Address City/[facility]/ZIP Co de Phone Number SHERRI [facility] ([place]) [address] [facility] Department [place] [address] * (ABNORMAL) Hepatitis panel, acute (10/15/2018 9:55 AM CDT) Hep A IgM Negative Negative SHERRI MARIE ([place]) Comment:Testing performed by : [facility], [address] [place] [address]., [address] Hep B core IgM Negative Negative SHERRI MARIE ([place]) Comment:Testing performed by : [facility], [address] [place] [address], [place]., [address] Hep C Ab Positive(A) Negative SHERRI A ([place]) Comment:Testing performed by : [facility], [address] [place] [address]., [address] HepBsAg Nonreactive Nonreactive SHERRI MARIE ([place]) Comment:Testing performed by : [facility], [address] [place] [address]., [address] Blood specimen (specimen) 10/15/2018 9:55 AM CDT 10/15/2018 1:53 PM CDT Amna Farley MD LAB MICROBIOLOGY - GENER AL ORDERABLES Final Result SHERRI FRANK ([place]) [address] [facility] Department [place] [address] from Last 3 Months or Most Recently Relevant to Health Maintenance Insurance [facility] Advance Directives For more information, please contact: [phone] * Full Code (Latest Code Status on File) Date Activated Date Inactivated Comments 04/08/2023 11:24 PM 04/11/2023 8:05 PM * Full Code Date Activated Date Inactivated Comments 04/08/2023 10:02 PM 04/08/2023 11:24 PM * Full Code Date Activated Date Inactivated Comments 10/15/2018 8:23 AM 10/18/2018 9:10 PM * Full Code Date Activated Date Inactivated Comments 10/02/2018 6:19 PM 10/04/2018 5:36 PM Care Teams Residential Collections Relationship Specialty Start Date End Date Tere Conklin PA [address] [place] [id number] PCP - General Emergency Medicine 12/08/21 Yulisa Estrada RN Registered Nurse 12/10/17 Trina Aguirre, RN Registered Nurse 07/01/18 Trina Aguirre, RN Registered Nurse 09/17/18 Josseline Giraldo Bench Manager Addiction Medicine 02/03/20 Parish Mcfarland MD [address] [place] [address] [place] [address] Consulting Physician Pulmonary Disease 04/11/23
--- OUTSIDE RECORDS SUMMARY | 2024-03-20 12:34 | XMS_ITS ---
Care Plan - [facility] Created on: March 20, 2024 HIEN RUIZ : 1985 Sex: Male Author Organization [facility] Address [address] [place] [address] Phone Care Team Providers Care Dump Grounds Checker Name Role Phone Unavailable Unavailable Unavailable
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
--- OUTSIDE RECORDS SUMMARY | 2024-03-20 12:34 | XMS_ITS | Referral Summary ---
Author Organization [facility] Address [address] [place] [id number] Care Team Providers Care Iron Guardrail Installer Name Role Phone Yulisa Estrada RN Unavailable Margie Trina Hernandez RN Unavailable Unavailab Trina Veras RN Unavailable Unavailab Josseline Espino Unavailable Unavailable Tere Conklin Primary Care Provider [phone] Parish Mcfarland MD Unavailable Encounters Date Type Department Care Team Description 02/28/2024 Telephone [facility] Medical [facility] Diabetes Endocrine Care at [address] [address] Nasra Rendon, GWENDOLYN 02/21/2024 Telephone [facility] Diabetes Endocrine Care at [address] [address] Nasra Rendon, GWENDOLYN 02/21/2024 11:00 AM ELECTRICAL INSTRUMENTATION TECHNICIAN Office Visit [facility] Medical [facility] Diabetes Endocrine Care at [address] [address] Nasra Rendon, RESPIRATORY MEDICINE PHYSICIAN Type 2 diabetes mellitus with hypoglycemia without coma, with long-term current use of insulin (HCC) (Primary Dx); Mixed diabetic hyperlipidemia associated with type 2 diabetes mellitus (HCC); Class 1 obesity due to excess calories with serious comorbidity and body mass index (BMI) of 33.0 to 33.9 in adult 01/09/2024 Telephone [facility] Medical Group Diabetes Endocrine Care at [address] [place] [address] Nasra Rendon, RESPIRATORY MEDICINE PHYSICIAN from Last 3 Months Allergies No known active allergies Medications ALPRAZolam (XANAX) 2 mg tablet Take 1 tablet (2 mg total) by mouth 3 (three) times a day as needed 07/04/19 Active PARoxetine (PAXIL) 20 mg tablet Take 1.5 tablets (30 mg total) by mouth every morning 07/04/19 Active zolpidem (AMBIEN) 10 mg tablet 11/24/19 [...] mg by mouth daily Verified by the [facility] Active insulin glargine (LANTUS) 100 unit/mL [...] coma, with long-term current use of insulin ([facility]) 1 Device continuously E11.65 6 each 4 02/20/19 25 025 Active flash glucose scanning reader miscIndications: Type 2 diabetes mellitus with hypoglycemia without coma, with long-term current use of insulin ([facility]) 1 Device continuously To read freestyle christal 3 sensor. E11.65 1 each 1 02/20/19 25 Active insulin lispro (HumaLOG, ADMELOG) [...] DX E10.65 400 each 3 07/16/19 22 025 Discontin ued(Reord er) insulin aspart (NovoLOG) [...] 08/07/2023 Assessment & Plan (02/21/2024 12:44 PM ELECTRICAL INSTRUMENTATION TECHNICIAN): This is a chronic condition which continues [...] 07/10/2019 Assessment & Plan (02/21/2024 12:43 PM ELECTRICAL INSTRUMENTATION TECHNICIAN): This is a chronic condition which is [...] to start with PCP, and recommended the [facility] medical group Assessment & Plan (04/08/2020 4:07 PM ELECTRICAL INSTRUMENTATION TECHNICIAN): History of hyperlipidemia Patient was not able [...] 10/25/2018 Assessment & Plan (02/21/2024 12:51 PM ELECTRICAL INSTRUMENTATION TECHNICIAN): This is a chronic condition which is [...] severe hypoglycemia. Monitor blood sugar continuously with CloudPhysicsyle christal cgm. Encouraged annual eye exam. Monofilament [...] fenofibrate Assessment & Plan (01/02/2023 11:37 AM ELECTRICAL INSTRUMENTATION TECHNICIAN): Diagnosed in September 2018 With blood sugars [...] basis. Assessment & Plan (04/08/2020 4:06 PM ELECTRICAL INSTRUMENTATION TECHNICIAN): Diagnosed in September 2018 With blood sugars [...] : needs exam Plan: Refer patient to truss designer. Patient asked to start seeing PCP Continue [...] : needs exam Plan: Refer patient to truss designer. Patient asked to start seeing PCP Continue [...] eliecer associated with type 1 diabetes mellitus ([facility]) 04/08/2023 08/07/2023 Hyponatremia 10/15/2018 08/07/2023 Diabetic ketoacidosis withou t coma associated with diabetes mellitus due to underlying condition ([facility]) 10/15/2018 08/07/2023 Type 2 diabetes mellitus wit h hyperglycemia, without long-term current use of insulin 10/08/2018 07/10/2019 Immunizations Name Administration Dates Next Due DTP 06/17/1991, 9,02/28/1987,11/27,1986 Flucelvax Influenza Quad MDI 11/21/2013 Hep B, Adolescent or Pediatric 11/17/1996,1996,05/19/1996 HiB 12/08/1988 Influenza, Quadrivalent, Spl it, Preservative Free, Intramuscular 02/23/2015 Influenza, Trivalent, Cell Culture-based MDCK, Preservative Free, Antibiotic Free, Intramuscular 11/21/2013 MMR 06/17/1991,10/28/1987 OPV 06/17/1991, 9,02/28/1987,11/27,1986 Pneumococcal Polysaccharide PPV23 11/21/2013 Td, adsorbed 05/17/2001 Social History Tobacco Use Types Packs/Day Years Used Date Smoking Tobacco: Every Day Cigarettes 0.5 23.1 Started: 2001 Smokeless Tobacco: Never Tobacco Cessation:Ready to Q uit: Not Asked; Counseling Given: Not Answered Comments:5-6 cig per day Alcohol Use Standard Drinks/Week Comments No 0 (1 standard drink = 0.6 oz pur e alcohol) [facility] Utilities Answer Date Recorded In the past 12 months has th e [employer], gas, oil, or water [employer]re[employer] threatened to shut off services in your home? No 04/10/2023 Social Connection and Isolat ion Panel [NHANES] Answer Date Recorded In a typical week, how many times do you talk on the phone with family, friends, or neighbors? Three times a week 04/10/2023 How often do you get togethe r with friends or relatives? More than three times a week 04/10/2023 Attends [employer] Not on file 04/10 Active Member [...] place to sleep or slept in a correction (including now)? No 04/10/2023 Personal Safety Answer Date Recorded Have you ever been in or are you currently in a harmful physical or emotional relationship or is someone making you feel afraid or unsafe? Denies 08/13/2023 Sex and Gender Information Value Date Recorded Sex Assigned at Not on file Legal Sex Male 1:12 PM ELECTRICAL INSTRUMENTATION TECHNICIAN Gender Identity Not on file Sexual Orientation Not on file Last Filed Vital Signs Vital Sign Reading Time Taken Comments Blood Pressure 128/76 02/21/2024 11:12 AM ELECTRICAL INSTRUMENTATION TECHNICIAN Pulse 72 08/13/2023 11:00 AM CDT Temperature 36.3 C (97.4 F) 08/13/2023 8:51 AM CDT Respiratory Rate 16 08/13/2023 8:51 AM CDT Oxygen Saturation 94% 08/13/2023 11:00 AM CDT Inhaled Oxygen Concentration - - Weight 121 kg (266 lb 11.2 oz) 02/21/2024 11:12 AM ELECTRICAL INSTRUMENTATION TECHNICIAN Height 190.5 cm (6' 3 ) 02/21/2024 11:12 AM ELECTRICAL INSTRUMENTATION TECHNICIAN Body Mass Index 33.34 02/21/2024 11:12 AM ELECTRICAL INSTRUMENTATION TECHNICIAN Plan of Treatment Not on file Medical Devices Implanted Type Area Senior Environmental Technician Device Identifier Shelf Expiration Date Model / Serial / Lot [employer] 1192 Patel-Lock Jefferson Lead - [id number] Implanted:Qty: 2 on 12/26/2018 by Mert Garcia MD at [facility] 05/22/2020 1192 / / [id number] [employer] [id number] Octrode 60cm 8 Electrode Lead Percutaneous Kit Neurostimulator - [id number] - [id number] Implanted:Qty: 1 on 12/26/2018 by Mert Garcia MD at [facility] 05/01/2020 [id number] / [id number] / [employer] [id number] Octrode 60cm 8 Electrode Lead Percutaneous Kit Neurostimulator - [id number] - [id number] Implanted:Qty: 1 on 12/26/2018 by Mert Garcia MD at [facility] [employer] 04/28/2020 [id number] / [id number] / [employer] 3660 Contrlsys Proclaim Elite 4.95cmx5.55cm 5 Implantable Pulse Tonic - [id number] - [id number] Implanted:Qty: 1 on 12/26/2018 by Mert Garcia MD at [facility] 11/14/2020 3660 CONTRLSYS / [id number] / Description:[email or web address] Procedures Procedure Name Priority Date/Time Associated Diagnosis Comments POCT HEMOGLOBIN A1C Routine 02/21/2024 1 1:15 AM ELECTRICAL INSTRUMENTATION TECHNICIAN Type 2 diabetes mellitus with hypoglycemia without coma, with long-term current use of insulin (HCC) POCT GLUCOSE Routine 02/21/2024 11:15 AM ELECTRICAL INSTRUMENTATION TECHNICIAN Type 2 diabetes mellitus with hypoglycemia without [...] THYROID FUNCTION CASCADE Routine 04/09/2023 3:43 PM ELECTRICAL INSTRUMENTATION TECHNICIAN HEPATITIS PANEL, ACUTE Routine 10/15/2018 9:55 AM CDT from Last 3 Months or Most Recently Relevant to Health Maintenance Results * POCT hemoglobin A1c (02/21/2024 11:15 AM ELECTRICAL INSTRUMENTATION TECHNICIAN) Hemoglobin A1C, POC 5.6 4.0 - 5.6 % Blood 02/21/2024 11:1 5 AM ELECTRICAL INSTRUMENTATION TECHNICIAN Nasra Rendon NP POINT OF CARE TEST ORDERABLES F inal Result * POCT glucose (02/21/2024 11:15 AM ELECTRICAL INSTRUMENTATION TECHNICIAN) Glucose Blood, POC 114 mg/dL Blood 02/21/2024 11:1 5 AM ELECTRICAL INSTRUMENTATION TECHNICIAN Nasra Rendon NP POINT OF CARE TEST ORDERABLES F inal Result * RetinaVue Scanner - OU - Both Eyes (11/20/2023) Anatomical Region Laterality Modality Head Fundus Photograp hy 11/20/2023 Nasra Rendon NP OPHTH PHOTOGRAPHY Final Result [...] 9:07 AM CDT 08/13/2023 9:11 AM CDT Serena Torres MD LAB BLOOD ORDERABLES Johana l Result [facility] Department [place] [address] * (ABNORMAL) Albumin Creatinine Ratio, Urine (08/09/2023 9:00 AM CDT) Albumin Ur 28.9 mg/L Comment: Interpretive Data No reference range established. Current interpretive data was last revised 2018. Creatinine Ur 42.3 mg/dL SHERRI Comment: Interpretive Data No reference range established. Current interpretive data was last revised 2018. Albumin Creatinine Ratio, Ur 68(H) 1 - 29 mg/g [facility] Urine 08/09/2023 9:00 AM CDT 08/09/2023 2:35 PM CDT us Nasra Rendon NP LAB URINE ORDERABLES Final Resu lt [facility] [id number] [address] Department [place] [address] * (ABNORMAL) Lipid panel (08/09/2023 9:00 AM [...] on 2017. Triglycerides 693(H) <=149 mg/dL [facility]RI Comment: Interpretive Data Ages < or = [...] LDL, calculated See Comment <=129 mg/dL [facility]RI Comment: Unable to calculate due to elevated [...] last revised on 2017. Chol/HDL ratio 7 [facility] Blood 08/09/2023 9:00 AM CDT 08/09/2023 2:35 PM CDT Narrative [facility] MITTAL - 08/09/2023 3:22 PM CDT These lab test should be done fasting. This means do not eat or drink for at least 12 hours prior to getting your blood drawn. Has the patient been fasting for 8 hours or more?->Yes Nasra Rendon NP LAB BLOOD ORDERABLES Final Resu lt Performing Organization Address City/[facility]/ZIP Co de Phone Number [facility] [address] [facility] Department of Laboratories [place], [place] [id number] * Thyroid Function [place] (04/09/2023 3:43 PM ELECTRICAL INSTRUMENTATION TECHNICIAN) TSH 0.45 0.30 - 4.20 mcIUnit/mL [facility] ([place]) Blood 04/09/2023 3:43 PM ELECTRICAL INSTRUMENTATION TECHNICIAN 04/09/2023 4:33 PM ELECTRICAL INSTRUMENTATION TECHNICIAN Ronnie Barney MD LAB BLOOD ORDERABLES Final Resu lt Performing Organization Address City/[facility]/ZIP Co de Phone Number [facility] ([place]) [facility] Department [place] [address] * (ABNORMAL) Hepatitis panel, acute (10/15/2018 9:55 AM CDT) Pathologist [facility] Hep A IgM Negative Negative [facility]IE ([place]) Comment:Testing performed by : [address] [address] Hep B core IgM Negative Negative SH[facility] MARIE ([place]) Comment:Testing performed by : [address] [address] Hep C Ab Positive(A) Negative SHERRI A ([place]) Comment:Testing performed by : [address] [address] HepBsAg Nonreactive Nonreactive [facility] ([place]) Comment:Testing performed by : [address] [address] Blood specimen (specimen) 10/15/2018 9:55 AM CDT 10/15/2018 1:53 PM CDT Amna Farley MD LAB MICROBIOLOGY - GENER AL ORDERABLES Final Result [facility] [place] [address] from Last 3 Months or Most Recently Relevant to Health Maintenance Insurance [facility] Advance Directives For more information, please contact: [phone] * Full Code (Latest Code Status on File) Date Activated Date Inactivated Comments 04/08/2023 11:24 PM 04/11/2023 8:05 PM * Full Code Date Activated Date Inactivated Comments 04/08/2023 10:02 PM 04/08/2023 11:24 PM * Full Code Date Activated Date Inactivated Comments 10/15/2018 8:23 AM 10/18/2018 9:10 PM * Full Code Date Activated Date Inactivated Comments 10/02/2018 6:19 PM 10/04/2018 5:36 PM Care Teams Iron Guardrail Installer Relationship Specialty Start Date End Date Tere Conklin PA [address] [place] [id number] PCP - General Emergency Medicine 12/08/21 Yulisa Estrada, RN Registered Nurse 12/10/17 Trina Aguirre, RN Registered Nurse 07/01/18 Trina Aguirre, RN Registered Nurse 09/17/18 Josseline Giraldo Agile Test Lead Addiction Medicine 02/03/20 Parish Mcfarland MD [address] [place] [id number] Consulting Physician Pulmonary Disease 04/11/23
--- OUTSIDE RECORDS SUMMARY | 2024-03-20 12:34 | XMS_ITS ---
Author Organization [facility] Address [address] [place] [address] Phone Care Team Providers Care Car Spotter Name Role Phone Unavailable Unavailable Unavailable Plan of Treatment Instructions to patient Intervention and counseling on cessation of tobacco use : Patient recieved smoking cessation handout Last Documented On 0 3:18PM ; [facility] Assessments Includes: Assessments for all patient encounters Findings Encounter Date Chronic pain syndrome PAIN MANAGEMENT NE W CONSULT with TIANNAANDRA JONES [facility] 04/24/2019 Last Documented On 0 3:32PM ; [facility] Lumbar radiculopathy PAIN MANAGEMENT NEW CONSULT with TIANNA JONES [facility] 04/24/2019 Last Documented On 0 3:32PM ; [facility] Opioid abuse - continuous PAIN MANAGEMEN T NEW CONSULT with TIANNA JOENS [facility] 04/24/2019 Last Documented On 0 3:32PM ; [facility] Instructions Includes: Instructions for all patient encounters Instructions to patient Intervention and counseling on cessation of tobacco use : Patient recieved smoking cessation handout Last Documented On 0 3:18PM ; [facility] Medical Equipment - Implanted Devices Includes: Current and historical Devices No Medical Equipment Recorded Medications Includes: Current and historical Medications Current Medications (continue as prescribed) lamoTRIgine 100 MG Oral Tablet 04/24/2019 Provider: Diagnosis: Last Documented On 0 3:17PM By Louise SANDOVAL ; [facility] clonazePAM 2 MG Oral Tablet 04/24/2019 Provider: Diagnosis: Last Documented On 0 3:17PM By Louise SANDOVAL ; [facility] traZODone HCl 100 MG Oral Tablet 04/24/2019 Provider : Diagnosis: Last Documented On 0 3:17PM By Louise SANDOVAL ; [facility] Gabapentin 600 MG Oral Tablet 04/24/2019 Provider: Diagnosis: Last Documented On 0 3:54PM By Louise SANDOVAL ; [facility] Narcan 4 MG/0.1ML Nasal Liquid 04/24/2019 Provider: TIANNA SMITH Diagnosis: as directed Last Documented On 0 4:26PM By TIANNA SMITH ; [facility] Gabapentin 100 MG Oral Capsule 04/24/2019 Provider: TIANNA SMITH Diagnosis: Spinal stenosis, lumbar region with neurogenic claudication 2 po TIDto be taken with cur rent dose Last Documented On 0 4:26PM By TIANNA SMITH ; [facility] Medications Administered Includes: Administered Medications in patient's chart No Administered Medications Recorded Results Includes: Results from 03/20/2023 through 03/20/2024 No Results Recorded For Specified Dates History of Present Illness History of Present Illness not supported for this document type No History of Present Illness Recorded Social History Description Last Updated 04/24/2019 Last Documented On 0 3:32PM ; [facility] No consumption of alcohol 04/24/2019 Last Documented On 0 3:32PM ; [facility] Tobacco use 04/24/2019 Last Documented On 0 3:32PM ; [facility] Using marijuana 04/24/2019 Last Documented On 0 3:32PM ; [facility] Smoking status : Current everyday smoker 04/24/2019 Last Documented On 0 3:32PM ; [facility] Medical History Includes: Medical History in patient's chart Description Last Updated SCS placement 2019 04/24/2019 Last Documented On 0 3:32PM ; [facility] History of arthritis 04/24/2019 Last Documented On 0 3:32PM ; [facility] History of diabetes mellitus 04/24/2019 Last Documented On 0 3:32PM ; [facility] History of hypertension 04/24/2019 Last Documented On 0 3:32PM ; [facility] No history of cancer 04/24/2019 Last Documented On 0 3:32PM ; [facility] No history of chronic obstructive pulmon josé luis disease 04/24/2019 Last Documented On 0 3:32PM ; [facility] No history of convulsive disorder 2019 Last Documented On 0 3:32PM ; [facility] No history of sexually transmitted disea se 04/24/2019 Last Documented On 0 3:32PM ; [facility] No history of stroke syndrome 04/24/2019 Last Documented On 0 3:32PM ; [facility] No reported cardiovascular symptoms 04/12 Last Documented On 0 3:32PM ; [facility] No reported easy bleeding 04/24/2019 Last Documented On 0 3:32PM ; [facility] No reported recurrent infections 020 Last Documented On 0 3:32PM ; [facility] Family History Includes: Family History in patient's chart No Family History Recorded Review of Systems Review of Systems not supported for this document type No Review of Systems Recorded Mental Status Description Oriented to time, place, and person Anxiety Functional Status No Functional Status Recorded Physical Exam Physical Exam not supported for this document type No Physical Exam Recorded Allergies Includes: Active, inactive, and resolved Allergies No Known Allergies Insurance Includes: Active Insurance Policies Plan Name Member ID Group # Subscriber Relationship Effect aviva Dates 1 - [facility] [id number] HIEN Chavez 2 - MEDICAID [facility] [id number] HIEN Chavez Clinical Notes Includes: Signed Clinical Notes starting from 03/03/2022 No Clinical Notes Recorded
--- OUTSIDE RECORDS SUMMARY | 2024-03-20 12:34 | XMS_ITS | Clinical Summary ---
Author Organization [facility] Address [address] [place] [address] Phone Care Team Providers Care Certified Hearing Instrument Dispenser Name Role Phone Unavailable Unavailable Unavailable Reason [...] On 0 3:17PM By Louise SANDOVAL ; [facility] clonazePAM 2 MG Oral Tablet 04/24/2019 Provider: Diagnosis: Last Documented On 0 3:17PM By Louise SANDOVAL ; [facility] traZODone HCl 100 MG Oral Tablet 04/24/2019 Provider : Diagnosis: Last Documented On 0 3:17PM By Louise SANDOVAL ; [facility] Gabapentin 600 MG Oral Tablet 04/24/2019 Provider: Diagnosis: Last Documented On 0 3:54PM By Louise SANDOVAL ; [facility] Narcan 4 MG/0.1ML Nasal Liquid 04/24/2019 Provider: TIANNA SMITH Diagnosis: as directed Last Documented On 0 4:26PM By TIANNA SMITH ; [facility] Gabapentin 100 MG Oral Capsule 04/24/2019 Provider: TIANNA SMITH Diagnosis: Spinal stenosis, lumbar region with neurogenic claudication 2 po TIDto be taken with cur rent dose Last Documented On 0 4:26PM By TIANNA SMITH ; [facility] Medications Administered Includes: Administered Medications [...] Subscriber Relationship Effect aviva Dates 1 - [employer] [facility] [id number] HIEN Chavez 2 - MEDICAID [facility] [id number] HIEN Chavez Clinical Notes Includes: Clinical Notes from this encounter No Clinical Notes Recorded
[2024-03-20] MEDS: KETOROLAC (*BKC) 60 MG/2 ML VIAL IM (13:09)
--- NOTE | 2024-03-20 13:13 | ED.LOWEXIN ---
HPI - Extremity Injury (Lower) General Chief Complaint: Extremity Injury, Lower Stated Complaint: LEFT FOOT INJURY Time Seen by Provider: 03/20/24 12:41 Source: patient Mode of arrival: ambulatory Limitations: no limitations History of Present Illness HPI Narrative: this is a 38-year-old male that had an injury approximately 10 days ago and re-injured his left foot and ankle with some bruising and swelling rates his pain about a 6/10 has good range of motion with no numbness or tingling. complaint: ankle injury and foot injury Onset (ago): day(s) Injury: Left: ankle ( bruising and swelling) and foot ( bruising and swelling) Place: home Severity: moderate Severity scale (1-10): 6 Relieving factors: nothing Exacerbating factors: weight bearing, movement and palpation Related Data Home Medications ?Medication ?Instructions ?Recorded ?Confirmed ?Last Taken ?Type alprazolam 2 mg tablet 2 mg PO TID PRN anxiety 09/20/21 02/03/24 02/03/24 History insulin glargine 100 unit/mL (3 30 unit subcut QHS 09/20/21 02/03/24 02/02/24 History mL) subcutaneous pen (Basaglar KwikPen U-100 Insulin) insulin lispro 100 unit/mL 1 sliding scale dose subcut 09/20/21 02/03/24 02/03/24 History subcutaneous pen USEASDIRECTD paroxetine HCl 40 mg tablet (Paxil) 40 mg PO DAILY 09/20/21 02/03/24 02/03/24 History atorvastatin 40 mg tablet 40 mg PO QPM 02/03/24 02/03/24 02/03/24 History clonazepam 1 mg tablet 1 mg PO DAILY 02/03/24 02/03/24 02/03/24 History empagliflozin 25 mg tablet 25 mg PO DAILY 02/03/24 02/03/24 02/03/24 History (Jardiance) Allergies Allergy/AdvReac Type Severity Reaction Status Date / Time No Known Allergies Allergy Verified 03/20/24 12:31 Review of Systems Review of Systems: All systems reviewed & are unremarkable except as noted in HPI and below PMFSH Past Medical History Medical History (Updated 03/20/24 @ 13:16 by Aung Olmos MD) Opioid use disorder Drug abuse Diabetes Surgical History Surgical History History of back surgery Family History Family History Father Diabetes mellitus Social History Social History Smoking status: Current every day smoker Substance use: current Substance use type: opiates Gender identity (if verbalized by the patient): Male Exam Const: General: healthy appearing and no acute distress Nutritional Appearance: well nourished Orientation/consciousness: patient oriented x3 Limitations: no limitations Chest: Chest palpation & inspection: normal inspection of the chest Resp: Effort & Inspection: normal respiratory effort Auscultation: clear to auscultation bilaterally Cardio: Rate: regular rate Rhythm: regular rhythm Skin: Wounds: wounds noted Other: Bruising anterior left foot Course Course Emergency Course: patient received 60mg IM Toradol and x-rays performed showed no acute fractures karthik wrap applied. Vital Signs Vital signs: Vital Signs Temperature 36.9 C 03/20/24 12:30 Pulse Rate 110 H 03/20/24 12:30 Respiratory Rate 17 03/20/24 12:30 Blood Pressure 148/85 H 03/20/24 12:30 Pulse Oximetry 98 03/20/24 12:30 Oxygen Delivery Room Air 03/20/24 12:30 Temperature 36.9 C 03/20/24 12:30 Pulse Rate 110 H 03/20/24 12:30 Respiratory Rate 17 03/20/24 12:30 Blood Pressure 148/85 H 03/20/24 12:30 Pulse Oximetry 98 03/20/24 12:30 Oxygen Delivery Room Air 03/20/24 12:30 Critical Care Time Critical Care Time Critical Care Time: No Discharge Plan Discharge Clinical Impression: Ankle sprain and strain Patient Disposition: Home, Self-Care Condition: Stable Instructions: Antibiotic Form Additional Instructions: Advised take Tylenol or Motrin continue Karthik wrap and follow up with primary within a week further evaluation treatment. Patient Language: Mongolian Prescriptions: No Action alprazolam 1 mg tablet 1 mg PO BID Qty: 6 0RF clonidine HCl 0.1 mg tablet 0.1 mg PO Q12H PRN (Reason: withdrawal symptoms) Qty: 14 0RF atorvastatin 40 mg tablet 40 mg PO QPM clonazepam 1 mg tablet 1 mg PO DAILY Jardiance 25 mg tablet 25 mg PO DAILY paroxetine HCl [Paxil] 40 mg tablet 40 mg PO DAILY alprazolam 2 mg tablet 2 mg PO TID PRN (Reason: anxiety) insulin lispro 100 unit/mL insulin pen 1 sliding scale dose subcut USEASDIRECTD insulin glargine [Basaglar KwikPen U-100 Insulin] 100 unit/mL (3 mL) insulin pen 30 unit subcut QHS Follow-up/Referrals: UNKNOWN,DOCTOR [Primary Care Provider] - Time of Disposition: 13:15
--- OUTSIDE RECORDS SUMMARY | 2024-03-20 13:26 | XMS_ITS | Encounter Summary ---
Author Organization [facility] Healthcare Address [address] [place] [address] Care Team Providers Care Band Singer Name Role Phone Austin Bae NP Primary Care Provider + Yulisa Estrada RN Unavailable Margie vailable Trina Aguirre RN Unavailable Unavailab Trina Veras RN Unavailable Unavailab le Aretha, Physician Primary Care Provider [phone] Austin Bae CLINICAL STATISTICS MANAGER Primary Care Provider + No, Physician Primary Care Provider [phone] Josseline Giraldo Unavailable Unavailable Larry Headley MD Primary Care Provider [phone] Tere Conklin Primary Care Provider [phone] Parish Mcfarland MD Unavailable Encounter Details Date Type Department Care Team (Late st Contact Info) Description 08/19/[address] [facility] [address] [place] [address] Trina Aguirre RN Social History Tobacco Use Types Packs/Day Years Used Date Smoking Tobacco: Every Day Cigarettes Smokeless Tobacco: Never Alcohol Use Standard Drinks/Week Comments No 0 (1 standard drink = 0.6 oz pur e alcohol) Sex and Gender Information Value Date Recorded Sex Assigned at Not on file Legal Sex Male 1:12 PM FOOD AND NUTRITION SUPERVISOR Gender Identity Not on file Sexual Orientation Not on file documented as of this encounter Plan of Treatment Not on file documented as of this encounter Visit Diagnoses Not on filedocumented in this encounter Additional Health Concerns Infection Onset Date Last Indicated Resolved Time COVID: Suspected 04/08/2023 04/08/2023 04/08/2023 8:23 PM FOOD AND NUTRITION SUPERVISOR Influenza, adult 04/08/2023 04/08/2023 04/15/2023 3:05 AM FOOD AND NUTRITION SUPERVISOR documented as of this encounter Care Teams Band Singer Relationship Specialty Start Date End Date Austin Bae NP [address] [place] [address] [address] [place] [address] PCP - General 06/06/17 10/14/18 No, Physician PCP - General 10/15/18 10/15/18 Austin Bae NP [address] [place] [address] [address] [place] [address] PCP - General 10/16/18 10/16/18 No, Physician PCP - General 10/17/18 06/13/21 Larry Headley MD [address] [place] [address] [address] [place] [address] PCP - General Endocrinology 06/14/21 12/07/21 Tere Conklin PA [address] [place] [address] PCP - General Emergency Medicine 12/08/21 Yulisa Estrada, SANAZ Registered Nurse 12/10/17 Trina Aguirre, RN Registered Nurse 07/01/18 Trina Aguirre, RN Registered Nurse 09/17/18 Josseline Giraldo Oncology Patient Navigator Addiction Medicine 02/03/20 Parish Mcfarland MD [address] [place] [address] [address] [place] [address] Consulting Physician Pulmonary Disease 04/11/23 documented as of this encounter
--- OUTSIDE RECORDS SUMMARY | 2024-03-20 13:26 | XMS_ITS | Encounter Summary ---
Author Organization [facility] Healthcare Address [address] [place] [address] Care Team Providers Care Magnetic Resonance Technologist Name Role Phone Austin Bae NP Primary Care Provider + Yulisa Estrada RN Unavailable Margie vailable Trina Aguirre RN Unavailable Unavailab Trina Veras RN Unavailable Unavailab le Aretha, Physician Primary Care Provider [phone] Austin Bae SYSTEM CONSULTANT Primary Care Provider + No, Physician Primary Care Provider [phone] Josseline Giraldo Unavailable Unavailable Larry Headley MD Primary Care Provider Tere Conklin Primary Care Provider [phone] Parish Mcfarland MD Unavailable Encounter Details Date Type Department Care Team (Late st Contact Info) Description 08/19/2018 Telephone [facility] [address] [place] [address] Trina Aguirre RN Social History Tobacco Use Types Packs/Day Years Used Date Smoking Tobacco: Every Day Cigarettes Smokeless Tobacco: Never Alcohol Use Standard Drinks/Week Comments No 0 (1 standard drink = 0.6 oz pur e alcohol) Sex and Gender Information Value Date Recorded Sex Assigned at Not on file Legal Sex Male 1:12 PM EMERGENCY VEHICLE OPERATOR Gender Identity Not on file Sexual Orientation Not on file documented as of this encounter Plan of Treatment Not on file documented as of this encounter Visit Diagnoses Not on filedocumented in this encounter Additional Health Concerns Infection Onset Date Last Indicated Resolved Time COVID: Suspected 04/08/2023 04/08/2023 04/08/2023 8:23 PM EMERGENCY VEHICLE OPERATOR Influenza, adult 04/08/2023 04/08/2023 04/15/2023 3:05 AM EMERGENCY VEHICLE OPERATOR documented as of this encounter Care Teams Magnetic Resonance Technologist Relationship Specialty Start Date End Date Austin Bae NP [address] [place] [address] [address] [place] [address] PCP - General 06/06/17 10/14/18 No, Physician PCP - General 10/15/18 10/15/18 Austin Bae NP [address] [place] [address] [address] [place] [address] PCP - General 10/16/18 10/16/18 No, Physician PCP - General 10/17/18 06/13/21 Larry Headley MD [address] [place] [address] [address] [place] [address] PCP - General Endocrinology 06/14/21 12/07/21 Tere Conklin PA [address] [place] [address] PCP - General Emergency Medicine 12/08/21 Yulisa Estrada, SANAZ Registered Nurse 12/10/17 Trina Aguirre, RN Registered Nurse 07/01/18 Trina Aguirre, RN Registered Nurse 09/17/18 Josseline Giraldo Police Crime Scene Technician Addiction Medicine 02/03/20 Parish Mcfarland MD [address] [place] [address] [address] [place] [address] Consulting Physician Pulmonary Disease 04/11/23 documented as of this encounter
--- OUTSIDE RECORDS SUMMARY | 2024-03-20 13:26 | XMS_ITS | Clinical Summary ---
Author Organization [facility] Address [address] [place] [address] Phone Care Team Providers Care Manager Operations Name Role Phone Unavailable Unavailable Unavailable Reason [...] On 0 3:17PM By Louise SANDOVAL ; [facility] clonazePAM 2 MG Oral Tablet 04/24/2019 Provider: Diagnosis: Last Documented On 0 3:17PM By Louise SANDOVAL ; [facility] traZODone HCl 100 MG Oral Tablet 04/24/2019 Provider : Diagnosis: Last Documented On 0 3:17PM By Louise SANDOVAL ; [facility] Gabapentin 600 MG Oral Tablet 04/24/2019 Provider: Diagnosis: Last Documented On 0 3:54PM By Louise SANDOVAL ; [facility] Narcan 4 MG/0.1ML Nasal Liquid 04/24/2019 Provider: TIANNA SMITH Diagnosis: as directed Last Documented On 0 4:26PM By TIANNA SMITH ; [facility] Gabapentin 100 MG Oral Capsule 04/24/2019 Provider: TIANNA SMITH Diagnosis: Spinal stenosis, lumbar region with neurogenic claudication 2 po TIDto be taken with cur rent dose Last Documented On 0 4:26PM By TIANNA SMITH ; [facility] Medications Administered Includes: Administered [...] Subscriber Relationship Effect aviva Dates 1 - [place] [employer] [facility] [id number] HIEN Chavez 2 - MEDICAID [facility] [id number] HIEN Chavez Clinical Notes Includes: Clinical Notes from this encounter No Clinical Notes Recorded
--- OUTSIDE RECORDS SUMMARY | 2024-03-20 13:27 | XMS_ITS | Clinical Summary ---
Author Organization [facility] Address [address] [place] [address] Phone Care Team Providers Care Office Engineer Name Role Phone Brigida Morton APRN, MARIA Primary Care Provider Rich Gaston APRN, CNP Unavailable [phone] Allergies No known active allergies Medications ALPRAZolam [...] Department Care Team Description 02/26/2024 3:15 PM CLERK GENERAL Office Visit [facility] [address] [place] [address] Rich Gaston, ANDREA, LANGUAGE TUTOR Erectile dysfunction due to arterial insufficiency (Primary [...] Comments Blood Pressure 112/74 02/26/2024 3:15 PM CLERK GENERAL Pulse 77 02/26/2024 3:15 PM CLERK GENERAL Temperature - - Respiratory Rate 20 02/26/2024 3:15 PM CLERK GENERAL Oxygen Saturation 96% 02/26/2024 3:15 PM CLERK GENERAL Inhaled Oxygen Concentration - - Weight 129.4 kg (285 lb 3.2 oz) 02/26/2024 3:15 PM CLERK GENERAL Height 190.5 cm (6' 3 ) 02/26/2024 3:15 PM CLERK GENERAL Body Mass Index 35.65 02/26/2024 3:15 PM CLERK GENERAL Plan of Treatment Upcoming Encounters Date Type Department Care Team (Late st Contact Info) Description 04/07/2024 1:30 PM CLERK GENERAL Office Visit [facility] - Pulmonology & Sleep Medicine [facility] [address] [place] [address] Jacky Huffman MD [address] [facility] [place] [address] 04/28/2024 11:15 AM CDT Office Visit [facility] [address] [place] [address] Rich Gaston, [employer] OPERATIONS SUPERINTENDENT, LANGUAGE TUTOR [address] [place] [address] 05/15/2024 2:00 PM CDT Office Visit [facility] - Neurology [facility] [address] [facility] [address] Miguel Jerome MD [address] [place] [address] Health Maintenance Due Date Last Done Comments [...] A IGM ANTIBODY NON DETECTED NON DETECTED [facility] [id number] B 08/22/2022 1:46 AM CDT [facility] Comment: IGM Antibodies to HAV not detected. Does not exclude early acute or recovered HAV infection. HEP B CORE AB (IGM) NON DETECTED NON DETECTED [facility] [id number] B 08/22/2022 1:46 AM CDT [facility] Comment:IGM anti-HBC not det ected. Does not exclude the possibility of exposure to or infection with HBV. HEPATITIS B SURFACE ANTIGEN NON DETECTED NON DETECTED [facility] [id number] B 08/22/2022 1:46 AM CDT [facility] Comment:A nonreactive test r esult does not exclude the possibility of exposure to or infection with Hepatitis B virus. A nonreactive test result in individuals with prior exposure to hepatitis B may be due to antigen levels below the detection limit of this assay or lack of antigen reactivity to the antibodies in this assay. hepatitis C antibody 6.76(H) <1 S/CO [facility] [id number] B 08/22/2022 1:46 AM CDT [facility] Comment: Signal/Cutoff ratio < 0.79 is Nondetected Signal/Cutoff ratio 0.80-0.99 is Grayzone Signal/Cutoff ratio > 0.99 is Detected Supplemental assays are recommended if signal/cutoff ratio is >/=1.00. Signal/cutoff ratio result >/= 5.00 is 97% predictive of positivity for recombinant immunoblot assay (RIBA) and will be reported to the [place] Department of Public [facility] as required. Result faxed to the [facility] Blood Venipuncture / Unknown 08/21/2022 10:21 AM CDT 08/21/2022 11:23 AM CDT us Valdez Echols MD HEMATOLOGY ORDERABLES Final Res ult [facility] [address] [place] [address], [place] from Last 3 Months or Most Recently Relevant to Health Maintenance Insurance MEDICAID [facility] Care Teams Office Engineer Relationship Specialty Start Date End Date Brigida Morton APRN, LANGUAGE TUTOR [address] [place] [address] PCP - General Advanced Practice Nurse 01/17/24 Rich Gaston APRN, MARIA [address] [place] [address] Nurse Practitioner Advanced Practice Nurse 02/20/24
--- OUTSIDE RECORDS SUMMARY | 2024-03-20 13:27 | XMS_ITS | Clinical Summary ---
Author Organization [facility] Address [address] [place] [address] Phone Care Team Providers Care Guinea Pig Breeder Name Role Phone Unavailable Unavailable Unavailable Reason [...] Last Documented On 0 3:17PM By Louise SANDVOAL ; [facility] clonazePAM 2 MG Oral Tablet 04/24/2019 Provider: Diagnosis: Last Documented On 0 3:17PM By Louise SANDOVAL ; [facility] traZODone HCl 100 MG Oral Tablet 04/24/2019 Provider : Diagnosis: Last Documented On 0 3:17PM By Louise SANDOVAL ; [facility] Gabapentin 600 MG Oral Tablet 04/24/2019 Provider: Diagnosis: Last Documented On 0 3:54PM By Louise SANDOVAL ; [facility] Narcan 4 MG/0.1ML Nasal Liquid 04/24/2019 Provider: TIANNA SMITH Diagnosis: as directed Last Documented On 0 4:26PM By TIANNA SMITH ; [facility] Gabapentin 100 MG Oral Capsule 04/24/2019 Provider: TIANNA SMITH Diagnosis: Spinal stenosis, lumbar region with neurogenic claudication 2 po TIDto be taken with cur rent dose Last Documented On 0 4:26PM By TIANNA SMITH ; [facility] Medications Administered Includes: Administered Medications [...] Subscriber Relationship Effect aviva Dates 1 - [employer] [facility] [id number] HIEN Chavez 2 - MEDICAID [facility] [id number] HIEN Chavez Clinical Notes Includes: Clinical Notes from this encounter No Clinical Notes Recorded
--- OUTSIDE RECORDS SUMMARY | 2024-03-20 13:27 | XMS_ITS | Referral Summary ---
Author Organization [facility] Address [address] [place] [id number] Care Team Providers Care Visual Educator Name Role Phone Yulisa Estrada RN Unavailable Margie Trina Hernandez RN Unavailable Unavailab Trina Veras RN Unavailable Unavailab Josseline Espino Unavailable Unavailable Tere Conklin Primary Care Provider [phone] Parish Mcfarland MD Unavailable Encounters Date Type Department Care Team Description 02/28/2024 Telephone [facility] Medical [facility] Diabetes Endocrine Care at [address] [address] Nasra Rendon, GWENDOLYN 02/21/2024 Telephone [facility] Diabetes Endocrine Care at [address] [address] Nasra Rendon, GWENDOLYN 02/21/2024 11:00 AM CORNETIST Office Visit [facility] Medical [facility] Diabetes Endocrine Care at [address] [address] Nasra Rendon, MARKETING INFORMATION MANAGER Type 2 diabetes mellitus with hypoglycemia without coma, with long-term current use of insulin (HCC) (Primary Dx); Mixed diabetic hyperlipidemia associated with type 2 diabetes mellitus (HCC); Class 1 obesity due to excess calories with serious comorbidity and body mass index (BMI) of 33.0 to 33.9 in adult 01/09/2024 Telephone [facility] Medical Group Diabetes Endocrine Care at [address] [place] [address] Nasra Rendon, MARKETING INFORMATION MANAGER from Last 3 Months Allergies No known [...] mg by mouth daily Verified by the [facility] Active insulin glargine (LANTUS) 100 unit/mL (3 [...] coma, with long-term current use of insulin ([facility]) 1 Device continuously E11.65 6 each 4 02/20/19 25 025 Active flash glucose scanning reader miscIndications: Type 2 diabetes mellitus with hypoglycemia without coma, with long-term current use of insulin ([facility]) 1 Device continuously To read freestyle [...] 08/07/2023 Assessment & Plan (02/21/2024 12:44 PM CORNETIST): This is a chronic condition which continues [...] 07/10/2019 Assessment & Plan (02/21/2024 12:43 PM CORNETIST): This is a chronic condition which is [...] to start with PCP, and recommended the [facility] medical group Assessment & Plan (04/08/2020 4:07 PM CORNETIST): History of hyperlipidemia Patient was not able [...] 10/25/2018 Assessment & Plan (02/21/2024 12:51 PM CORNETIST): This is a chronic condition which is [...] severe hypoglycemia. Monitor blood sugar continuously with Lumafityle christal cgm. Encouraged annual eye exam. Monofilament [...] fenofibrate Assessment & Plan (01/02/2023 11:37 AM CORNETIST): Diagnosed in September 2018 With blood sugars [...] basis. Assessment & Plan (04/08/2020 4:06 PM CORNETIST): Diagnosed in September 2018 With blood sugars [...] : needs exam Plan: Refer patient to store administrator. Patient asked to start seeing PCP Continue [...] : needs exam Plan: Refer patient to store administrator. Patient asked to start seeing PCP Continue [...] eliecer associated with type 1 diabetes mellitus ([facility]) 04/08/2023 08/07/2023 Hyponatremia 10/15/2018 08/07/2023 Diabetic ketoacidosis withou t coma associated with diabetes mellitus due to underlying condition ([facility]) 10/15/2018 08/07/2023 Type 2 diabetes mellitus [...] drink = 0.6 oz pur e alcohol) [facility] Utilities Answer Date Recorded In the past 12 months has th e [employer], gas, oil, or water [employer] threatened to shut off services in your home? No 04/10/2023 Social Connection and Isolat ion Panel [NHANES] Answer Date Recorded In a typical week, how many times do you talk on the phone with family, friends, or neighbors? Three times a week 04/10/2023 How often do you get togethe r with friends or relatives? More than three times a week 04/10/2023 Attends [employer] Not on file 04/10 Active Member [...] place to sleep or slept in a long-term (including now)? No 04/10/2023 Personal Safety Answer Date Recorded Have you ever been in or are you currently in a harmful physical or emotional relationship or is someone making you feel afraid or unsafe? Denies 08/13/2023 Sex and Gender Information Value Date Recorded Sex Assigned at Not on file Legal Sex Male 1:12 PM CORNETIST Gender Identity Not on file Sexual Orientation Not on file Last Filed Vital Signs Vital Sign Reading Time Taken Comments Blood Pressure 128/76 02/21/2024 11:12 AM CORNETIST Pulse 72 08/13/2023 11:00 AM CDT Temperature 36.3 C (97.4 F) 08/13/2023 8:51 AM CDT Respiratory Rate 16 08/13/2023 8:51 AM CDT Oxygen Saturation 94% 08/13/2023 11:00 AM CDT Inhaled Oxygen Concentration - - Weight 121 kg (266 lb 11.2 oz) 02/21/2024 11:12 AM CORNETIST Height 190.5 cm (6' 3 ) 02/21/2024 11:12 AM CORNETIST Body Mass Index 33.34 02/21/2024 11:12 AM CORNETIST Plan of Treatment Not on file Medical Devices Implanted Type Area Veneer Stock Grader Device Identifier Shelf Expiration Date Model / Serial / Lot [employer] 1192 Patel-Lock [place] Lead - [id number] Implanted:Qty: 2 on 12/26/2018 by Mert Garcia MD at [facility] 05/22/2020 1192 / / [id number] [employer] 3186ans Octrode 60cm 8 Electrode Lead Percutaneous Kit Neurostimulator - [id number] - [id number] Implanted:Qty: 1 on 12/26/2018 by Mert Garcia MD at [facility] 05/01/2020 [id number] / [id number] / [employer] 3186ans Octrode 60cm 8 Electrode Lead Percutaneous Kit Neurostimulator - [id number] - [id number] Implanted:Qty: 1 on 12/26/2018 by Mert Garcia MD at [facility] [employer] 04/28/2020 [id number] / [id number] / [employer] 3660 Contrlsys Proclaim Elite 4.95cmx5.55cm 5 Implantable Pulse Tonic - [id number] - [id number] Implanted:Qty: 1 on 12/26/2018 by Mert Garcia MD at [facility] 11/14/2020 3660 CONTRLSYS / [id number] / Description:[email or web address] Procedures Procedure Name Priority Date/Time Associated Diagnosis Comments POCT HEMOGLOBIN A1C Routine 02/21/2024 1 1:15 AM CORNETIST Type 2 diabetes mellitus with hypoglycemia without coma, with long-term current use of insulin (HCC) POCT GLUCOSE Routine 02/21/2024 11:15 AM CORNETIST Type 2 diabetes mellitus with hypoglycemia without [...] THYROID FUNCTION CASCADE Routine 04/09/2023 3:43 PM CORNETIST HEPATITIS PANEL, ACUTE Routine 10/15/2018 9:55 AM CDT from Last 3 Months or Most Recently Relevant to Health Maintenance Results * POCT hemoglobin A1c (02/21/2024 11:15 AM CORNETIST) Hemoglobin A1C, POC 5.6 4.0 - 5.6 % Blood 02/21/2024 11:1 5 AM CORNETIST Nasra Rendon NP POINT OF CARE TEST ORDERABLES F inal Result * POCT glucose (02/21/2024 11:15 AM CORNETIST) Glucose Blood, POC 114 mg/dL Blood 02/21/2024 11:1 5 AM CORNETIST Nasra Rendon NP POINT OF CARE TEST [...] BLOOD ORDERABLES Johana l Result [facility] Department [place] [address] * (ABNORMAL) Albumin Creatinine Ratio, Urine (08/09/2023 [...] LAB URINE ORDERABLES Final Resu lt SHERRI [address] [address] Department [place] [address] * (ABNORMAL) Lipid panel (08/09/2023 9:00 AM [...] ORDERABLES Final Resu lt Performing Organization Address City/[facility]/ZIP Co de Phone Number [facility] [address] [facility] Department of Laboratories [place], [place] [id number] * Thyroid Function [place] (04/09/2023 3:43 PM CORNETIST) TSH 0.45 0.30 - 4.20 mcIUnit/mL [facility] ([place]) Blood 04/09/2023 3:43 PM CORNETIST 04/09/2023 4:33 PM CORNETIST Ronnie Barney MD LAB BLOOD ORDERABLES Final Resu lt Performing Organization Address City/[facility]/ZIP Co de Phone Number [facility] ([place]) [facility] Department [place] [address] * (ABNORMAL) Hepatitis panel, acute (10/15/2018 9:55 AM CDT) Pathologist [facility] Hep A IgM Negative Negative [facility]RI [facility] ([place]) Comment:Testing performed by : [address] [address] Hep B core IgM Negative Negative [facility] ([place]) Comment:Testing performed by : [address] [address] Hep C Ab Positive(A) Negative SHERRI A ([place]) Comment:Testing performed by : [address] [address] HepBsAg Nonreactive Nonreactive [facility] ([place]) Comment:Testing performed by : [address] [address] Blood specimen (specimen) 10/15/2018 9:55 AM CDT 10/15/2018 1:53 PM CDT Amna Farley MD LAB MICROBIOLOGY - GENER AL ORDERABLES Final Result [facility] ([facility]) [facility] [place] [address] from Last 3 Months or Most Recently Relevant to Health Maintenance Insurance [facility] Advance Directives For more information, please contact: [phone] * Full Code (Latest Code Status on File) Date Activated Date Inactivated Comments 04/08/2023 11:24 PM 04/11/2023 8:05 PM * Full Code Date Activated Date Inactivated Comments 04/08/2023 10:02 PM 04/08/2023 11:24 PM * Full Code Date Activated Date Inactivated Comments 10/15/2018 8:23 AM 10/18/2018 9:10 PM * Full Code Date Activated Date Inactivated Comments 10/02/2018 6:19 PM 10/04/2018 5:36 PM Care Teams Visual Educator Relationship Specialty Start Date End Date Tere Conklin PA [address] [place] [id number] PCP - General Emergency Medicine 12/08/21 Yulisa Estrada, RN Registered Nurse 12/10/17 Trina gAuirre, RN Registered Nurse 07/01/18 Trina Aguirre, RN Registered Nurse 09/17/18 Josseline Giraldo Hot Dimpling Machine Operator Addiction Medicine 02/03/20 Parish Mcfarland MD [address] [place] [id number] Consulting Physician Pulmonary Disease 04/11/23
--- OUTSIDE RECORDS SUMMARY | 2024-03-20 13:27 | XMS_ITS | Continuity of Care Document ---
Author Organization [facility] Address [address] [place] [address] Phone Care Team Providers Care Automation Control Integrator Name Role Phone Adi Pierson MD Unavailable [...] Diagnoses Date Provider Providers Copied on Encounter Alea, [address], [place], [place], [id number] , tel: [phone] [facility] No Information 6 Dangelo Joshi. [address] [place] [address], [facility] [address] , [place], [place], [id number] , . tel: [phone] Referring Provider: Adi Pierson, [address] [place] [address] [address] , [place], [address] . tel:[phone] [employer], [address], [place], [place], [id number] , tel: [phone] [facility] Nausea and vomitingHepatitis C 5 Matthew Sanchez. [address], [facility] [address], [place], [address], . tel: [phone] Referring Provider: Daniel Castro, [address], [place], [address]. tel:[phone] Family History Family Member Type Diagnosis Age At Onset No Information Payers Payer name Insurance type Covered green party ID Authoriza titabitha(s) BCBS INACTIVE OUT OF STATE [id number] [facility] [id number] Social History Type Description Quantity Date Captured [...]
--- OUTSIDE RECORDS SUMMARY | 2024-03-20 13:27 | XMS_ITS | Clinical Summary ---
Author Organization [facility] Address [address] [place] [address] Phone Care Team Providers Care Guest Service Host Name Role Phone Unavailable Unavailable Unavailable Reason [...] On 0 3:17PM By Louise SANDOVAL ; [facility] clonazePAM 2 MG Oral Tablet 04/24/2019 Provider: Diagnosis: Last Documented On 0 3:17PM By Louise SANDOVAL ; [facility] traZODone HCl 100 MG Oral Tablet 04/24/2019 Provider : Diagnosis: Last Documented On 0 3:17PM By Louise SANDOVAL ; [facility] Gabapentin 600 MG Oral Tablet 04/24/2019 Provider: Diagnosis: Last Documented On 0 3:54PM By Louise SANDOVAL ; [facility] Narcan 4 MG/0.1ML Nasal Liquid 04/24/2019 Provider: TIANNA SMITH Diagnosis: as directed Last Documented On 0 4:26PM By TIANNA SMITH ; [facility] Gabapentin 100 MG Oral Capsule 04/24/2019 Provider: TIANNA SMITH Diagnosis: Spinal stenosis, lumbar region with neurogenic claudication 2 po TIDto be taken with cur rent dose Last Documented On 0 4:26PM By TIANNA SMITH ; [facility] Medications Administered Includes: Administered Medications [...] Member ID Group # Subscriber Relationship Effect vaiva Dates 1 - LE ROY SPARQCode [facility] [id number] HIEN Chavez 2 - MEDICAID [facility] [id number] HIEN Chavez Clinical Notes Includes: Clinical Notes from this encounter No Clinical Notes Recorded
--- OUTSIDE RECORDS SUMMARY | 2024-03-20 13:27 | XMS_ITS | Clinical Summary ---
Author Organization [facility] Address [address] [place] [address] Care Team Providers Care Muffler Hand Name Role Phone Yulisa Estrada RN Unavailable Margie Trina Hernandez RN Unavailable Unavailab Trina Veras RN Unavailable Unavailab Josseline Espino Unavailable Unavailable Tere Conklin Primary Care Provider [phone] Parish Mcfarland MD Unavailable Allergies No known [...] mg by mouth daily Verified by the [facility] Active insulin glargine (LANTUS) 100 [...] coma, with long-term current use of insulin ([facility]) 1 Device continuously E11.65 6 each 02/20/19 25 025 Active flash glucose scanning reader miscIndications: Type 2 diabetes mellitus with hypoglycemia without coma, with long-term current use of insulin ([facility]) 1 Device continuously To read freestyle [...] 08/07/2023 Assessment & Plan (02/21/2024 12:44 PM PEN AND PENCIL REPAIRER): This is a chronic condition which continues [...] 07/10/2019 Assessment & Plan (02/21/2024 12:43 PM PEN AND PENCIL REPAIRER): This is a chronic condition which is [...] to start with PCP, and recommended the [facility] medical group Assessment & Plan (04/08/2020 4:07 PM PEN AND PENCIL REPAIRER): History of hyperlipidemia Patient was not able [...] 10/25/2018 Assessment & Plan (02/21/2024 12:51 PM PEN AND PENCIL REPAIRER): This is a chronic condition which is [...] severe hypoglycemia. Monitor blood sugar continuously with Quantopianstyle christal cgm. Encouraged annual eye exam. Monofilament [...] fenofibrate Assessment & Plan (01/02/2023 11:37 AM PEN AND PENCIL REPAIRER): Diagnosed in September 2018 With blood sugars [...] basis. Assessment & Plan (04/08/2020 4:06 PM PEN AND PENCIL REPAIRER): Diagnosed in September 2018 With blood sugars [...] : needs exam Plan: Refer patient to graining press operator. Patient asked to start seeing PCP Continue [...] : needs exam Plan: Refer patient to graining press operator. Patient asked to start seeing PCP Continue [...] eliecer associated with type 1 diabetes mellitus ([facility]) 04/08/2023 08/07/2023 Hyponatremia 10/15/2018 08/07/2023 Diabetic ketoacidosis withou t coma associated with diabetes mellitus due to underlying condition ([facility]) 10/15/2018 08/07/2023 Type 2 diabetes mellitus wit h hyperglycemia, without long-term current use of insulin 10/08/2018 07/10/2019 Encounters Date Type Department Care Team Description 02/28/2024 Telephone [facility] Diabetes Endocrine Care at [address] [address] Nasra Rendon NP 02/21/2024 11:00 AM PEN AND PENCIL REPAIRER Office Visit [facility] Diabetes Endocrine Care at [address] [place] [address] Nasra Rendon NP Type 2 diabetes mellitus with hypoglycemia without coma, with long-term current use of insulin (HCC) (Primary Dx); Mixed diabetic hyperlipidemia associated with type 2 diabetes mellitus (HCC); Class 1 obesity due to excess calories with serious comorbidity and body mass index (BMI) of 33.0 to 33.9 in adult 02/21/2024 Telephone [facility] Diabetes Endocrine Care at [address] [place] [address] Nasra Rendon NP 01/09/2024 Telephone [facility] Diabetes Endocrine Care at [address] [place] [address] Nasra Rendon NP from Last 3 [...] drink = 0.6 oz pur e alcohol) [facility] Utilities Answer Date Recorded In the past 12 months has th e Rewarder, gas, oil, or water REES46 threatened to shut off services in your home? No 04/10/2023 Social Connection and Isolat ion Panel [NHANES] Answer Date Recorded In a typical week, how many times do you talk on the phone with family, friends, or neighbors? Three times a week 04/10/2023 How often do you get togethe r with friends or relatives? More than three times a week 04/10/2023 Attends Muslim Services Not on file 04/10 Active Member [...] place to sleep or slept in a nursing home (including now)? No 04/10/2023 Personal Safety Answer Date Recorded Have you ever been in or are you currently in a harmful physical or emotional relationship or is someone making you feel afraid or unsafe? Denies 08/13/2023 Sex and Gender Information Value Date Recorded Sex Assigned at Not on file Legal Sex Male 1:12 PM PEN AND PENCIL REPAIRER Gender Identity Not on file Sexual Orientation Not on file Obstetrics History Last Filed Vital Signs Vital Sign Reading Time Taken Comments Blood Pressure 128/76 02/21/2024 11:12 AM PEN AND PENCIL REPAIRER Pulse 72 08/13/2023 11:00 AM CDT Temperature 36.3 C (97.4 F) 08/13/2023 8:51 AM CDT Respiratory Rate 16 08/13/2023 8:51 AM CDT Oxygen Saturation 94% 08/13/2023 11:00 AM CDT Inhaled Oxygen Concentration - - Weight 121 kg (266 lb 11.2 oz) 02/21/2024 11:12 AM PEN AND PENCIL REPAIRER Height 190.5 cm (6' 3 ) 02/21/2024 11:12 AM PEN AND PENCIL REPAIRER Body Mass Index 33.34 02/21/2024 11:12 AM PEN AND PENCIL REPAIRER Plan of Treatment Health Maintenance Due Date [...] this topic Medical Devices Implanted Type Area Rock Mason Apprentice Device Identifier Shelf Expiration Date Model / Serial / Lot [employer] 1192 Patel-Lock Henderson Lead - [id number] Implanted:Qty: 2 on 12/26/2018 by Mert Garcia MD at [facility] [employer] 05/22/2020 1192 / / [id number] [employer] [id number] Octrode 60cm 8 Electrode Lead Percutaneous Kit Neurostimulator - [id number] - [id number] Implanted:Qty: 1 on 12/26/2018 by Mert Garcia MD at [facility] [employer] 05/01/2020 [id number] / [id number] / [employer] [id number] Octrode 60cm 8 Electrode Lead Percutaneous Kit Neurostimulator - [id number] - [id number] Implanted:Qty: 1 on 12/26/2018 by Mert Garcia MD at [facility] 04/28/2020 [id number] / [id number] / [facility] 3660 Contrlsys Proclaim Elite 4.95cmx5.55cm 5 Implantable Pulse Tonic - [id number] - [id number] Implanted:Qty: 1 on 12/26/2018 by Mert Garcia MD at [facility] 11/14/2020 3660 CONTRLSYS / [id number] / Description:[email or web address] Procedures Procedure Name Priority Date/Time Associated Diagnosis Comments POCT HEMOGLOBIN A1C Routine 02/21/2024 1 1:15 AM PEN AND PENCIL REPAIRER Type 2 diabetes mellitus with hypoglycemia without coma, with long-term current use of insulin (HCC) POCT GLUCOSE Routine 02/21/2024 11:15 AM PEN AND PENCIL REPAIRER Type 2 diabetes mellitus with hypoglycemia without [...] THYROID FUNCTION CASCADE Routine 04/09/2023 3:43 PM PEN AND PENCIL REPAIRER HEPATITIS PANEL, ACUTE Routine 10/15/2018 9:55 AM CDT from Last 3 Months or Most Recently Relevant to Health Maintenance Results * POCT hemoglobin A1c (02/21/2024 11:15 AM PEN AND PENCIL REPAIRER) Hemoglobin A1C, POC 5.6 4.0 - 5.6 % Blood 02/21/2024 11:1 5 AM PEN AND PENCIL REPAIRER us Nasra Rendon NP POINT OF CARE TEST ORDERABLES F inal Result * POCT glucose (02/21/2024 11:15 AM PEN AND PENCIL REPAIRER) Glucose Blood, POC 114 mg/dL Blood 02/21/2024 11:1 5 AM PEN AND PENCIL REPAIRER us Nasra Rendon NP POINT OF CARE [...] BLOOD ORDERABLES Johana l Result SHERRI MARIE ([place]) [address] [facility] Department [place] [address] * (ABNORMAL) Albumin Creatinine Ratio, Urine (08/09/2023 [...] LAB URINE ORDERABLES Final Resu lt SHERRI [address] Department [place] [address] * (ABNORMAL) Lipid panel (08/09/2023 9:00 AM [...] AM CDT 08/09/2023 2:35 PM CDT [facility]ative [facility] - 08/09/2023 3:22 PM CDT These lab test should be done fasting. This means do not eat or drink for at least 12 hours prior to getting your blood drawn. Has the patient been fasting for 8 hours or more?->Yes us Nasra Rendon DIVISION OPERATIONS MANAGER LAB BLOOD ORDERABLES Final Resu lt Performing Organization Address [facility]/ZIP Co de Phone Number [facility] [id number] [place] [address] [place] [address] * Thyroid Function Beaman (04/09/2023 3:43 PM PEN AND PENCIL REPAIRER) TSH 0.45 0.30 - 4.20 mcIUnit/mL SHERRI MARIE ([place]) Blood 04/09/2023 3:43 PM PEN AND PENCIL REPAIRER 04/09/2023 4:33 PM PEN AND PENCIL REPAIRER us Ronnie Barney MD LAB BLOOD ORDERABLES Final Resu lt Performing Organization Address City/[facility]/ZIP Co de Phone Number SHERRI [facility] ([place]) [address] [facility] Department [place] [address] * (ABNORMAL) Hepatitis panel, acute (10/15/2018 9:55 AM CDT) Hep A IgM Negative Negative SHERRI MARIE ([place]) Comment:Testing performed by : [facility], [address] [place] [address]., [address] Hep B core IgM Negative Negative SHERRI MARIE ([place]) Comment:Testing performed by : [facility], [address] [place] [address], [place]., [address] Hep C Ab Positive(A) Negative SHERRI A ([place]) Comment:Testing performed by : [facility], [address] [place] [address]., [address] HepBsAg Nonreactive Nonreactive SHERRI MARIE ([place]) Comment:Testing performed by : [facility], [address] [place] [address]., [address] Blood specimen (specimen) 10/15/2018 9:55 AM CDT 10/15/2018 1:53 PM CDT Amna Farley MD LAB MICROBIOLOGY - GENER AL ORDERABLES Final Result SHERRI FRANK ([place]) 1 [facility] Department [place] [address] from Last 3 Months or Most Recently Relevant to Health Maintenance Insurance [facility] Advance Directives For more information, please contact: [phone] * Full Code (Latest Code Status on File) Date Activated Date Inactivated Comments 04/08/2023 11:24 PM 04/11/2023 8:05 PM * Full Code Date Activated Date Inactivated Comments 04/08/2023 10:02 PM 04/08/2023 11:24 PM * Full Code Date Activated Date Inactivated Comments 10/15/2018 8:23 AM 10/18/2018 9:10 PM * Full Code Date Activated Date Inactivated Comments 10/02/2018 6:19 PM 10/04/2018 5:36 PM Care Teams Muffler Hand Relationship Specialty Start Date End Date Tere Conklin PA [address] [place] [address] PCP - General Emergency Medicine 12/08/21 Yulisa Estrada RN Registered Nurse 12/10/17 Trina Aguirre, RN Registered Nurse 07/01/18 Trina Aguirre, RN Registered Nurse 09/17/18 Josseline Giraldo Bid Analyst Addiction Medicine 02/03/20 Parish Mcfarland MD [address] [place] [address] [place] [address] Consulting Physician Pulmonary Disease 04/11/23
--- OUTSIDE RECORDS SUMMARY | 2024-03-20 13:27 | XMS_ITS | Clinical Summary ---
Author Organization [facility] Address [address] [place] [address] Phone Care Team Providers Care Engineering Production Liaison Name Role Phone Unavailable Unavailable Unavailable Reason for Visit and Chief Complaint referred by Tere Conklin - The Chief Complaint is: Pt here today for low back pain that radiatesinto both legs. imaging in 2018, nothing more recent. PM done with in [facility] but he closed his practice about 5 years ago. he was then sent to see . He does have a scs that was placed in december of last year through [facility]. trial of the pain pupp, did not work for him. He is seeking pain medication at this point because nothing is helping him. PT was tried before the scs was placed. neurosurgeon appt in 2 months Plan of Treatment Instructions to patient Intervention and counseling on cessation of tobacco use : Patient recieved smoking cessation handout Last Documented On 0 3:18PM ; [facility] Assessments Includes: Assessments from this encounter Findings - Lumbar radiculopathy [M54.16 - Radiculopathy, lumbar region] - Last Documented On 05/06/2019 3:32PM ; [facility] - Opioid abuse - continuous [F11.10 - Opioid abuse, uncomplicated] - Last Documented On 05/06/2019 3:32PM ; [facility] - Chronic pain syndrome [G89.4 - Chronic pain syndrome] - Last Documented On 05/06/2019 3:32PM ; [facility] Instructions Includes: Instructions from this encounter Instructions to patient Intervention and counseling on cessation of tobacco use : Patient recieved smoking cessation handout Last Documented On 0 3:18PM ; [facility] Medical Equipment - Implanted Devices Includes: Current Devices No Medical Equipment Recorded Medications Includes: Medications discussed during this encounter and other current Medications New / Renewed during this visit TIANNA SMITH on 04/24/2019 Narcan 4 MG/0.1ML Nasal Liquid Provider: TIANNA TONEY 30 day supply: 1 bottle, 0 refills Diagnosis: as directed [place] [address] [facility], [id number] - Last Documented On 0 4:26PM By TIANNA SMITH ; [facility] Gabapentin 100 MG Oral Capsule Provider: TIANNA SMITH 21 day supply: 126 capsule, 0 refills Diagnosis: Spinal stenosis, lumbar region with neurogenic claudication 2 po TIDto be taken with cur rent dose Pharmacy: [place] [address] [address] [facility], [id number] - Last Documented On 0 4:26PM By TIANNA SMITH ; [facility] Current Medications (continue as prescribed) lamoTRIgine 100 MG Oral Tablet 04/24/2019 Provider: Diagnosis: Last Documented On 0 3:17PM By Louise SANDOVAL ; [facility] clonazePAM 2 MG Oral Tablet 04/24/2019 Provider: Diagnosis: Last Documented On 0 3:17PM By Louise SANDOVAL ; [facility] traZODone HCl 100 MG Oral Tablet 04/24/2019 Provider : Diagnosis: Last Documented On 0 3:17PM By Louise SANDOVAL ; [facility] Gabapentin 600 MG Oral Tablet 04/24/2019 Provider: Diagnosis: Last Documented On 0 3:54PM By Louise SANDOVAL ; [facility] Medications Administered Includes: Administered Medications from this encounter No Administered Medications Recorded Vital Signs Includes: Vital Signs from this encounter Vital Name 04/24/2019 03:18P Blood Pressure Sitting L 134/84 BP Cuff Size Large Pulse Rate-Sitting (bpm) 75 Pulse Rhythm Regular Respiration Rate (breaths/min) 18 Weight (lb) 265 Pain Level 9 Last Documented: On 04/24/2019 3:18PM ; [facility] Results Includes: Results discussed during [...] 04/24/2019 Last Documented On 0 3:32PM ; [facility] No consumption of alcohol 04/24/2019 Last Documented On 0 3:32PM ; [facility] Tobacco use 04/24/2019 Last Documented On 0 3:32PM ; [facility] Using marijuana 04/24/2019 Last Documented On 0 3:32PM ; [facility] Smoking status : Current everyday smoker 04/24/2019 Last Documented On 0 3:32PM ; [facility] Procedures and Surgical History Includes: Procedures from this encounter Procedures Code Diagnosis Performing Provider Service L ocation Service Date intervention and counseling on cessation of tobacco use : Patient recieved smoking cessation handout 4000F Last Documented On 0 3:18PM ; [facility] Medical History Includes: Medical History addressed during this encounter Description Last Updated SCS placement 2019 04/24/2019 Last Documented On 0 3:32PM ; [facility] History of arthritis 04/24/2019 Last Documented On 0 3:32PM ; [facility] History of diabetes mellitus 04/24/2019 Last Documented On 0 3:32PM ; [facility] History of hypertension 04/24/2019 Last [...] 04/24/2019 Last Documented On 0 3:32PM ; [facility] No reported cardiovascular symptoms 04/12 Last Documented On 0 3:32PM ; [facility] No reported easy bleeding 04/24/2019 Last Documented On 0 3:32PM ; [facility] No reported recurrent infections 020 Last Documented On 0 3:32PM ; [facility] Family History Includes: Family History [...] Time Diagnosis PAIN MANAGEMENT NEW CONSULT [facility]NA [facility] 04/24/19 20 3:15PM 4:18PM Chronic Pain Syndrome,Lumba r Radiculopathy, Opioid Abuse - Continuous Insurance Includes: Active Insurance Policies Plan Name Member ID Group # Subscriber Relationship Effect aviva Dates 1 - [facility] [id number] HIEN Chavez 2 - MED[employer]ID [place] [facility] [id number] HIEN Chavez Clinical Notes Includes: Clinical Notes from this encounter No Clinical Notes Recorded
--- OUTSIDE RECORDS SUMMARY | 2024-03-20 13:27 | XMS_ITS | Clinical Summary ---
Author Organization [facility] Address [address] [place] [address] Care Team Providers Care Mud Analysis Well Logging Operator Name Role Phone None, Provider MD Primary [...] age to complete this topic Insurance [place] [address] [place] [address] Care Teams Mud Analysis Well Logging Operator Relationship Specialty Start Date End Date None, Provider, PCP - General 06/24/20
--- OUTSIDE RECORDS SUMMARY | 2024-03-20 13:27 | XMS_ITS | Encounter Summary ---
Author Organization [facility] Address [address] [place] [address] Care Team Providers Care Silo Man Name Role Phone Yulisa Estrada RN Unavailable Margie vailaTrina Mcclain RN Unavailable Unavailab Trina Veras RN Unavailable Unavailab le No, Physician Primary Care Provider [phone] Josseline Giraldo Unavailable Unavailable Larry Headley MD Primary Care Provider [phone] Tere Conklin Primary Care Provider [phone] Parish Mcfarland MD Unavailable Encounter Details Date Type Department Care Team (Late st Contact Info) Description 03/03/2019 Telephone [facility] [address] [place] [address] Trina Aguirre RN Social History Tobacco Use [...] on file Legal Sex Male 1:12 PM CERTIFIED DRIVER EXAMINER Gender Identity Not on file Sexual Orientation Not on file documented as of this encounter Plan of Treatment Not on file documented as of this encounter Visit Diagnoses Not on filedocumented in this encounter Additional Health Concerns Infection Onset Date Last Indicated Resolved Time COVID: Suspected 04/08/2023 04/08/2023 04/08/2023 8:23 PM CERTIFIED DRIVER EXAMINER Influenza, adult 04/08/2023 04/08/2023 04/15/2023 3:05 AM CERTIFIED DRIVER EXAMINER documented as of this encounter Care Teams Silo Man Relationship Specialty Start Date End Date No, Physician PCP - General 10/17/18 06/13/21 Larry Headley MD [address] [place] [address] [address] BARNEY [address] [place] [address] PCP - General Endocrinology 06/14/21 12/07/21 Tere Conklin PA [address] [place] [address] PCP - General Emergency Medicine 12/08/21 Yulisa Estrada RN Registered Nurse 12/10/17 Trina Aguirre, RN Registered Nurse 07/01/18 Trina Aguirre, RN Registered Nurse 09/17/18 Josseline Giraldo Gas Operations Analyst Addiction Medicine 02/03/20 Parish Mcfarland MD [address] [place] [address] DR BARNEY [address] [place] [address] Consulting Physician Pulmonary Disease 04/11/23 documented as of this encounter
--- OUTSIDE RECORDS SUMMARY | 2024-03-20 13:27 | XMS_ITS | Continuity of Care Document ---
Author Organization [facility] Address [address] [facility] [place] [address] Phone Care Team Providers Care Music Educator Name Role Phone Gerardo Allred MD Unavailable Unavailable Allergies, Adverse Reactions, Alerts Substance Reaction Status Criticality No Known Allergies Active No Inform ation Medications Medication Instructions Dosage Effective Dates (start - stop) Status Comments Percocet 10 mg-325 mg tablet take 1 tablet by oral route 3 times every day as needed 1 tablet - Active avoid drivin g or operate machines lisinopril-hydroc hlorothiazide 20 mg-25 mg tablet take 1 tablet by oral route every day 1.00 tablet - Active Procedures Procedure Date OFFICE/OUTPATIENT VISIT, EST Advance Directives Directive Yes / No Effective Date File Name No Information Encounters Encounter Description Practice Location Reason(s) For Visit Diagnoses Date Provider Providers Copied on Encounter OFFICE/OUTPA TIENT VISIT, EST [facility], [address] [place], [place], [id number], tel:[phone] [facility] back pain (chief complaint) foot pain (chief complaint) Dietary surveillance and counselingHypertens ion, UnspecifiedLumbagoP ain in joint involving lower leg 2 Chalino Carrillo. [address] [place], [place], [id number] , [place]. tel:[phone] Referring Provider: Gerardo Allred [address] [place], [place], [id number]. tel:[phone] Family History Family Member Type Diagnosis Age At Onset Father Problem (finding) Diabetes mellitus Mother Problem (finding) Alive and well Payers Payer name Insurance type Covered democrat ID Far[place]en [place](s) No Information Social History [...] Mental Status Date Cognitive Assessment Orientation - Bowden ed to time, place, person, situation.
--- OUTSIDE RECORDS SUMMARY | 2024-03-20 13:27 | XMS_ITS ---
Care Plan - [facility] Created on: March 20, 2024 HIEN RUIZ : 1985 Sex: Male Author Organization [facility] Address [address] [place] [address] Phone Care Team Providers Care Evening Anchor Name Role Phone Unavailable Unavailable Unavailable
--- OUTSIDE RECORDS SUMMARY | 2024-03-20 13:27 | XMS_ITS ---
Author Organization [facility] Address [address] [place] [address] Phone Care Team Providers Care Movie Theater Manager Name Role Phone Unavailable Unavailable Unavailable Plan of Treatment Instructions to patient Intervention and counseling on cessation of tobacco use : Patient recieved smoking cessation handout Last Documented On 0 3:18PM ; [facility] Assessments Includes: Assessments for all patient encounters Findings Encounter Date Chronic pain syndrome PAIN MANAGEMENT NE W CONSULT with TIANNAANDRA JONES [facility] 04/24/2019 Last Documented On 0 3:32PM ; [facility] Lumbar radiculopathy PAIN MANAGEMENT NEW CONSULT with TIANNA JONES [facility] 04/24/2019 Last Documented On 0 3:32PM ; [facility] Opioid abuse - continuous PAIN MANAGEMEN T NEW CONSULT with TIANNA JONES [facility] 04/24/2019 Last Documented On 0 3:32PM ; [facility] Instructions Includes: Instructions for all patient encounters Instructions to patient Intervention and counseling on cessation of tobacco use : Patient recieved smoking cessation handout Last Documented On 0 3:18PM ; [facility] Medical Equipment - Implanted Devices Includes: Current and historical Devices No Medical Equipment Recorded Medications Includes: Current and historical Medications Current Medications (continue as prescribed) lamoTRIgine 100 MG Oral Tablet 04/24/2019 Provider: Diagnosis: Last Documented On 0 3:17PM By Louise SANDOVAL ; [facility] clonazePAM 2 MG Oral Tablet 04/24/2019 Provider: Diagnosis: Last Documented On 0 3:17PM By Louise SANDOVAL ; [facility] traZODone HCl 100 MG Oral Tablet 04/24/2019 Provider : Diagnosis: Last Documented On 0 3:17PM By Louise SANDOVAL ; [facility] Gabapentin 600 MG Oral Tablet 04/24/2019 Provider: Diagnosis: Last Documented On 0 3:54PM By Louise SANDOVAL ; [facility] Narcan 4 MG/0.1ML Nasal Liquid 04/24/2019 Provider: TIANNA SMITH Diagnosis: as directed Last Documented On 0 4:26PM By TIANNA SMITH ; [facility] Gabapentin 100 MG Oral Capsule 04/24/2019 Provider: TIANNA SMITH Diagnosis: Spinal stenosis, lumbar region with neurogenic claudication 2 po TIDto be taken with cur rent dose Last Documented On 0 4:26PM By TIANNA SMITH ; [facility] Medications Administered Includes: Administered Medications in patient's chart No Administered Medications Recorded Results Includes: Results from 03/20/2023 through 03/20/2024 No Results Recorded For Specified Dates History of Present Illness History of Present Illness not supported for this document type No History of Present Illness Recorded Social History Description Last Updated 04/24/2019 Last Documented On 0 3:32PM ; [facility] No consumption of alcohol 04/24/2019 Last Documented On 0 3:32PM ; [facility] Tobacco use 04/24/2019 Last Documented On 0 3:32PM ; [facility] Using marijuana 04/24/2019 Last Documented On 0 3:32PM ; [facility] Smoking status : Current everyday smoker 04/24/2019 Last Documented On 0 3:32PM ; [facility] Medical History Includes: Medical History in patient's chart Description Last Updated SCS placement 2019 04/24/2019 Last Documented On 0 3:32PM ; [facility] History of arthritis 04/24/2019 Last Documented On 0 3:32PM ; [facility] History of diabetes mellitus 04/24/2019 Last Documented On 0 3:32PM ; [facility] History of hypertension 04/24/2019 Last Documented On 0 3:32PM ; [facility] No history of cancer 04/24/2019 Last Documented On 0 3:32PM ; [facility] No history of chronic obstructive pulmon josé luis disease 04/24/2019 Last Documented On 0 3:32PM ; [facility] No history of convulsive disorder 2019 Last Documented On 0 3:32PM ; [facility] No history of sexually transmitted disea se 04/24/2019 Last Documented On 0 3:32PM ; [facility] No history of stroke syndrome 04/24/2019 Last Documented On 0 3:32PM ; [facility] No reported cardiovascular symptoms 04/12 Last Documented On 0 3:32PM ; [facility] No reported easy bleeding 04/24/2019 Last Documented On 0 3:32PM ; [facility] No reported recurrent infections 020 Last Documented On 0 3:32PM ; [facility] Family History Includes: Family [...] Subscriber Relationship Effect aviva Dates 1 - [facility] [employer] [id number] HIEN Chavez 2 - MED[facility]ID [facility] [facility] [id number] HIEN Chavez Clinical Notes Includes: Signed Clinical Notes starting from 03/03/2022 No Clinical Notes Recorded
--- OUTSIDE RECORDS SUMMARY | 2024-03-20 13:27 | XMS_ITS | Encounter Summary ---
Author Organization [facility] Address [address] [place] [address] Care Team Providers Care Swing Frame Grinder Operator Name Role Phone None, Provider Primary Care Provider Unavaila ble Encounter Details Date Type Department Care Team (Late st Contact Info) Description 07/20/2018 Abstract SFL CONVERSION [address] [place] [address] , Generic Conversion, Social History Tobacco Use [...] on filedocumented in this encounter Care Teams Swing Frame Grinder Operator Relationship Specialty Start Date End Date None, ProviderMD PCP - General 06/24/20 documented as of this encounter
[2024-03-20 13:37] VITALS: BP 135/80; PULSE 90; RESP 17; TEMP 36.8; O2SAT 99
== END 2024-03-20 13:37 | disposition home or self-care (01) ==
PROVIDERS: Emergency Provider Emergency Medicine
DX: S93.402A Sprain of unspecified ligament of left ankle, initial encounter (principal); S96.912A Strain of unspecified muscle and tendon at ankle and foot level, left foot, initial encounter; F17.200 Nicotine dependence, unspecified, uncomplicated; X58.XXXA Exposure to other specified factors, initial encounter
CPT/HCPCS: 73610; 73630; 96372; 99283; J1885

== ENCOUNTER 2025-01-24 11:15 | Emergency (ER) | payer OTHER, SELFPAY ==
[2025-01-24 11:16] VITALS: BP 120/83; PULSE 93; RESP 20; TEMP 37; O2SAT 98
--- OUTSIDE RECORDS SUMMARY | 2025-01-24 11:17 | XMS_ITS | Clinical Summary ---
Author Organization [facility] Address [address] [place] [address] Phone Care Team Providers Care Machine Hose Cutter Name Role Phone Unavailable Unavailable Unavailable Reason for Visit and Chief Complaint referred by Tere Conklin - The Chief Complaint is: Pt here today for low back pain that radiatesinto both legs. imaging in 2018, nothing more recent. PM done with in [facility] but he closed his practice about 5 years ago. he was then sent to see . He does have a scs that was placed in december of last year through [place]. trial of the pain pupp, did not work for him. He is seeking pain medication at this point because nothing is helping him. PT was tried before the scs was placed. neurosurgeon appt in 2 months Plan of Treatment Instructions to patient Intervention and counseling on cessation of tobacco use : Patient recieved smoking cessation handout Last Documented On 0 3:18PM ; [facility] Assessments Includes: Assessments from this encounter Findings - Lumbar radiculopathy [M54.16 - Radiculopathy, lumbar region] - Last Documented On 05/06/2019 3:32PM ; [facility] - Opioid abuse - continuous [F11.10 - Opioid abuse, uncomplicated] - Last Documented On 05/06/2019 3:32PM ; [facility] - Chronic pain syndrome [G89.4 - Chronic pain syndrome] - Last Documented On 05/06/2019 3:32PM ; [facility] Instructions Includes: Instructions from this encounter Instructions to patient Intervention and counseling on cessation of tobacco use : Patient recieved smoking cessation handout Last Documented On 0 3:18PM ; [facility] Medical Equipment - Implanted Devices Includes: Current Devices No Medical Equipment Recorded Medications Includes: Medications discussed during this encounter and other current Medications New / Renewed during this visit TIANNA SMITH on 04/24/2019 Narcan 4 MG/0.1ML Nasal Liquid Provider: TIANNA TONEY 30 day supply: 1 bottle, 0 refills Diagnosis: as directed [place] [address] [address] [facility], [id number] - Last Documented On 0 4:26PM By TIANNA SMITH ; [facility] Gabapentin 100 MG Oral Capsule Provider: TIANNA SMITH 21 day supply: 126 capsule, 0 refills Diagnosis: Spinal stenosis, lumbar region with neurogenic claudication 2 po TIDto be taken with cur rent dose Pharmacy: [place] [address] [facility], [phone] - Last Documented On 0 4:26PM By TIANNA SMITH ; [facility] Current Medications (continue as prescribed) lamoTRIgine 100 MG Oral Tablet 04/24/2019 Provider: Diagnosis: Last Documented On 0 3:17PM By Louise SANDOVAL ; [facility] clonazePAM 2 MG Oral Tablet 04/24/2019 Provider: Diagnosis: Last Documented On 0 3:17PM By Louise SANDOVAL ; [facility] traZODone HCl 100 MG Oral Tablet 04/24/2019 Provider : Diagnosis: Last Documented On 0 3:17PM By Louise SANDOVAL ; [facility] Gabapentin 600 MG Oral Tablet 04/24/2019 Provider: Diagnosis: Last Documented On 0 3:54PM By Louise SANDOVAL ; [facility] Medications Administered Includes: Administered Medications from this encounter No Administered Medications Recorded Vital Signs Includes: Vital Signs from this encounter Vital Name 04/24/2019 03:18P Blood Pressure Sitting L 134/84 BP Cuff Size Large Pulse Rate-Sitting (bpm) 75 Pulse Rhythm Regular Respiration Rate (breaths/min) 18 Weight (lb) 265 Pain Level 9 Last Documented: On 04/24/2019 3:18PM ; [facility] Results Includes: Results discussed during [...] 04/24/2019 Last Documented On 0 3:32PM ; [facility] No consumption of alcohol 04/24/2019 Last Documented On 0 3:32PM ; [facility] Tobacco use 04/24/2019 Last Documented On 0 3:32PM ; [facility] Using marijuana 04/24/2019 Last Documented On 0 3:32PM ; [facility] Smoking status : Current everyday smoker 04/24/2019 Last Documented On 0 3:32PM ; [facility] Procedures and Surgical History Includes: Procedures from this encounter Procedures Code Diagnosis Performing Provider Service L ocation Service Date intervention and counseling on cessation of tobacco use : Patient recieved smoking cessation handout 4000F Last Documented On 0 3:18PM ; [facility] Medical History Includes: Medical History addressed during this encounter Description Last Updated SCS placement 2019 04/24/2019 Last Documented On 0 3:32PM ; [facility] History of arthritis 04/24/2019 Last Documented On 0 3:32PM ; [facility] History of diabetes mellitus 04/24/2019 Last Documented On 0 3:32PM ; [facility] History of hypertension 04/24/2019 Last Documented On 0 3:32PM ; [facility] No history of cancer 04/24/2019 Last Documented On 0 3:32PM ; [facility] No history of chronic obstructive pulmon josé luis disease 04/24/2019 Last Documented On 0 3:32PM ; [facility] No history of convulsive disorder 2019 Last Documented On 0 3:32PM ; [facility] No history of sexually transmitted disea se 04/24/2019 Last Documented On 0 3:32PM ; [facility] No history of stroke syndrome 04/24/2019 Last Documented On 0 3:32PM ; [facility] No reported cardiovascular symptoms 04/12 Last Documented On 0 3:32PM ; [facility] No reported easy bleeding 04/24/2019 Last Documented On 0 3:32PM ; [facility] No reported recurrent infections 020 Last Documented On 0 3:32PM ; [facility] Family History Includes: Family History [...] Time Diagnosis PAIN MANAGEMENT NEW CONSULT [facility] 04/24/19 20 3:15PM 4:18PM Chronic Pain Syndrome,Lumba r Radiculopathy, Opioid Abuse - Continuous Insurance Includes: Active Insurance Policies Plan Name Member ID Group # Subscriber Relationship Effect aviva Dates 1 - [facility] [id number] HIEN Chavez 2 - MED[facility]ID [facility] [id number] HIEN Chavez Clinical Notes Includes: Clinical Notes from this encounter No Clinical Notes Recorded
--- OUTSIDE RECORDS SUMMARY | 2025-01-24 11:17 | XMS_ITS | Patient Health Record ---
Author Organization [facility] Address [address] [place] [address] Care Team Providers Care Dish Up Person Name Role Phone Nasra Cheung Primary Care Provider [phone] Reason For Referral No Information Medications Medication SIG (Take, Route, Fr equency, Duration) Notes Start Date End Date Status Lantus Active NovoLOG Active LaMICtal 100 MG Tablet 1 tablet Orally Once a day Active Paxil 40 MG Tablet 1 tablet in the morn ing Orally Once a day Active Social History Tobacco Use: Social History Observation Description Date Details (start date - stop date) Current Smoker NA - NA Social History [facility] Social Info Question Answer Notes ADULT Education: More than high school diplom a/GED Employment: Not employed, looking for job Do you understand spoken citizen of [place]? Yes Communication needs (hearing, visual or cognitiv e): No Good ability to interact with other people: Yes Insecurities in? (list all that apply) None Advanced Care Planning in pl [place]? (Must have copy of legal document) No Advanced Care Planning Date 12/30/2019 Reviewed/Updated 12/30/2019 Drugs/Alcohol: Social Info Question Answer Notes Alcohol Screen (Audit-C) Did you have a drink containing alcohol in the past year? No Points 0 Interpretation Negative Drugs Have you used drugs other than those for medical reasons in the past 12 months? Yes Heroin? Yes Route? Injected Cocaine? No Are you in a treatment program? Yes Name of program: [facility] Type of program: Out-patient Have ever injected drugs? Yes Are you currently injecting drugs? Yes Last used heroin o n 12/29/19. PCP? No Ketamine? No Marijuana? Yes Prescription opiates? No Ecstacy? No LSD? No Crack? No Methamphetamine? No Caffeine Intake: 1-2 cups per we ek Tobacco Use: Social Info Question Answer Notes Tobacco Use/Smoking Are you a current smoker How often do you smoke cigarettes? every day How many cigarettes a day do you smoke? 6-10 Tobacco use other than smoking: Are you an other tobac co user? No Problems Problem Type SNOMED Code ICD Code Onset Dates Problem Status W/U Status Risk Notes Problem Opioid abuse (9586717) Heroin abuse (F11.10) Active confirmed Problem Cutaneous abscess of upper extremity, unspecified laterality (L02.419) Active confirmed Plan Of Treatment No Information Medical (General) History Medical History History ICD Code Opioid abuse Type 2 diabetes mellitus Depression Bipolar depression Herniated disks Arthritis Obesity Surgical History Surgery Date(Month/Year) 2 Back operations 2011, 2018 Removal of abscesses on bilateral arms
--- OUTSIDE RECORDS SUMMARY | 2025-01-24 11:17 | XMS_ITS | Clinical Summary ---
Author Organization [facility] Address [address] [place] [address] Phone Care Team Providers Care Assistant Manager Quality Management Name Role Phone Unavailable Unavailable Unavailable Reason [...] On 0 3:17PM By Louise SANDOVAL ; [facility] clonazePAM 2 MG Oral Tablet 04/24/2019 Provider: Diagnosis: Last Documented On 0 3:17PM By Louise SANDOVAL ; [facility] traZODone HCl 100 MG Oral Tablet 04/24/2019 Provider : Diagnosis: Last Documented On 0 3:17PM By Louise SANDOVAL ; [facility] Gabapentin 600 MG Oral Tablet 04/24/2019 Provider: Diagnosis: Last Documented On 0 3:54PM By Louise SANDOVAL ; [facility] Narcan 4 MG/0.1ML Nasal Liquid 04/24/2019 Provider: TIANNA SMITH Diagnosis: as directed Last Documented On 0 4:26PM By TIANNA SMITH ; [facility] Gabapentin 100 MG Oral Capsule 04/24/2019 Provider: TIANNA SMITH Diagnosis: Spinal stenosis, lumbar region with neurogenic claudication 2 po TIDto be taken with cur rent dose Last Documented On 0 4:26PM By TIANNA SMITH ; [facility] Medications Administered Includes: Administered [...] Subscriber Relationship Effect aviva Dates 1 - [employer] [facility] [id number] HIEN Chavez 2 - MEDICAID [facility] [id number] HIEN Chavez Clinical Notes Includes: Clinical Notes from this encounter No Clinical Notes Recorded
--- OUTSIDE RECORDS SUMMARY | 2025-01-24 11:17 | XMS_ITS | Patient Health Record ---
Author Organization [facility] Address [address] [place] [address] [place] [address] Phone [phone] Care Team Providers Care Tower Erector Helper Name Role Phone Antonio Peters MD [facility] [phone] Reason For Referral No Information Medications Medication SIG (Take, Route, Frequency, Duration) Notes Start Date End Date Diagnosis (ICD Code) Status LaMICtal 100 MG Tablet 2 tablets Orally Twice a day Active traZODone HCl 50 MG Tablet Oral; Duration: 30 Active lamoTRIgine 100 MG Tablet 1 tablet Oral Once a day Active [place] 10-325 MG Tablet 1 tablet Orally up to TID prn severe pain; Duration: 15 days 07/16/2017 Radiculopathy, lumbar region (ICD_10 - M54.16) Active Vitamin D (Ergocalciferol) 97840 UNIT Capsule 1 capsule Oral Ac tive Keflex 500 MG Capsule 1 capsule Orally every 12 hrs Active diazePAM 10 MG Tablet 1 tablet as needed Oral Once a day Active Zolpidem Tartrate 10 MG Tablet 1 tablet at bedtime as needed Oral Once a day Active Social History Sex Observation Social History Observation Description Sex Observation Male Problems Problem Type SNOMED Code ICD Code Dates Problem Status W/U Status Risk Notes Problem Bipolar disorder (37327197) Bipolar disorder, unspecified (F31.9) Added On:07/09 Active confirmed Problem Chronic pain syndrome (109909753) Chronic pain syndrome (G89.4) Added On:07/09 Active confirmed Problem Spinal enthesopathy (18808518) Spinal enthesopathy, site unspecified (M46.00) Added On:07/09 Active confirmed Problem Solitary sacroiliitis (842105998) Sacroiliitis, not elsewhere classified (M46.1) Added On:07/09 Active confirmed Problem Lumbosacral spondylosis without myelopathy (26832074) Spondylosis without myelopathy or radiculopathy, lumbar region (M47.816) Added On:07/09 Active confirmed Problem Displacement of lumbar intervertebral disc without myelopathy (34819344) Other intervertebral disc displacement, lumbar region (M51.26) Added On:07/09 Active confirmed Problem Disorder of cervical spine (551370181) Other specified dorsopathies, cervical region (M53.82) Added On:07/09 Active confirmed Problem Lumbar radiculopathy (677460416) Radiculopathy, lumbar region (M54.16) Added On:07/09 Active confirmed Problem Lumbosacral radiculopathy (7083860) Radiculopathy, lumbosacral region (M54.17) Added On:07/09 Active confirmed Problem Post-laminectomy syndrome (38612052) Postlaminectomy syndrome, not elsewhere classified (M96.1) Added On:07/09 Active confirmed Problem Spinal stenosis of lumbar region (90114577) Spinal stenosis, lumbar region without neurogenic claudication (M48.061) Added On:07/09 Active confirmed Plan Of Treatment Pending Test Test Name Order Date UDS 09/03/2017 Insurance Providers Payer Name Payer Address Payer Phone Subscriber Number Group Number Insured Name Patient Relationship to Insured Coverage Start Date Coverage End Date [facility] [address] [place] [address] [id number] HIEN RUIZ Self - patient is the insured 8 Medical (General) History Medical History History ICD Code Bipolar disorder Surgical History Surgery Date(Month/Year) L5-S1 laminectomy 2011
--- OUTSIDE RECORDS SUMMARY | 2025-01-24 11:17 | XMS_ITS | Encounter Summary ---
Author Organization [facility] Address [address] [place] [address] Care Team Providers Care Rollway Man Name Role Phone Yulisa Estrada RN Unavailable Margie vailaTrina Mcclain RN Unavailable Unavailab Trina Veras RN Unavailable Unavailab le No, Physician Primary Care Provider [phone] Josseline Giraldo Unavailable Unavailable Larry Headley MD Primary Care Provider [phone] Tere Conklin Primary Care Provider [phone] Parish Mcfarland MD Unavailable Encounter Details Date Type Department Care Team (Late st Contact Info) Description 03/03/2019 Telephone [facility] [address] [place] [address] Trina Aguirre RN Social History Tobacco Use [...] on file Legal Sex Male 1:12 PM MOBILE DEVICE DEVELOPER Gender Identity Not on file Sexual Orientation Not on file documented as of this encounter Plan of Treatment Not on file documented as of this encounter Visit Diagnoses Not on filedocumented in this encounter Additional Health Concerns Infection Onset Date Last Indicated Resolved Time COVID: Suspected 04/08/2023 04/08/2023 04/08/2023 8:23 PM MOBILE DEVICE DEVELOPER Influenza, adult 04/08/2023 04/08/2023 04/15/2023 3:05 AM MOBILE DEVICE DEVELOPER documented as of this encounter Care Teams Rollway Man Relationship Specialty Start Date End Date No, Physician PCP - General 10/17/18 06/13/21 Larry Headley MD [address] [place] [address] [address] BARNEY [address] [place] [address] PCP - General Endocrinology 06/14/21 12/07/21 Tere Conklin PA [address] [place] [id number] PCP - General Emergency Medicine 12/08/21 Yulisa Estrada RN Registered Nurse 12/10/17 Trina Aguirre, RN Registered Nurse 07/01/18 Trina Aguirre, RN Registered Nurse 09/17/18 Josseline Giraldo Resident Care Associate Addiction Medicine 02/03/20 Parish Mcfarland MD [address] [place] [address] [address] BARNEY [address] [place] [address] Consulting Physician Pulmonary Disease 04/11/23 documented as of this encounter
--- OUTSIDE RECORDS SUMMARY | 2025-01-24 11:17 | XMS_ITS | Clinical Summary ---
Author Organization [facility] Address [address] [place] [address] Care Team Providers Care Shop Firer/Fireman Name Role Phone None, Provider MD Primary [...] 11:02 AM CDT Height 190.5 cm (6' 3) 06/24/2020 11:02 AM CDT Body Mass Index 34.37 06/24/2020 11:02 AM CDT Plan of Treatment Health Maintenance Due Date Last Done Comments Annual Physical 1989 Hepatitis C 2004 DTaP, Tdap and Td Vaccines (1 - Tdap) 2005 06/17/1991, 02/17/1988, 02/28/1987, Additional history exists Hepatitis B Vaccines (1 of 3 - 19+ 3-dose series) 2005 Pneumococcal Vaccine: Pediatrics (0 to 5 Years) and At-Risk Patients (6 to 49 Years) (1 of 2 - PCV) 2005 HPV Vaccines (1 - 3-dose SCDM series) 2013 COVID-19 Vaccine (2 - season) 2024 06/12/2020 Influenza Adult (#1) 2024 02/23/2015 Hepatitis A Vaccines Aged Out No long er eligible based on patient's age to complete this topic Meningococcal B Vaccine Aged Out No l onger eligible based on patient's age to complete this topic Meningococcal Vaccine Aged Out No diallo samira eligible based on patient's age to complete this topic RSV Immunizations Under 20 Months Aged Out No longer eligible based on patient's age to complete this topic Insurance [employer] MEDICAID DEPT OF [address] Care Teams Shop Firer/Fireman Relationship Specialty Start Date End Date None, Provider, PCP - General 06/24/20
--- OUTSIDE RECORDS SUMMARY | 2025-01-24 11:17 | XMS_ITS | Clinical Summary ---
Author Organization [facility] Address [address] [place] [address] Care Team Providers Care Electronics Engineering Professor Name Role Phone Yulisa Estrada RN Unavailable Margie Trina Hernandez RN Unavailable Unavailab Trina Veras RN Unavailable Unavailab Josseline Espino Unavailable Unavailable Tere Conklin Primary Care Provider [phone] Parish Mcfarland MD Unavailable Allergies No known [...] mg by mouth daily Verified by the [facility] Active losartan (COZAAR) 25 mg tablet Take 1 tablet (25 mg total) by mouth daily 90 tablet 4 08/10/19 24 Active fenofibrate (TRIGLIDE) 160 mg tablet Take 1 tablet (160 mg total) by mouth daily 90 tablet 4 08/10/19 24 Active empagliflozin (JARDIANCE) 25 mg tabletIndication s:type 2 diabetes mellitus Take 1 tablet (25 mg total) by mouth daily E11.65 90 tablet 4 11/20/19 24 Active docusate sodium (COLACE) 100 mg capsule 12/25/19 24 Active tiZANidine (ZANAFLEX) 4 mg tablet 12/24/19 24 Active famotidine (PEPCID) 20 mg tablet 12/24/19 24 Active metoclopramide (REGLAN) 10 mg tablet 02/01/20 24 Active flash glucose scanning reader miscIndications: Type 2 diabetes mellitus with hypoglycemia without coma, with long-term current use of insulin (HCC) 1 Device continuously To read freestyle dre 3 sensor. E11.65 1 each 02/20/19 25 Active insulin lispro (HumaLOG, ADMELOG) 100 unit/mL pen for injectionIndicat ions:type 2 diabetes mellitus Inject 12 units plus sliding scale TID before meals Total daily dose 50 units. E11.65 45 mL 02/20/19 25 Active glucagon (Gvoke HypoPen 2-Pack) 1 mg/0.2 mL auto-injectorInd ications:patient with diabetes mellitus at risk of hypoglycemia Inject 1 mg under the skin as needed (for severe hypoglycemia requiring the assistance of another. will raise Blood sugar 177 points.) E11.65 0.4 mL 02/20/19 25 Active blood glucose diagnostic (glucose blood) strip Use to test blood glucose 4 x each day DX E10.65 400 each 02/24/19 25 Active LANTUS 100 unit/mL (3 mL) pen for injection INJECT 30 UNITS SUBCUTANEOUSLY DAILY AFTER DINNER 30 mL 04/25/19 25 Active atorvastatin (LIPITOR) 40 mg tablet Take 1 tablet (40 mg total) by mouth daily 90 tablet 3 12/06/19 25 026 Active dulaglutide (Trulicity) 3 mg/0.5 mL pen injectorIndicati ons:cardiovascul ar disease associated with T2DM,type 2 diabetes mellitus Inject 0.5 mL (3 mg total) under the skin every 7 days E11.65 6 mL 4 12/29/19 25 Active dulaglutide (TRULICITY) 1.5 mg/0.5 mL pen injectorIndicati ons:type 2 diabetes mellitus Inject 0.5 mL (1.5 mg total) under the skin every 7 days E11.65 6 mL 4 01/14/20 24 025 Discontin ued(Thera py completed ) Active Problems Problem Noted Date Diagnosed Date Class 1 obesity due to exces s calories with serious comorbidity and body mass index (BMI) of 33.0 to 33.9 in adult 08/07/2023 Assessment & Plan (02/21/2024 12:44 PM KITCHEN MECHANIC): This is a chronic condition which continues [...] 07/10/2019 Assessment & Plan (02/21/2024 12:43 PM KITCHEN MECHANIC): This is a chronic condition which is [...] to start with PCP, and recommended the [facility] medical group Assessment & Plan (04/08/2020 4:07 PM KITCHEN MECHANIC): History of hyperlipidemia Patient was not able [...] 10/25/2018 Assessment & Plan (02/21/2024 12:51 PM KITCHEN MECHANIC): This is a chronic condition which is [...] severe hypoglycemia. Monitor blood sugar continuously with Bybanstyle dre cgm. Encouraged annual eye exam. Monofilament foot [...] fenofibrate Assessment & Plan (01/02/2023 11:37 AM KITCHEN MECHANIC): Diagnosed in September 2018 With blood sugars [...] basis. Assessment & Plan (04/08/2020 4:06 PM KITCHEN MECHANIC): Diagnosed in September 2018 With blood sugars [...] : needs exam Plan: Refer patient to dog food shredder operator. Patient asked to start seeing PCP [...] : needs exam Plan: Refer patient to dog food shredder operator. Patient asked to start seeing PCP [...] eliecer associated with type 1 diabetes mellitus 04/08/2023 08/07/2023 Hyponatremia 10/15/2018 08/07/2023 Diabetic ketoacidosis withou t coma associated with diabetes mellitus due to underlying condition 10/15/2018 08/07/2023 Type 2 diabetes mellitus wit h hyperglycemia, without long-term current use of insulin 10/08/2018 07/10/2019 Encounters Date Type Department Care Team Description 12/26/2024 Telephone [facility] Medical Group Diabetes Endocrine Care at [address] [address] Nasra Rendon, GWENDOLYN from Last 3 Months Immunizations Immunization Administration Dates Next Due DTP 06/17/1991, 9,02/28/1987,11/27,1986 [...] Medical History Date Comments Hypertension Diabetes mellitus Opiate abuse, continuous (HCC) SVT (supraventricular tachycardia) Hepatitis C treated Type 2 diabetes mellitus History of seizure Bipolar disorder Arthritis Diabetic ketoacidosis withou t coma associated with diabetes mellitus due to underlying condition (HCC) 10/15/2018 Diabetic ketoacidosis with c eliecer associated with type 1 diabetes mellitus (HCC) 04/08/2023 Influenza A 04/11/2023 Hyponatremia 10/15/2018 Family History Medical History Relation Name Comments Diabetes Father Hyperlipidemia Father Hypertension Father Hypertension Mother Relation Name Status Comments Father Mother Social History Tobacco Use Types Packs/Day Years Used Date Smoking Tobacco: Every Day Cigarettes 0.5 23.9 Started: 2001 Smokeless Tobacco: Never Tobacco Cessation:Ready to Q uit: Not Asked; Counseling Given: Not Answered Comments:5-6 cig per day Alcohol Use Standard Drinks/Week Comments No 0 (1 standard drink = 0.6 oz pur e alcohol) [facility] Utilities Answer Date Recorded In the past 12 months has th e electric, gas, oil, or water company threatened to shut off services in your home? No 04/10/2023 Social Connection and Isolation Panel Answer Date Recorded In a typical week, how many times do you talk on the phone with family, friends, or neighbors? Three times a week 04/10/2023 How often do you get togethe r with friends or relatives? More than three times a week 04/10/2023 Attends [employer] Services Not on file 04/10 Active Member [...] place to sleep or slept in a custodial (including now)? No 04/10/2023 Personal Safety Answer Date Recorded Have you ever been in or are you currently in a harmful physical or emotional relationship or is someone making you feel afraid or unsafe? Denies 08/13/2023 Sex and Gender Information Value Date Recorded Sex Assigned at Not on file Legal Sex Male 1:12 PM KITCHEN MECHANIC Gender Identity Not on file Sexual Orientation Not on file Last Filed Vital Signs Vital Sign Reading Time Taken Comments Blood Pressure 128/76 02/21/2024 11:12 AM KITCHEN MECHANIC Pulse 72 08/13/2023 11:00 AM CDT Temperature 36.3 C (97.4 F) 08/13/2023 8:51 AM CDT Respiratory Rate 16 08/13/2023 8:51 AM CDT Oxygen Saturation 94% 08/13/2023 11:00 AM CDT Inhaled Oxygen Concentration - - Weight 121 kg (266 lb 11.2 oz) 02/21/2024 11:12 AM KITCHEN MECHANIC Height 190.5 cm (6' 3) 02/21/2024 11:12 AM KITCHEN MECHANIC Body Mass Index 33.34 02/21/2024 11:12 AM KITCHEN MECHANIC Plan of Treatment Health Maintenance Due Date Last Done Comments Varicella Vaccines (1 of 2 - 13+ 2-dose series) 07/14/1999 DTaP/Tdap/Td Vaccine (6 - Tdap) 05/18/2001 05/17/2001, 06/17/1991, 02/17/1988, Additional history exists Regular Well Visit/Exam 18-64 2004 HPV Vaccines (1 - 3-dose SCDM series) 2013 Depression Screening 10/03/2019 10/02/2018 Albumin Creatinine Ratio, Urine 08/08/2024 08/09/2023, 03/25/2020 Lipid Panel 08/08/2024 08/09/2023, 07, 09/28/2020, Additional history exists eGFR 08/12/2024 08/13/2023, 02/2 09/2023, 04/10/2023, Additional history exists Hemoglobin A1C 08/20/2024 02/21/2024, 09/2023, 08/07/2023, Additional history exists Covid-19 Vaccine (3 - 2024- season) 2024 07/10/2020, 06/12/2020 Influenza Vaccine (#1) 2024 6, 11/21/2013, 11/21/2013 Dilated Eye Exam 11/19/2024 11/20/2023 Pneumococcal vaccine <65 (2 of 2 - PCV) 02/17/2025 11/21/2013 Postponed from 11/21/2014 (Patient declined, but will receive in the future) Foot Exam 02/20/2025 02/21/2024, 09/2023, 08/07/2023, Additional history exists Hepatitis B Screening Completed 11/17/1996 , 06/16/1996, 05/19/1996 Hepatitis C Screening Completed 10/15/2018 Medical Devices Implanted Type Area Fireboat Operator Device Identifier Shelf Expiration Date Model / Serial / Lot [employer] 1192 Patel-Lock [place] Lead - [id number] Implanted:Qty: 2 on 12/26/2018 by Mert Garcia MD at [facility] 05/22/2020 1192 / / [id number] [employer] [id number] Octrode 60cm 8 Electrode Lead Percutaneous Kit Neurostimulator - [id number] - [id number] Implanted:Qty: 1 on 12/26/2018 by Mert Garcia MD at [facility] 05/01/2020 [id number] / [id number] / [employer] [id number] Octrode 60cm 8 Electrode Lead Percutaneous Kit Neurostimulator - [id number] - [id number] Implanted:Qty: 1 on 12/26/2018 by Mert Garcia MD at [facility] 04/28/2020 [id number] / [id number] / [facility] 3660 Contrlsys Proclaim Elite 4.95cmx5.55cm 5 Implantable Pulse Tonic - [id number] - [id number] Implanted:Qty: 1 on 12/26/2018 by Mert Garcia MD at [facility] 11/14/2020 3660 CONTRLSYS / [id number] / Description:[email or web address] Procedures Procedure Name Priority Date/Time Associated Diagnosis Comments POCT HEMOGLOBIN A1C Routine 02/21/2024 1 1:15 AM KITCHEN MECHANIC Type 2 diabetes mellitus with hypoglycemia without [...] Type 1 diabetes mellitus with hyperglycemia (HCC) HEPATITIS PANEL, ACUTE Routine 10/15/2018 9:55 AM CDT from Last 3 Months or Most Recently Relevant to Health Maintenance Results * POCT hemoglobin A1c (02/21/2024 11:15 AM KITCHEN MECHANIC) Hemoglobin A1C, POC 5.6 4.0 - 5.6 % Blood 02/21/2024 11:1 5 AM KITCHEN MECHANIC us Nasra Rendon NP POINT OF CARE [...] Serena Torres MD LAB BLOOD ORDERABLES Johana mauro Result [facility] [place] [facility] Department [place] [address] * (ABNORMAL) Albumin Creatinine Ratio, Urine (08/09/2023 [...] CDT 08/09/2023 2:35 PM CDT us Nasra K. Justice DIRECT SUPPORT PROFESSIONAL HOME HEALTH LAB URINE ORDERABLES Final Resu lt [facility] [address] [facility] Department of Laboratories [place] [id number] * (ABNORMAL) Lipid panel (08/09/2023 9:00 AM [...] CDT 08/09/2023 2:35 PM CDT Narrative [facility] - 08/09/2023 3:22 PM CDT These lab test should be done fasting. This means do not eat or drink for at least 12 hours prior to getting your blood drawn. Has the patient been fasting for 8 hours or more?->Yes us Nasra Rendon NP LAB BLOOD ORDERABLES Final Resu lt [facility] [address] [facility] Department [place] [address] * (ABNORMAL) Hepatitis panel, acute (10/15/2018 9:55 AM CDT) Hep A IgM Negative Negative [facility] ([place]) Comment:Testing performed by : [facility], [address] [place] [address]., [address] Hep B core IgM Negative Negative [facility] ([place]) Comment:Testing performed by : [facility], [address] [place] [address]., [address] Hep C Ab Positive(A) Negative [facility] ([place]) Comment:Testing performed by : [facility], [address] [place] [address]., [address] HepBsAg Nonreactive Nonreactive [facility] ([place]) Comment:Testing performed by : [facility], [address] [place] [address]., [address] Blood specimen (specimen) 10/15/2018 9:55 AM CDT 10/15/2018 1:53 PM CDT Amna Farley MD LAB MICROBIOLOGY - GENER AL ORDERABLES Final Result [facility] ([place]) 1 [facility] Department [place] [address] from Last 3 Months or Most Recently Relevant to Health Maintenance Insurance [facility] Advance Directives For more information, please contact: [phone] * Full Code (Latest Code Status on File) Date Activated Date Inactivated Comments 04/08/2023 11:24 PM 04/11/2023 8:05 PM * Full Code Date Activated Date Inactivated Comments 04/08/2023 10:02 PM 04/08/2023 11:24 PM * Full Code Date Activated Date Inactivated Comments 10/15/2018 8:23 AM 10/18/2018 9:10 PM * Full Code Date Activated Date Inactivated Comments 10/02/2018 6:19 PM 10/04/2018 5:36 PM Care Teams Electronics Engineering Professor Relationship Specialty Start Date End Date Tere Conklin PA [address] [place], [place] [id number] PCP - General Emergency Medicine 12/08/21 Yulisa Estrada, RN Registered Nurse 12/10/17 Trina Aguirre, RN Registered Nurse 07/01/18 Trina Aguirre, RN Registered Nurse 09/17/18 Josseline Giraldo [facility] [employer] [facility] 02/03/20 Parish Mcfarland MD [address] [place] [address] [place] [address] Consulting Physician Pulmonary Disease 04/11/23
--- OUTSIDE RECORDS SUMMARY | 2025-01-24 11:17 | XMS_ITS | Encounter Summary ---
Author Organization [facility] Address [address] [place] [address] Care Team Providers Care Acid Treater Name Role Phone None, Provider Primary Care Provider Unavaila ble Encounter Details Date Type Department Care Team (Late st Contact Info) Description 07/20/2018 Abstract [facility] CONVERSION [address] [place] [address] , Generic Conversion, Social History Tobacco Use [...] on filedocumented in this encounter Care Teams Acid Treater Relationship Specialty Start Date End Date None, ProviderMD PCP - General 06/24/20 documented as of this encounter
--- OUTSIDE RECORDS SUMMARY | 2025-01-24 11:17 | XMS_ITS | Encounter Summary ---
Author Organization [facility] Healthcare Address [address] [place] [address] Care Team Providers Care Wire Inspector Name Role Phone Austin Bae NP Primary Care Provider + Yulisa Estrada RN Unavailable Margie vailable Trina Aguirre RN Unavailable Unavailab Trina Veras RN Unavailable Unavailab le Aretha, Physician Primary Care Provider [phone] Austin Bae DIELECTRIC MACHINE OPERATOR Primary Care Provider + No, Physician Primary Care Provider [phone] Josseline Giraldo Unavailable Unavailable Larry Headley MD Primary Care Provider [phone] Tere Conklin Primary Care Provider [phone] Parish Mcfarland MD Unavailable Encounter Details Date Type Department Care Team (Late st Contact Info) Description 08/19/2018 Telephone [facility] [address] [place] [address] Trina Aguirre RN Social History Tobacco Use Types Packs/Day Years Used Date Smoking Tobacco: Every Day Cigarettes Smokeless Tobacco: Never Alcohol Use Standard Drinks/Week Comments No 0 (1 standard drink = 0.6 oz pur e alcohol) Sex and Gender Information Value Date Recorded Sex Assigned at Not on file Legal Sex Male 1:12 PM SHOE PARTS CASER Gender Identity Not on file Sexual Orientation Not on file documented as of this encounter Plan of Treatment Not on file documented as of this encounter Visit Diagnoses Not on filedocumented in this encounter Additional Health Concerns Infection Onset Date Last Indicated Resolved Time COVID: Suspected 04/08/2023 04/08/2023 04/08/2023 8:23 PM SHOE PARTS CASER Influenza, adult 04/08/2023 04/08/2023 04/15/2023 3:05 AM SHOE PARTS CASER documented as of this encounter Care Teams Wire Inspector Relationship Specialty Start Date End Date Austin Bae NP [address] [place] [address] [address] [place] [address] PCP - General 06/06/17 10/14/18 No, Physician PCP - General 10/15/18 10/15/18 Austin Bae NP [address] [place] [address] [address] [place] [address] PCP - General 10/16/18 10/16/18 No, Physician PCP - General 10/17/18 06/13/21 Larry Headley MD [address] [place] [address] [address] [place] [address] PCP - General Endocrinology 06/14/21 12/07/21 Tere Conklin PA [address] [place] [address] PCP - General Emergency Medicine 12/08/21 Yulisa Estrada, SANAZ Registered Nurse 12/10/17 Trina Aguirre, RN Registered Nurse 07/01/18 Trina Aguirre, RN Registered Nurse 09/17/18 Josseline Giraldo [employer] Department Manager Addiction Medicine 02/03/20 Parish Mcfarland MD [address] [place] [address] [address] [place] [address] Consulting Physician Pulmonary Disease 04/11/23 documented as of this encounter
--- OUTSIDE RECORDS SUMMARY | 2025-01-24 11:17 | XMS_ITS | Encounter Summary ---
Author Organization [facility] Healthcare Address [address] [place] [address] Care Team Providers Care Byproduct Engineer Name Role Phone Austin Bae NP Primary Care Provider + Yulisa Estrada RN Unavailable Margie vailable Trina Aguirre RN Unavailable Unavailab Trina Veras RN Unavailable Unavailab le Aretha, Physician Primary Care Provider [phone] Austin Bae MACHINE OPERATIONS SUPERVISOR Primary Care Provider + No, Physician Primary Care Provider [phone] Josseline Giraldo Unavailable Unavailable Larry Headley MD Primary Care Provider [phone] Tere Conklin Primary Care Provider [phone] Parish Mcfarland MD Unavailable Encounter Details Date Type Department Care Team (Late st Contact Info) Description 08/19/2018 Telephone [facility] [address] [place] [address] Trina Aguirre RN Social History Tobacco Use Types Packs/Day Years Used Date Smoking Tobacco: Every Day Cigarettes Smokeless Tobacco: Never Alcohol Use Standard Drinks/Week Comments No 0 (1 standard drink = 0.6 oz pur e alcohol) Sex and Gender Information Value Date Recorded Sex Assigned at Not on file Legal Sex Male 1:12 PM SET UP MECHANIC COIL WINDING MACHINES Gender Identity Not on file Sexual Orientation Not on file documented as of this encounter Plan of Treatment Not on file documented as of this encounter Visit Diagnoses Not on filedocumented in this encounter Additional Health Concerns Infection Onset Date Last Indicated Resolved Time COVID: Suspected 04/08/2023 04/08/2023 04/08/2023 8:23 PM SET UP MECHANIC COIL WINDING MACHINES Influenza, adult 04/08/2023 04/08/2023 04/15/2023 3:05 AM SET UP MECHANIC COIL WINDING MACHINES documented as of this encounter Care Teams Byproduct Engineer Relationship Specialty Start Date End Date Austin Bae NP [address] [place] [address] [address] [place] [address] PCP - General 06/06/17 10/14/18 No, Physician PCP - General 10/15/18 10/15/18 Austin Bae NP [address] [place] [address] [address] [place] [address] PCP - General 10/16/18 10/16/18 No, Physician PCP - General 10/17/18 06/13/21 Larry Headley MD [address] [place] [address] [address] [place] [address] PCP - General Endocrinology 06/14/21 12/07/21 Tere Conklin PA [address] [place] [address] PCP - General Emergency Medicine 12/08/21 Yulisa Estrada, SANAZ Registered Nurse 12/10/17 Trina Aguirre, RN Registered Nurse 07/01/18 Trina Aguirre, RN Registered Nurse 09/17/18 Josseline Giraldo Billing Adjudicator Addiction Medicine 02/03/20 Parish Mcfarland MD [address] [place] [address] [address] [place] [address] Consulting Physician Pulmonary Disease 04/11/23 documented as of this encounter
--- OUTSIDE RECORDS SUMMARY | 2025-01-24 11:17 | XMS_ITS ---
Author Organization [facility] Address [address] [place] [address] Phone Care Team Providers Care Special Makeup Fx Artist Instructor Name Role Phone Unavailable Unavailable Unavailable Plan of Treatment Instructions to patient Intervention and counseling on cessation of tobacco use : Patient recieved smoking cessation handout Last Documented On 0 3:18PM ; [facility] Assessments Includes: Assessments for all patient encounters Findings Encounter Date Chronic pain syndrome PAIN MANAGEMENT NE W CONSULT with TIANNAANDRA JONES [facility] 04/24/2019 Last Documented On 0 3:32PM ; [facility] Lumbar radiculopathy PAIN MANAGEMENT NEW CONSULT with TIANNA JONES [facility] 04/24/2019 Last Documented On 0 3:32PM ; [facility] Opioid abuse - continuous PAIN MANAGEMEN T NEW CONSULT with TIANNAANDRA JONES [facility] 04/24/2019 Last Documented On 0 3:32PM ; [facility] Instructions Includes: Instructions for all patient encounters Instructions to patient Intervention and counseling on cessation of tobacco use : Patient recieved smoking cessation handout Last Documented On 0 3:18PM ; [facility] Medical Equipment - Implanted Devices Includes: Current and historical Devices No Medical Equipment Recorded Medications Includes: Current and historical Medications Current Medications (continue as prescribed) lamoTRIgine 100 MG Oral Tablet 04/24/2019 Provider: Diagnosis: Last Documented On 0 3:17PM By Louise SANDOVAL ; [facility] clonazePAM 2 MG Oral Tablet 04/24/2019 Provider: Diagnosis: Last Documented On 0 3:17PM By Louise SANDOVAL ; [facility] traZODone HCl 100 MG Oral Tablet 04/24/2019 Provider : Diagnosis: Last Documented On 0 3:17PM By Lousie SANDOVAL ; [facility] Gabapentin 600 MG Oral Tablet 04/24/2019 Provider: Diagnosis: Last Documented On 0 3:54PM By Louise SANDOVAL ; [facility] Narcan 4 MG/0.1ML Nasal Liquid 04/24/2019 Provider: TIANNA SMITH Diagnosis: as directed Last Documented On 0 4:26PM By TIANNA SMITH ; [facility] Gabapentin 100 MG Oral Capsule 04/24/2019 Provider: TIANNA SMITH Diagnosis: Spinal stenosis, lumbar region with neurogenic claudication 2 po TIDto be taken with cur rent dose Last Documented On 0 4:26PM By TIANNA SMITH ; [facility] Medications Administered Includes: Administered Medications in patient's chart No Administered Medications Recorded Results Includes: Results from 01/25/2024 through 01/24/2025 No Results Recorded For Specified Dates History of Present Illness History of Present Illness not supported for this document type No History of Present Illness Recorded Social History Description Last Updated 04/24/2019 Last Documented On 0 3:32PM ; [facility] No consumption of alcohol 04/24/2019 Last Documented On 0 3:32PM ; [facility] Tobacco use 04/24/2019 Last Documented On 0 3:32PM ; [facility] Using marijuana 04/24/2019 Last Documented On 0 3:32PM ; [facility] Smoking status : Current everyday smoker 04/24/2019 Last Documented On 0 3:32PM ; [facility] Medical History Includes: Medical History in patient's chart Description Last Updated SCS placement 2019 04/24/2019 Last Documented On 0 3:32PM ; [facility] History of arthritis 04/24/2019 Last Documented On 0 3:32PM ; [facility] History of diabetes mellitus 04/24/2019 Last Documented On 0 3:32PM ; [facility] History of hypertension 04/24/2019 Last Documented On 0 3:32PM ; [facility] No history of cancer 04/24/2019 Last Documented On 0 3:32PM ; [facility] No history of chronic obstructive pulmon josé luis disease 04/24/2019 Last Documented On 0 3:32PM ; [facility] No history of convulsive disorder 2019 Last Documented On 0 3:32PM ; [facility] No history of sexually transmitted disea se 04/24/2019 Last Documented On 0 3:32PM ; [facility] No history of stroke syndrome 04/24/2019 Last Documented On 0 3:32PM ; [facility] No reported cardiovascular symptoms 04/12 Last Documented On 0 3:32PM ; [facility] No reported easy bleeding 04/24/2019 Last Documented On 0 3:32PM ; [facility] No reported recurrent infections 020 Last Documented On 0 3:32PM ; [facility] Family History Includes: Family [...] Subscriber Relationship Effect aviva Dates 1 - [facility] [employer] [id number] HIEN Chavez 2 - MEDICAID [facility] [id number] HIEN Chavez Clinical Notes Includes: Signed Clinical Notes starting from 03/03/2022 No Clinical Notes Recorded
--- OUTSIDE RECORDS SUMMARY | 2025-01-24 11:18 | XMS_ITS | Clinical Summary ---
Author Organization [facility] Address [address] [place] [address] Phone Care Team Providers Care Communications Professional Name Role Phone Selene, Brigida Hodgson APRN, MARIA Primary Care Provider Rich Gaston APRN, MARIA Unavailable [phone] Miguel Jerome MD Unavailable [phone] Allergies No known active allergies Medications ALPRAZolam 2 MG Tablet 07/04/19 Active gabapentin (NEURONTIN) 800 MG Tablet Take 800 mg by mouth 3 times daily. 01/11/20 24 Active Insulin Lispro, 1 Unit Dial, 100 UNIT/ML Solution Pen-injector 11/27/19 24 Active Jardiance 25 MG Tablet 12/20/19 24 Active methadone (DOLOPHINE) 10 MG/ML Concentrate Take by mouth. Active ondansetron (ZOFRAN) 8 MG Tablet 01/07/20 24 Active PARoxetine (PAXIL) 20 MG Tablet 07/04/19 20 Active tiZANidine (ZANAFLEX) 4 MG Tablet 12/24/19 24 Active zolpidem (AMBIEN) 10 MG Tablet [...] 24 hours). 90 Tablet 02/25/19 25 Active cloNIDine (CATAPRES) 0.1 MG Tablet Take 0.1 mg by mouth daily. 04/11/19 25 Active metoclopramide (REGLAN) 10 MG Tablet 03/14/19 25 Active Active Problems Problem Noted Date Diagnosed Date Somatic symptom disorder, pe rsistent, severe, with predominant pain 12/24/2017 Bipolar disorder 12/24/2017 Chronic pain syndrome 12/24/2017 Family History Medical History Relation Name Comments Dementia Father Diabetes Father Hypertension Father Breast Cancer Mother Relation Name Status Comments Father Alive Mother Alive Social History Tobacco Use Types Packs/Day Years Used Date Smoking Tobacco: Every Day Cigarettes 0.5 22.9 Started: 02/12/2002 Smokeless Tobacco: Never Tobacco Cessation:Ready to Q [...] Sign Reading Time Taken Comments Blood Pressure 140/96 05/15/2024 2:02 PM CDT Pulse 86 05/15/2024 2:02 PM CDT Temperature 36.7 C (98.1 F) 05/15/2024 2:02 PM CDT Respiratory Rate 18 05/15/2024 2:02 PM CDT Oxygen Saturation 95% 05/15/2024 2:02 PM CDT Inhaled Oxygen Concentration - - Weight 113.1 kg (249 lb 6.4 oz) 05/15/2024 2:02 PM CDT Height 190.5 cm (6' 3) 05/15/2024 2:0 2 PM CDT Body Mass Index 31.17 05/15/2024 2:02 PM CDT Plan of Treatment Health Maintenance Due Date Last Done Comments TdaP Immunization 1985 Varicella Immunization (1 of 2 - 13+ 2-dose series) 07/14/1999 Pneumococcal Immunization Combined (2 of 2 - PCV) 11/21/2014 11/21/2013 Influenza Immunization (#1) 2024 02/23/2015, 1 SARS-COV-2 Immunization ( season) 2024 07/10/2020, 06/12/2020 Respiratory Syncytial Virus (RSV) Immunization (Adult) (1 - 1-dose 75+ series) 2061 Hepatitis B Immunization Completed 997, 06/16/1996, 05/19/1996 DTaP/Tdap/Td Immunization Discontinued 2001, 06/17/1991, 02/17/1988, Additional history exists Hepatitis C Virus (HCV) Screening Completed 08/21/2022, 10/26/2015 Human Papillomavirus (HPV) Immunization (No Doses Required) Completed Meningococcal Immunization (ACWY) Aged Out No longer [...] A IGM ANTIBODY NON DETECTED NON DETECTED [address] B 08/22/2022 1:46 AM CDT [facility] Comment: IGM Antibodies to HAV not detected. Does not exclude early acute or recovered HAV infection. HEP B CORE AB (IGM) NON DETECTED NON DETECTED [address] B 08/22/2022 1:46 AM CDT [facility] Comment:IGM anti-HBC not det ected. Does not exclude the possibility of exposure to or infection with HBV. HEPATITIS B SURFACE ANTIGEN NON DETECTED NON DETECTED [address] B 08/22/2022 1:46 AM CDT [facility] Comment:A nonreactive test r esult does not exclude the possibility of exposure to or infection with Hepatitis B virus. A nonreactive test result in individuals with prior exposure to hepatitis B may be due to antigen levels below the detection limit of this assay or lack of antigen reactivity to the antibodies in this assay. hepatitis C antibody 6.76(H) <1 S/CO [facility] [id number] B 08/22/2022 1:46 AM CDT [facility] Comment: Signal/Cutoff ratio < 0.79 is Nondetected Signal/Cutoff ratio 0.80-0.99 is Grayzone Signal/Cutoff ratio > 0.99 is Detected Supplemental assays are recommended if signal/cutoff ratio is >/=1.00. Signal/cutoff ratio result >/= 5.00 is 97% predictive of positivity for recombinant immunoblot assay (RIBA) and will be reported to the [place] [facility] as required. Result faxed to the [facility] Blood Venipuncture / Unknown 08/21/2022 10:21 AM CDT 08/21/2022 11:23 AM CDT us Valdez Echols MD HEMATOLOGY ORDERABLES Final Res ult [facility] [address] [place] [address], from Last 3 Months or Most Recently Relevant to Health Maintenance Insurance MEDICAID [facility] Care Teams Communications Professional Relationship Specialty Start Date End Date Brigida Morton APRN, CNP [address] [place] [address] PCP - General Advanced Practice Nurse 01/17/24 Rich Gaston APRN, CNP [address] [place] [address] Nurse Practitioner Advanced Practice Nurse 02/20/24 Miguel Jerome MD [address] [place] [address] Consulting Physician Neurology 05/14/24
--- OUTSIDE RECORDS SUMMARY | 2025-01-24 11:18 | XMS_ITS ---
Care Plan - [facility] Created on: January 24, 2025 HIEN RUIZ : 1985 Sex: Male Author Organization [facility] Address [address] [place] [address] Phone Care Team Providers Care Internet Sales Director Name Role Phone Unavailable Unavailable Unavailable
--- NOTE | 2025-01-24 11:23 | ED.SKABFB ---
HPI - Skin/Abscess/Foreign Bdy General Chief complaint: Skin/Abscess/Foreign Body Stated complaint: right wrist infection/iv drug use Source: patient Mode of arrival: ambulatory Limitations: no limitations History of Present Illness HPI narrative: This is a 31-year-old male history of drug abuse presents with redness as right wrist area with no abscess no drainage has a brisk radial pulse on the right with some mild swelling in the area of redness is warm and tender to touch. No fever chills no shortness of breath. complaint: abscess/boil Onset (ago): day(s) Tetanus up to date: yes Location: R hand Severity: mild Related Data Home Medications ?Medication ?Instructions ?Recorded ?Confirmed ?Last Taken ?Type alprazolam 2 mg tablet 2 mg PO TID PRN anxiety 09/20/21 02/03/24 02/03/24 History insulin glargine 100 unit/mL (3 30 unit subcut QHS 09/20/21 02/03/24 02/02/24 History mL) subcutaneous pen (Basaglar KwikPen U-100 Insulin) insulin lispro 100 unit/mL 1 sliding scale dose subcut 09/20/21 02/03/24 02/03/24 History subcutaneous pen USEASDIRECTD paroxetine HCl 40 mg tablet (Paxil) 40 mg PO DAILY 09/20/21 02/03/24 02/03/24 History atorvastatin 40 mg tablet 40 mg PO QPM 02/03/24 02/03/24 02/03/24 History clonazepam 1 mg tablet 1 mg PO DAILY 02/03/24 02/03/24 02/03/24 History empagliflozin 25 mg tablet 25 mg PO DAILY 02/03/24 02/03/24 02/03/24 History (Jardiance) Allergies Allergy/AdvReac Type Severity Reaction Status Date / Time No Known Allergies Allergy Verified 01/24/25 11:22 Review of Systems Review of Systems: All systems reviewed & are unremarkable except as noted in HPI and below PMFSH Past Medical History Medical History (Updated 01/24/25 @ 11:35 by Aung Olmos MD) Opioid use disorder Drug abuse Diabetes Surgical History Surgical History History of back surgery Family History Family History Father Diabetes mellitus Social History Social History Smoking status: Current every day smoker Substance use: current Substance use type: opiates Gender identity (if verbalized by the patient): Male Exam Const: General: healthy appearing and no acute distress Nutritional Appearance: well nourished Orientation/consciousness: patient oriented x3 Limitations: no limitations Neck: Neck: normal visual inspection, no lymphadenopathy and no meningeal signs Chest: Chest palpation & inspection: normal inspection of the chest Resp: Effort & Inspection: normal respiratory effort Auscultation: clear to auscultation bilaterally Cardio: Rate: regular rate Rhythm: regular rhythm GI: GI Palp: Yes Soft to palpation Auscultation: normal bowel sounds Skin: Other: Area of erythema approximately 3cm in diameter warm and tender right wrist area Course Course Emergency Course: Medical decision making Bridgette of: The patient was evaluated by myself in the emergency department. History obtained from the patient as an historian physical exam performed. Augmentin was administered p.o.. Repeat assessment: Patient is doing well with no acute distress Symptoms are stable since arrival to the ED. Repeat vitals are stable Patient agrees with discussion after shared medical decision-making and agrees with discharge All questions answered to patient's satisfaction Advised follow-up with primary in 3 to 5 days. Vital Signs Vital signs: Vital Signs Temperature 37.0 C 01/24/25 11:16 Pulse Rate 93 01/24/25 11:16 Respiratory Rate 20 01/24/25 11:16 Blood Pressure 120/83 01/24/25 11:16 Pulse Oximetry 98 01/24/25 11:16 Oxygen Delivery Room Air 01/24/25 11:16 Temperature 37.0 C 01/24/25 11:16 Pulse Rate 93 01/24/25 11:16 Respiratory Rate 20 01/24/25 11:16 Blood Pressure 120/83 01/24/25 11:16 Pulse Oximetry 98 01/24/25 11:16 Oxygen Delivery Room Air 01/24/25 11:16 MDM Differential Diagnosis Differential Diagnosis: Cellulitis Critical Care Time Critical Care Time Critical Care Time: No Discharge Plan Discharge Clinical Impression: Cellulitis Qualifiers: Site of cellulitis: extremity Site of cellulitis of extremity: upper extremity Laterality: right Qualified Code(s): L03.113 - Cellulitis of right upper limb Patient Disposition: Home Condition: Stable Instructions: Antibiotic Form, Cellulitis (ED) Additional Instructions: Advised patient to take medication as prescribed and take Tylenol or Motrin as needed and follow with primary in 3 to 5 days. Patient Language: Vietnamese Prescriptions: New amoxicillin-pot clavulanate [Augmentin] 500-125 mg tablet 1 tablet PO TID Qty: 30 0RF No Action alprazolam 1 mg tablet 1 mg PO BID Qty: 6 0RF clonidine HCl 0.1 mg tablet 0.1 mg PO Q12H PRN (Reason: withdrawal symptoms) Qty: 14 0RF atorvastatin 40 mg tablet 40 mg PO QPM clonazepam 1 mg tablet 1 mg PO DAILY Jardiance 25 mg tablet 25 mg PO DAILY paroxetine HCl [Paxil] 40 mg tablet 40 mg PO DAILY alprazolam 2 mg tablet 2 mg PO TID PRN (Reason: anxiety) insulin lispro 100 unit/mL insulin pen 1 sliding scale dose subcut USEASDIRECTD insulin glargine [Basaglar KwikPen U-100 Insulin] 100 unit/mL (3 mL) insulin pen 30 unit subcut QHS Follow-up/Referrals: Katerin,CORY Carranza [Primary Care Provider] Time of Disposition: 11:36
== END 2025-01-24 12:26 | disposition home or self-care (01) ==
LOC: CHSED 11:42
PROVIDERS: Emergency Provider Emergency Medicine; PCP Physician Assistant
DX: L03.113 Cellulitis of right upper limb (principal); E11.9 Type 2 diabetes mellitus without complications; F17.200 Nicotine dependence, unspecified, uncomplicated
CPT/HCPCS: 99283; A9270